=== PATIENT | female | born 1980 | race Caucasian/White ===

== ENCOUNTER 2017-12-20 22:21 | Emergency (ER) | payer OTHER ==
--- OUTSIDE RECORDS SUMMARY | 2017-12-20 22:23 | XMS REPORT | Summary of Care ---
:1980 Author Name Elsa Crockett R.N. Address [facility] Unavailable , Care Team Providers Name Role Phone LEXY NICHOLAS M.D. Unavailable Unavailable Functional Status Name Dates Details Functional status health issues are not documented Status: Name Dates Details Cognitive status health issues are not documented Status: Problems Name Dates Details S/P cholecystectomy (V45.79, Z90.49) Status: Active Medications Name Dates Details No Reported Medications Refills: 0 Active Allergies and Adverse Reactions Name Dates Details No Known Drug Allergies (Allergy) Status: Active Procedures Procedure Dates Details Procedures not documented Immunization Name Dates Details Immunizations not documented Family History Name Dates Details No pertinent family history Status: Active Social History Name Dates Details - Status: Name Dates Details Former smoker Vital Signs Date Test Result Details [id number] BP Systolic 119 mm[Hg] Status: BP Diastolic 76 mm[Hg] Status: Height 63 in Status: Weight 293 lb Status: Body Mass Index Calculated 51.9 kg/m2 Status: Body Surface Area Calculated 2.27 m2 Status: Temperature 98.2 f Status: Heart Rate 91 /min Status: [id number] BP Systolic 137 mm[Hg] Status: BP Diastolic 86 mm[Hg] Status: Height 63 in Status: Weight 283 lb Status: Body Mass Index Calculated 50.13 kg/m2 Status: Body Surface Area Calculated 2.24 m2 Status: Temperature 98.1 f Status: Heart Rate 94 /min Status: [id number] BP Systolic 117 mm[Hg] Status: BP Diastolic 76 mm[Hg] Status: Height 63 in Status: Weight 282 lb Status: Body Mass Index Calculated 49.95 kg/m2 Status: Body Surface Area Calculated 2.24 m2 Status: Temperature 98 f Status: Heart Rate 73 /min Status: Results Date Description Value Details [id number] Tobacco Use Screening Completed DONE Plan of Care Name Dates Details Planned Observations Planned Goals not documented Interventions Provided InstructionsPatient Specific Education Given; Done: 05 Sep 2017 Instructions Name Dates Details Instructions not documented Encounters Appointment; GENERAL, SERVICE On: 08-Aug-2017 13:00 Encounter Diagnosis: Problem not documented Appointment; GENERAL, SERVICE On: 15-Aug-2017 13:15 Encounter Diagnosis: Problem not documented Appointment; GENERAL, SERVICE On: 05-Sep-2017 13:15 Encounter Diagnosis: Problem not documented
--- NOTE | 2017-12-21 00:45 | ER ---
Nurse's Notes [facility] Name: Varsha Salvador Age: 37 yrs Sex: Female : 1980 Arrival Date: 12/20/2017 Time: 22:25 Bed 26 Private MD: Faisal Treviño Diagnosis: Pain in left shoulder Presentation: 12/20 22:50 Presenting complaint: Patient states: she is having left shoulder pain for a couple of bb years but over the last couple of months it has gotten worse and the last couple of nights the pain is worse with movement and the first three fingers of her left hand are numb. 23:28 Transition of care: patient was not received from another setting of care. Onset of lp1 symptoms was December 20, 2017. Risk Assessment: Do you want to hurt yourself or someone else? Patient reports no desire to harm self or others. Initial Sepsis Screen: Does the patient meet any 2 criteria? No. Patient's initial sepsis screen is negative. Does the patient have a suspected source of infection? No. Patient's initial sepsis screen is negative. Care prior to arrival: None. 23:28 Method Of Arrival: Ambulatory lp1 23:28 Acuity: KEDAR 4 lp1 Historical: - Allergies: 22:49 No Known Allergies; bb - Home Meds: 22:49 beysoprolol [Active]; Metformin Oral [Active]; bb - PMHx: 22:49 Diabetes - NIDDM; Hypertension; bb - PSHx: 22:49 Cholecystectomy; bb - Immunization history:: Adult Immunizations up to date. - Social history:: Smoking status: Patient uses tobacco products, smokes one-half pack cigarettes per day, Patient/guardian denies using alcohol, street drugs. - Ebola Screening: : No symptoms or risks identified at this time. Screenin:29 Abuse screen: Denies threats or abuse. Denies injuries from another. Nutritional lp1 screening: No deficits noted. Tuberculosis screening: No symptoms or risk factors identified. Fall Risk None identified. Assessment: 22:45 General: Appears uncomfortable, obese, Behavior is calm, cooperative, Reports she is bb having left shoulder pain for a couple of years but over the last couple of months the pain is getting worse and then last night she is having even more pain with movement and she is having numbness to the first three fingers of her left hand, pt states her PCP says it is probably "impingement" and wants her to see ortho but she cannot get an appt until the end of January. Pain: Complains of pain in left shoulder Pain currently is 1 out of 10 on a pain scale. at worst was 10 out of 10 on a pain scale. Neuro: Level of Consciousness is awake, alert, obeys commands, Oriented to person, place, time, situation. 23:38 Reassessment: Patient appears in no apparent distress at this time. No changes from lp1 previously documented assessment. Patient and/or family updated on plan of care and expected duration. Pain level reassessed. 12/21 01:00 Reassessment: Patient appears in no apparent distress at this time. Patient and/or lp1 family updated on plan of care and expected duration. Pain level reassessed. Patient is alert, oriented x 3, equal unlabored respirations, skin warm/dry/pink. Vital Signs: 12/20 22:49 BP 161 / 78; Pulse 70; Resp 18 S; Temp 98.4(O); Pulse Ox 98% on R/A; Weight 133.81 kg bb (R); Height 5 ft. 3 in. (160.02 cm) (R); Pain 07/31; 12/21 01:00 BP 149 / 75; Pulse 73; Resp 18; Pulse Ox 98% on R/A; lp1 12/20 22:49 Body Mass Index 52.26 (133.81 kg, 160.02 cm) ED Course: 12/20 22:25 Patient arrived in ED. es 22:25 Faisal Treviño MD is Private Physician. es 22:34 [facility] pm1 22:34 Mohan Encinas MD is Attending Physician. pm1 22:39 Arm band placed on. bb 23:02 X-ray completed. Portable x-ray completed in exam room. Patient tolerated procedure jw2 well. 23:04 XRAY Shoulder LEFT 2 view In Process Unspecified. EDMS 23:19 Swati Cook, JC is Primary Nurse. lp1 23:29 Triage completed. lp1 23:29 Patient has correct armband on for positive identification. lp1 23:38 Sling applied to left arm. lp1 12/21 00:44 Jose Diaz MD is Referral Physician. pm1 01:20 No provider procedures requiring assistance completed. Patient did not have IV access lp1 during this emergency room visit. Administered Medications: No medications were administered Outcome: 00:44 Discharge ordered by MD. pm1 01:20 Discharged to home ambulatory. lp1 01:20 Condition: good 01:20 Discharge instructions given to patient, Instructed on discharge instructions, follow up and referral plans. medication usage, Demonstrated understanding of instructions, follow-up care, medications, Prescriptions given X 1. 01:20 Patient left the ED. lp1 Signatures: Dispatcher [employer] EDClaudia Ortez Brenda, RN RN bb Swati Cook RN RN lp1 Alcides Esquivel NP [employer] pm1 Rima Croea jw2
--- NOTE | 2017-12-21 00:45 | EDPHYS ---
Physician Documentation [facility] Name: Varsha Salvador Age: 37 yrs Sex: Female : 1980 Arrival Date: 12/20/2017 Time: 22:25 Bed 26 Private MD: Faisal Treviño ED Physician Mohan Encinas HPI: 12/20 23:00 This 37 yrs old Female presents to ER via Ambulatory with complaints of pm1 Shoulder Pain. 23:00 The patient or guardian complains of pain. left shoulder. Context: The problem was pm1 sustained at an unknown site, resulted from an unknown reason, The patient reports no decreased range of motion. The patient reports no obvious deformity. Onset: The symptoms/episode began/occurred Patient with left shoulder pain for two years but it has gotten worse the past few weeks. has been evaluated by PCP and has been referred to orthopedics. PCP impression is shoulder impingement. Historical: - Allergies: 22:49 No Known Allergies; bb - Home Meds: 22:49 beysoprolol [Active]; Metformin Oral [Active]; bb - PMHx: 22:49 Diabetes - NIDDM; Hypertension; bb - PSHx: 22:49 Cholecystectomy; bb - Immunization history:: Adult Immunizations up to date. - Social history:: Smoking status: Patient uses tobacco products, smokes one-half pack cigarettes per day, Patient/guardian denies using alcohol, street drugs. - Ebola Screening: : No symptoms or risks identified at this time. ROS: 23:00 Constitutional: Negative for fever, chills, and weight loss, Eyes: Negative for injury, pm1 pain, redness, and discharge, ENT: Negative for injury, pain, and discharge, Neck: Negative for injury, pain, and swelling, Cardiovascular: Negative for chest pain, palpitations, and edema, Respiratory: Negative for shortness of breath, cough, wheezing, and pleuritic chest pain, Abdomen/GI: Negative for abdominal pain, nausea, vomiting, diarrhea, and constipation, Back: Negative for injury and pain. 23:00 Skin: Negative for injury, rash, and discoloration, Neuro: Negative for headache, weakness, numbness, tingling, and seizure. 23:00 MS/extremity: Positive for pain, of the left shoulder, Negative for paresthesias, tingling. Exam: 23:00 Constitutional: This is a well developed, well nourished patient who is awake, alert, pm1 and in no acute distress. Head/Face: Normocephalic, atraumatic. Neck: Trachea midline, no thyromegaly or masses palpated, and no cervical lymphadenopathy. Supple, full range of motion without nuchal rigidity, or vertebral point tenderness. No Meningismus. Chest/axilla: Normal chest wall appearance and motion. Nontender with no deformity. No lesions are appreciated. Cardiovascular: Regular rate and rhythm with a normal S1 and S2. No gallops, murmurs, or rubs. Normal PMI, no JVD. No pulse deficits. Respiratory: Lungs have equal breath sounds bilaterally, clear to auscultation and percussion. No rales, rhonchi or wheezes noted. No increased work of breathing, no retractions or nasal flaring. Abdomen/GI: Soft, non-tender, with normal bowel sounds. No distension or tympany. No guarding or rebound. No evidence of tenderness throughout. Back: No spinal tenderness. No costovertebral tenderness. Full range of motion. Skin: Warm, dry with normal turgor. Normal color with no rashes, no lesions, and no evidence of cellulitis. 23:00 Musculoskeletal/extremity: Extremities: grossly normal except: noted in the left shoulder: left shoulder: painful passive range of motion. passive range of motion intact. , Circulation is intact in all extremities. Pulses: noted to be 2+ in the left radial artery, Sensation intact. 23:00 Neuro: Orientation: is normal, Motor: moves all fours, Sensation: is normal, no obvious gross deficits, Gait: is steady, at a normal pace, without difficulty. Vital Signs: 22:49 BP 161 / 78; Pulse 70; Resp 18 S; Temp 98.4(O); Pulse Ox 98% on R/A; Weight 133.81 kg bb (R); Height 5 ft. 3 in. (160.02 cm) (R); Pain 07/31; 12/21 01:00 BP 149 / 75; Pulse 73; Resp 18; Pulse Ox 98% on R/A; lp1 12/20 22:49 Body Mass Index 52.26 (133.81 kg, 160.02 cm) bb MDM: 12/20 22:34 Patient medically screened. pm1 12/21 00:43 Data reviewed: vital signs. Data interpreted: Pulse oximetry: on room air is 98 %. pm1 Interpretation: normal. Counseling: I had a detailed discussion with the patient and/or guardian regarding: the historical points, exam findings, and any diagnostic results supporting the discharge/admit diagnosis, radiology results, the need for outpatient follow up, to return to the emergency department if symptoms worsen or persist or if there are any questions or concerns that arise at home. 12/20 22:45 Order name: XRAY Shoulder LEFT 2 view; Complete Time: 15:40 bb 12/20 23:06 Order name: Sling; Complete Time: 23:37 pm1 Administered Medications: No medications were administered Disposition: 12/21/17 00:44 Discharged to Home. Impression: Pain in left shoulder. - Condition is Stable. - Discharge Instructions: Shoulder Pain, Arm Sling Use, [id number]. - Prescriptions for Tramadol 50 mg Oral Tablet - take 1 tablet by ORAL route every 8 hours as needed; 12 tablet. - Medication Reconciliation Form, Thank You Letter, Antibiotic Education, Prescription Opioid Use form. - Follow up: Emergency Department; When: As needed; Reason: Worsening of condition. Follow up: Jose Diaz MD; When: 2 - 3 days; Reason: Recheck today's complaints, Continuance of care, Re-evaluation by your physician. - Problem is new. - Symptoms have improved. Addendum: 12/23/2017 07:13 Co-signature as Attending Physician, Mohan Encinas MD I agree with the assessment and c medley plan of care. Signatures: Dispatcher [employer] [facility] Mohan Encinas MD MD cha Ballard, Brenda, RN RN bb Swati Cook RN RN lp1 Alcides Esquivel NP [employer] pm1 Corrections: (The following items were deleted from the chart) 12/21 01:20 00:44 12/21/2017 00:44 Discharged to Home. Impression: Pain in left shoulder. Condition lp1 is Stable. Forms are Medication Reconciliation Form, Thank You Letter, Antibiotic Education, Prescription Opioid Use. Follow up: Emergency Department; When: As needed; Reason: Worsening of condition. Follow up: Jose Diaz; When: 2 - 3 days; Reason: Recheck today's complaints, Continuance of care, Re-evaluation by your physician. Problem is new. Symptoms have improved. pm1
--- NOTE | 2017-12-21 10:30 | RAD REPORT ---
EXAM DESCRIPTION: RAD - Shoulder Left 2 View - 12/20/2017 11:04 pm CLINICAL HISTORY: Persistent left shoulder pain with recent worsening of symptoms COMPARISON: None. TECHNIQUE: Internal and external rotation views of the left shoulder were obtained. FINDINGS: There is no fracture or dislocation. Minimal degenerative change along the articular surfa ce of the clavicle. No measurable spurring. Acromial humeral joint space normal with no abnormal soft tissue calcification. No acute or destructive finding. IMPRESSION: Negative two-view left shoulder examination for acute finding. Minimal AC joint degener ative change.
== END 2017-12-21 01:20 | disposition home or self-care (01) ==
LOC: ER 22:21
DX: M25.512 Pain in left shoulder (principal); I10 Essential (primary) hypertension; E11.9 Type 2 diabetes mellitus without complications; F17.210 Nicotine dependence, cigarettes, uncomplicated
CPT/HCPCS: 99283

== ENCOUNTER 2019-12-25 17:36 | Emergency (ER) | payer OTHER ==
--- OUTSIDE RECORDS SUMMARY | 2019-12-25 17:44 | XMS REPORT | Continuity of Care Document ---
:1980 Author Organization [facility] t Address [address] [place] [address] Care Team Providers Name Role Phone GENERAL Attending Clinician Unavailable Problems Condition Condition Condition Status Onset Resolution Last Treating Co mments Source Name Details Category Date Date Treatment Clinician Date S/P S/P Problem Active [facility] [place] [facility] Allergies, Adverse Reactions, Alerts This patient has no known allergies or adverse reactions. Social History Smoking Status Start Date Stop Date Source Former smoker [facility] Medications This patient has no known medications. Vital Signs Vital Name Observation Time Observation Value Comments Source BP Systolic 2017-09-05 13:19:00 119 mm[Hg] [facility] [place] [facility] BP Diastolic 2017-09-05 13:19:00 76 mm[Hg] [facility] [place] [facility] Height 2017-09-05 13:19:00 63 [in_us] [facility] [place] [facility] Weight 2017-09-05 13:19:00 293 [lb_av] [facility] [place] [facility] Body Mass Index 2017-09-05 13:19:00 51.9 kg/m2 [facility] Cal[facility] [place] [facility] Temperature 2017-09-05 13:19:00 98.2 [degF] [facility] [place] [facility] Heart Rate 2017-09-05 13:19:00 91 /min [facility] [place] [facility] BP Systolic 2017-08-15 13:52:00 137 mm[Hg] [facility] [place] [facility] BP Diastolic 2017-08-15 13:52:00 86 mm[Hg] [facility] [place] [facility] Height 2017-08-15 13:52:00 63 [in_us] [facility] [place] [facility] Weight 2017-08-15 13:52:00 283 [lb_av] [facility] [place] [facility] Body Mass Index 2017-08-15 13:52:00 50.13 kg/m2 [facility] [place] [facility] Temperature 2017-08-15 13:52:00 98.1 [degF] [facility] [place] [facility] Heart Rate 2017-08-15 13:52:00 94 /min [facility] [place] [facility] BP Systolic 2017-08-08 12:58:00 117 mm[Hg] [facility] [place] [facility] BP Diastolic 2017-08-08 12:58:00 76 mm[Hg] [facility] [place] [facility] Height 2017-08-08 12:58:00 63 [in_us] [facility] [place] [facility] Weight 2017-08-08 12:58:00 282 [lb_av] [facility] [place] [facility] Body Mass Index 2017-08-08 12:58:00 49.95 kg/m2 [facility] [place] [facility] Temperature 2017-08-08 12:58:00 98 [degF] [facility] [place] [facility] Heart Rate 2017-08-08 12:58:00 73 /min [facility] [place] [facility] Procedures This patient has no known procedures. Encounters Start End Encounter Admission Attending Care Care Encounter Source Date/Time Date/Time Type Type Clinicians Facility Department ID 2017-09-05 [facility] General [id number] [facility] 13:15:00 13:15:00 t; SERVICE [facility] [place] [place] [facility] ans 2017-08-15 2017-08-[facility] General [id number] [facility] 13:15:00 13:15:00 t; SERVICE Surgery [facility], [place] [facility] 2017-08-08 2017-08-08 Appointmen GENERAL, [facility] UTP [id number] [facility] 13:00:00 13:00:00 t; SERVICE [facility] [place] [place] [facility] ans Results Test Description Test Time Test Comments Results Result Comments Source Tobacco Use Screening 2017-08-08 19:00:00 Test Item Value Reference Range Interpretation Comme nts Completed (test code = Completed) DONE [facility]
[2019-12-25 21:01] LABS: Absolute Lymphocytes (CBC) 2.6 K/uL (0.7-4.9); Basophils % 0.8 % (0-1.3); Hematocrit 44.9 % (36.0-45.0); Lymphocytes % 19.3 % (15.3-44.8); MPV 8.3 fL (7.6-11.3); RBC Red Blood Cell Count 4.84 M/uL (3.86-4.86)
[2019-12-25 21:23] LABS: ALT/SGPT 39 U/L (12-78); AST/SGOT 15 U/L (15-37); Albumin 3.6 g/dL (3.4-5.0); Alkaline Phosphatase 64 U/L (45-117); BUN Blood Urea Nitrogen 18 mg/dL (7-18); Bicarbonate 25 mmol/L (21-32); Bilirubin Direct < 0.1 mg/dL (0-0.2); Bilirubin Total 0.3 mg/dL (0.2-1.0); Glucose Level 125 mg/dL (74-106); Lipase 76 U/L (73-393); Protein, Total 7.7 g/dL (6.4-8.2); Sodium Level 140 mmol/L (136-145)
[2019-12-25] MEDS ORDERED: NA CHLORIDE 0.9% 1,000 ML ONE (21:27)
[2019-12-25 21:30] LABS: Urine Blood 3+ (NEG); Urine Glucose NEGATIVE (NEG); Urine Protein NEGATIVE (NEG); Urine Specific Gravity 1.025 (1.005-1.030)
[2019-12-25 21:30] LABS: Urine Specific Gravity 1.025 (1.005-1.030)
--- NOTE | 2019-12-25 22:39 | ER ---
Nurse's Notes [facility] Name: Varsha Salvador Age: 39 yrs Sex: Female : 1980 Arrival Date: 12/25/2019 Time: 17:39 Bed 14 Private MD: Faisal Treviño Diagnosis: Right 6 mm proximal ureteral calculus with mild right hydronephrosis and proximal hydroureter Presentation: 12/24 17:44 Chief complaint: Patient states: Right lower back pain that wraps around to right ll1 abdomen since last night at work. Slight nausea. No fever. Coronavirus screen: Proceed with normal triage. Patient denies a cough. Patient denies shortness of breath or difficulty breathing. Patient denies measured and/or subjective temperature greater than 100.4F prior to today's visit. Patient denies travel on a cruise ship or to a country the [facility] currently lists as an affected area. Patient denies contact with known and/or suspected case of COVID-19. Ebola Screen: Patient denies travel to an Ebola-affected area in the 21 days before illness onset. Initial Sepsis Screen: Does the patient meet any 2 criteria? No. Patient's initial sepsis screen is negative. Risk Assessment: Do you want to hurt yourself or someone else? Patient reports no desire to harm self or others. Onset of symptoms was December 24, 2019. 17:44 Method Of Arrival: Ambulatory ll1 17:44 Acuity: KEDAR 3 ll1 Historical: - Allergies: 17:46 Latex, Natural Rubber; ll1 17:46 adhesive tape-silicones; ll1 - PMHx: 17:46 Diabetes - NIDDM; Hypertension; ll1 - PSHx: 17:46 Cholecystectomy; ll1 - Immunization history:: Adult Immunizations up to date, Flu vaccine is not up to date. - Social history:: Smoking status: Patient reports the use of cigarette tobacco products, smokes one-half pack cigarettes per day, Patient/guardian denies using alcohol, street drugs, tobacco products. Screenin:15 Abuse screen: Denies threats or abuse. Nutritional screening: No deficits noted. jb4 Tuberculosis screening: No symptoms or risk factors identified. Fall Risk None identified. Assessment: 19:15 General: Appears in no apparent distress. uncomfortable, Behavior is calm, cooperative, jb4 appropriate for age. Pain: Complains of pain in right low back Pain radiates to right lower quadrant Pain currently is 6 out of 10 on a pain scale. Quality of pain is described as throbbing, Pain began 1 day ago. Is intermittent. Neuro: Level of Consciousness is awake, alert, obeys commands, Oriented to person, place, time, situation. Cardiovascular: Patient's skin is warm and dry. Respiratory: Airway is patent Respiratory effort is even, unlabored, Respiratory pattern is regular, symmetrical. GI: Abdomen is non-distended, obese, Bowel sounds present X 4 quads. Abd is soft and non tender X 4 quads. : No signs and/or symptoms were reported regarding the genitourinary system. EENT: No signs and/or symptoms were reported regarding the EENT system. Derm: Skin is intact, Skin is pink, warm \T\ dry. Musculoskeletal: Circulation, motion, and sensation intact. Range of motion: intact in all extremities. 20:30 Reassessment: Patient appears in no apparent distress at this time. Patient and/or jb4 family updated on plan of care and expected duration. Pain level reassessed. Patient is alert, oriented x 3, equal unlabored respirations, skin warm/dry/pink. 21:30 Reassessment: Patient appears in no apparent distress at this time. Patient and/or jb4 family updated on plan of care and expected duration. Pain level reassessed. Patient is alert, oriented x 3, equal unlabored respirations, skin warm/dry/pink. 22:30 Reassessment: Patient appears in no apparent distress at this time. Patient and/or jb4 family updated on plan of care and expected duration. Pain level reassessed. Patient is alert, oriented x 3, equal unlabored respirations, skin warm/dry/pink. 22:50 Reassessment: Patient appears in no apparent distress at this time. Patient and/or jb4 family updated on plan of care and expected duration. Pain level reassessed. Patient is alert, oriented x 3, equal unlabored respirations, skin warm/dry/pink. Pt verbalized understanding of d/c and follow up instructions. Denies questions or concerns. Vital Signs: 17:44 BP 183 / 85; Pulse 76; Resp 18; Temp 98.5; Pulse Ox 97% ; Weight 139.25 kg; Height 5 ll1 ft. 3 in. (160.02 cm); Pain 8/10; 19:15 BP 142 / 80; Pulse 69; Resp 16; Pulse Ox 98% on R/A; jb4 21:15 BP 159 / 75; Pulse 83; Resp 16; Pulse Ox 99% on R/A; jb4 22:35 BP 146 / 74; Pulse 69; Resp 16; Pulse Ox 98% on R/A; jb4 17:44 Body Mass Index 54.38 (139.25 kg, 160.02 cm) ll1 ED Course: 17:39 Patient arrived in ED. mr 17:39 Faisal Treviño MD is Private Physician. mr 17:46 Triage completed. ll1 17:47 Arm band placed on Patient notified of wait time. ll1 19:05 Ermias Dowling, JC is Primary Nurse. jb4 19:15 Patient has correct armband on for positive identification. Bed in low position. Call jb4 light in reach. Side rails up X 1. Pulse ox on. NIBP on. 20:27 Fan Garber MD is Attending Physician. pkl 20:45 Initial lab(s) drawn, by ar, sent to lab. Inserted saline lock: 20 gauge in left jb4 antecubital area, using aseptic technique. Blood collected. 21:57 CT Stone Protocol In Process Unspecified. EDMS 22:36 Julio Almonte MD is Referral Physician. pkl 22:50 No provider procedures requiring assistance completed. IV discontinued, intact, jb4 bleeding controlled, No redness/swelling at site. Pressure dressing applied. Administered Medications: 21:20 Drug: NS 0.9% 1000 ml Route: IV; Rate: 1000 ml; Site: left antecubital; jb4 22:20 Follow up: Response: No adverse reaction; IV Status: Completed infusion; IV Intake: jb4 1000ml Intake: 22:20 IV: 1000ml; Total: 1000ml. jb4 Outcome: 22:38 Discharge ordered by . pkl 22:50 Discharged to home ambulatory. jb4 22:50 Condition: stable 22:50 Discharge instructions given to patient, Instructed on discharge instructions, follow up and referral plans. medication usage, Demonstrated understanding of instructions, follow-up care, medications, Prescriptions given X 2. 23:08 Patient left the ED. vc Signatures: Dispatcher [employer] EDMS Fan Garber MD MD pkl Rivera [facility] mr Nitesh, Ermias, RN RN jb4 Socorro Ruiz, RN RN Dean Dorman RN RN ll1
--- NOTE | 2019-12-25 22:39 | EDPHYS ---
Physician Documentation [facility] Name: Varsha Salvador Age: 39 yrs Sex: Female : 1980 Arrival Date: 12/25/2019 Time: 17:39 Bed 14 Private MD: Faisal Treviño ED Physician Fan Garber HPI: 12/24 20:57 This 39 yrs old Female presents to ER via Ambulatory with complaints of pkl Abdominal Pain, Back Pain. 20:57 The patient complains of pain in the right flank. The pain radiates to the right lower pkl quadrant. Onset: The symptoms/episode began/occurred last night. Associated signs and symptoms: Pertinent positives: nausea. The patient has not experienced similar symptoms in the past. Historical: - Allergies: 17:46 Latex, Natural Rubber; ll1 17:46 adhesive tape-silicones; ll1 - PMHx: 17:46 Diabetes - NIDDM; Hypertension; ll1 - PSHx: 17:46 Cholecystectomy; ll1 - Immunization history:: Adult Immunizations up to date, Flu vaccine is not up to date. - Social history:: Smoking status: Patient reports the use of cigarette tobacco products, smokes one-half pack cigarettes per day, Patient/guardian denies using alcohol, street drugs, tobacco products. ROS: 20:57 Eyes: Negative for injury, pain, redness, and discharge, ENT: Negative for injury, pkl pain, and discharge, Neck: Negative for injury, pain, and swelling, Cardiovascular: Negative for chest pain, palpitations, and edema, Respiratory: Negative for shortness of breath, cough, wheezing, and pleuritic chest pain, Abdomen/GI: Negative for abdominal pain, nausea, vomiting, diarrhea, and constipation. 20:57 Back: Positive for flank pain, on the right. 20:57 : Negative for urinary symptoms. 20:57 MS/extremity: Negative for acute changes. 20:57 Skin: Negative for rash. 20:57 Neuro: Negative for altered mental status, loss of consciousness. Exam: 20:57 Head/Face: Normocephalic, atraumatic. Eyes: Pupils equal round and reactive to light, pkl extra-ocular motions intact. Lids and lashes normal. Conjunctiva and sclera are non-icteric and not injected. Cornea within normal limits. Periorbital areas with no swelling, redness, or edema. ENT: Nares patent. No nasal discharge, no septal abnormalities noted. Tympanic membranes are normal and external auditory canals are clear. Oropharynx with no redness, swelling, or masses, exudates, or evidence of obstruction, uvula midline. Mucous membranes moist. Neck: Trachea midline, no thyromegaly or masses palpated, and no cervical lymphadenopathy. Supple, full range of motion without nuchal rigidity, or vertebral point tenderness. No Meningismus. Chest/axilla: Normal chest wall appearance and motion. Nontender with no deformity. No lesions are appreciated. Cardiovascular: Regular rate and rhythm with a normal S1 and S2. No gallops, murmurs, or rubs. Normal PMI, no JVD. No pulse deficits. Respiratory: Lungs have equal breath sounds bilaterally, clear to auscultation and percussion. No rales, rhonchi or wheezes noted. No increased work of breathing, no retractions or nasal flaring. Abdomen/GI: Soft, non-tender, with normal bowel sounds. No distension or tympany. No guarding or rebound. No evidence of tenderness throughout. Back: No spinal tenderness. No costovertebral tenderness. Full range of motion. Skin: Warm, dry with normal turgor. Normal color with no rashes, no lesions, and no evidence of cellulitis. MS/ Extremity: Pulses equal, no cyanosis. Neurovascular intact. Full, normal range of motion. Neuro: Awake and alert, GCS 15, oriented to person, place, time, and situation. Cranial nerves II-XII grossly intact. Motor strength 5/5 in all extremities. Sensory grossly intact. Cerebellar exam normal. Normal gait. Vital Signs: 17:44 BP 183 / 85; Pulse 76; Resp 18; Temp 98.5; Pulse Ox 97% ; Weight 139.25 kg; Height 5 ll1 ft. 3 in. (160.02 cm); Pain 8/10; 19:15 BP 142 / 80; Pulse 69; Resp 16; Pulse Ox 98% on R/A; jb4 21:15 BP 159 / 75; Pulse 83; Resp 16; Pulse Ox 99% on R/A; jb4 22:35 BP 146 / 74; Pulse 69; Resp 16; Pulse Ox 98% on R/A; jb4 17:44 Body Mass Index 54.38 (139.25 kg, 160.02 cm) ll1 MDM: 20:27 Patient medically screened. pkl 22:33 Data reviewed: vital signs, nurses notes, lab test result(s), radiologic studies, CT pkl scan. ED course: Discussed lab. and CT Scan results with patient. Advised to follow up with Dr. Almonte ( Urology ) in 2 to 3 days. Return if necessary. Patient understood instruction. 12/24 19:50 Order name: Basic Metabolic Panel; Complete Time: 22:27 [facility] 12/24 19:50 Order name: CBC with Diff; Complete Time: 22:27 [facility] 12/24 19:50 Order name: Hepatic Function; Complete Time: 22:27 [facility] 12/24 19:50 Order name: Lipase; Complete Time: 22:27 [facility] 12/24 21:23 Order name: Urine --Ancillary (enter results); Complete Time: 22:27 [facility] 12/24 21:24 Order name: Urine Dipstick--Ancillary (enter results); Complete Time: 22:27 [facility] 12/24 19:50 Order name: IV Saline Lock; Complete Time: 21:08 [facility] 12/24 19:50 Order name: Labs collected and sent; Complete Time: 21:08 [facility] 12/24 19:52 Order name: Urine Dipstick-Ancillary (obtain specimen); Complete Time: 21:08 [facility] 12/24 19:52 Order name: Urine Test (obtain specimen); Complete Time: 21:08 [facility] 12/24 20:55 Order name: CT Stone Protocol pkl Administered Medications: 21:20 Drug: NS 0.9% 1000 ml Route: IV; Rate: 1000 ml; Site: left antecubital; [facility] 22:20 Follow up: Response: No adverse reaction; IV Status: Completed infusion; IV Intake: jb4 1000ml Disposition: 12/25/19 22:38 Discharged to Home. Impression: Right 6 mm proximal ureteral calculus with mild right hydronephrosis and proximal hydroureter. - Condition is Stable. - Prescriptions for Tylenol- Codeine #3 300-30 mg Oral Tablet - take 1 tablet by ORAL route every 6 hours As needed; 30 tablet. Flomax 0.4 mg Oral Capsule, Sust. Release 24 hr - take 1 capsule by ORAL route once daily 1/2 hour following the same meal each day; 15 capsule. - Medication Reconciliation Form, Thank You Letter, Antibiotic Education, Prescription Opioid Use form. - Follow up: Julio Almonte MD; When: 2 - 3 days; Reason: Re-evaluation by your physician. - Problem is new. - Symptoms are unchanged. Signatures: Dispatcher [employer] EDMS Fan Garber MD MD pkl Ermias Dowling RN RN jb4 Socorro Ruiz RN RN Dean Dorman RN RN ll1 Corrections: (The following items were deleted from the chart) 23:08 22:38 12/25/2019 22:38 Discharged to Home. Impression: Right 6 mm proximal ureteral vc calculus with mild right hydronephrosis and proximal hydroureter. Condition is Stable. Forms are Medication Reconciliation Form, Thank You Letter, Antibiotic Education, Prescription Opioid Use. Follow up: Julio Almonte; When: 2 - 3 days; Reason: Re-evaluation by your physician. Problem is new. Symptoms are unchanged. pkl
[2019-12-25 23:22] VITALS: TEMP 98.5
[2019-12-25 23:25] VITALS: BP 159/75; O2SAT 99
--- NOTE | 2019-12-26 19:55 | RAD REPORT ---
EXAM DESCRIPTION: CT - Stone Protocol - 12/26/2019 5:08 am CLINICAL HISTORY: The patient is 39 years old and is Female; right flank pain TECHNIQUE: Axial computed tomography images of the abdomen and pelvis without intravenous contrast. Sagittal and coronal reformatted images were created and reviewed. This CT exam was performed usi ng one or more of the following dose reduction techniques: automated exposure control, adjustment o f the mA and/or kV according to patient size, and/or use of iterative reconstruction technique. COMPARISON: No relevant prior studies available. FINDINGS: LIMITATIONS: Suboptimal study secondary to artifact related to patient body habitus. LUNG BASES: Unremarkable. No mass. No consolidation. ABDOMEN: LIVER: The liver is enlarged and diffusely fatty. GALLBLADDER AND BILE DUCTS: Surgical clips are present in the right upper quadrant, consistent wi th previous cholecystectomy. A biliary stent is present. PANCREAS: The pancreas is atrophic. No ductal dilation. SPLEEN: Unremarkable. ADRENALS: A fat-containing 1.7 cm left adrenal gland nodule consistent with a benign adenoma is p resent. No follow-up imaging is recommended. KIDNEYS AND URETERS: Mild right hydronephrosis and proximal hydroureter is present secondary to a 6 mm proximal right ureteral calculus. Edema of the right kidney with perinephric stranding is pr esent. The left kidney is normal. STOMACH AND BOWEL: The stomach is decompressed. The small bowel is normal in caliber. Stool is n oted throughout the colon. There is no mucosal thickening or evidence of bowel obstruction. PELVIS: APPENDIX: The appendix is normal in caliber without surrounding inflammation. BLADDER: The bladder is not well distended. REPRODUCTIVE: Unremarkable as visualized. ABDOMEN and PELVIS: INTRAPERITONEAL SPACE: Unremarkable. No free air. No significant fluid collection. BONES/JOINTS: No acute fracture. SOFT TISSUES: The soft tissues are normal. VASCULATURE: Unremarkable. No abdominal aortic aneurysm. LYMPH NODES: Unremarkable. No enlarged lymph nodes. IMPRESSION: Mild right hydronephrosis and proximal hydroureter is present secondary to a 6 mm proximal right u reteral calculus. Electronically signed by: Abimbola Finch MD 12/25/2019 10:19 PM CDT Due to temporary technical issues with the PACS/Fluency reporting system, reports are being signed by the in house radiologist without review as a courtesy to ensure prompt reporting. The interpreting r adiologist is fully responsible for the content of the report.
== END 2019-12-25 23:08 | disposition home or self-care (01) ==
LOC: ER 17:36
DX: N13.2 Hydronephrosis with renal and ureteral calculous obstruction (principal); N13.4 Hydroureter; Z91.040 Latex allergy status; F17.210 Nicotine dependence, cigarettes, uncomplicated
CPT/HCPCS: 85025; 80048; 36415; 81025; 80076; 81003; 83690; 76377; 74176; 96360; 99284; J7030

== ENCOUNTER 2020-01-08 02:34 | Emergency (ER) | payer OTHER ==
--- OUTSIDE RECORDS SUMMARY | 2020-01-08 02:37 | XMS REPORT | Continuity of Care Document ---
:1980 Author Organization [facility] t Address [address] [place] [address] Care Team Providers Name Role Phone GENERAL [...] Start Date Stop Date Source Former smoker [facility] Medications This patient has no known medications. Vital Signs Vital Name Observation Time Observation Value Comments Source BP Systolic 2017-09-05 13:19:00 119 mm[Hg] [facility] BP Diastolic 2017-09-05 13:19:00 76 mm[Hg] [facility] Height 2017-09-05 13:19:00 63 [in_us] [facility] [place] [facility] Weight 2017-09-05 13:19:00 293 [lb_av] [facility] [place] [facility] Body Mass Index 2017-09-05 13:19:00 51.9 kg/m2 [facility] [place] [facility] Temperature 2017-09-05 13:19:00 98.2 [degF] [facility] [place] [facility] Heart Rate 2017-09-05 13:19:00 91 /min [facility] [place] [facility] BP Systolic 2017-08-15 13:52:00 137 mm[Hg] [facility] [place] [facility] BP Diastolic 2017-08-15 13:52:00 86 mm[Hg] [facility] [place] [facility] Height 2017-08-15 13:52:00 63 [in_us] [facility] [place] [facility] Weight 2017-08-15 13:52:00 283 [lb_av] [...] Clinicians Facility Department ID 2017-09-05 2017-09-[facility] General [id number] Univers 13:15:00 13:15:00 t; SERVICE [facility] [place] [place] SERVICE Physici ans 2017-08-15 2017-08-15 [facility], [facility] General [id number] Univers 13:15:00 13:15:00 t; SERVICE [facility] [place], [place] SERVICE Physici ans 2017-08-08 2017-08-08 [facility], [facility] UTP [id number] Univers 13:00:00 13:00:00 t; [facility]ICE [facility] [place] [place] SERVICE Physici ans Results Test Description Test Time Test Comments Results Result Comments Source Tobacco Use Screening 2017-08-08 19:00:00 Test Item Value Reference Range Interpretation Comme nts Completed (test code = Completed) DONE [facility]
[2020-01-08] MEDS ORDERED: ONDANSETRON 4 MG (ODT) TAB ONE (03:21)
[2020-01-08] MEDS ORDERED: MECLIZINE HCL 12.5 MG TAB ONE (03:21)
--- NOTE | 2020-01-08 04:24 | EDPHYS ---
Physician Documentation [facility] Name: Varsha Salvador Age: 39 yrs Sex: Female : 1980 Arrival Date: 01/08/2020 Time: 02:37 Bed 5 Private MD: ED Physician Thee Denton HPI: 01/07 04:05 This 39 yrs old Female presents to ER via Wheelchair with complaints of tw4 Nausea, Dizziness. 04:05 The patient presents with sense of spinning. Onset: The symptoms/episode began/occurred tw4 today. Context: occurred at daycare, occurred while the patient was getting up from bed. Modifying factors: The symptoms are alleviated by closing eyes, lying down. Associated signs and symptoms: The patient has no apparent associated signs or symptoms. The patient has not experienced similar symptoms in the past. 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 - Social history:: Smoking status: Patient reports the use of cigarette tobacco products, smokes one-half pack cigarettes per day. ROS: 04:05 Constitutional: Negative for fever, chills, and weight loss, Eyes: Negative for injury, tw4 pain, redness, and discharge, Cardiovascular: Negative for chest pain, palpitations, and edema, Respiratory: Negative for shortness of breath, cough, wheezing, and pleuritic chest pain. 04:05 Abdomen/GI: Positive for abdominal pain, nausea and vomiting, nausea, vomiting, and diarrhea, nausea, vomiting, Negative for abdominal cramps, abdominal distension, anorexia, dysphagia, hematemesis, black/tarry stool, rectal pain, rectal bleeding, bowel incontinence. 04:22 Neuro: Positive for dizziness, Negative for altered mental status, headache, hearing tw4 loss, numbness, seizure activity, speech changes, syncope, near syncope, tinnitus. Exam: 04:05 Constitutional: This is a well developed, well nourished patient who is awake, alert, tw4 and in no acute distress. Head/Face: Normocephalic, atraumatic. Chest/axilla: Normal chest wall appearance and motion. Nontender with no deformity. No lesions are appreciated. Cardiovascular: Regular rate and rhythm with a normal S1 and S2. No gallops, murmurs, or rubs. Normal PMI, no JVD. No pulse deficits. Respiratory: Lungs have equal breath sounds bilaterally, clear to auscultation and percussion. No rales, rhonchi or wheezes noted. No increased work of breathing, no retractions or nasal flaring. Abdomen/GI: Soft, non-tender, with normal bowel sounds. No distension or tympany. No guarding or rebound. No evidence of tenderness throughout. Skin: Warm, dry with normal turgor. Normal color with no rashes, no lesions, and no evidence of cellulitis. MS/ Extremity: Pulses equal, no cyanosis. Neurovascular intact. Full, normal range of motion. 04:05 Neuro: Awake and alert, GCS 15, oriented to person, place, time, and situation. Cranial nerves II-XII grossly intact. Motor strength 5/5 in all extremities. Sensory grossly intact. Cerebellar exam normal. Normal gait. Vital Signs: 02:56 BP 121 / 66; Pulse 70; Resp 19; Pulse Ox 98% ; ea 02:59 BP 121 / 66; Pulse 65; Resp 19 S; Temp 97.6(O); Pulse Ox 99% on R/A; Weight 137.44 kg jd3 (R); Height 5 ft. 3 in. (160.02 cm) (R); Pain 2/10; 03:28 BP 140 / 66; Pulse 63; Resp 18; Pulse Ox 99% ; ea 03:55 BP 136 / 54; Pulse 65; Resp 18; Pulse Ox 98% on R/A; ea 04:30 BP 131 / 62; Pulse 69; Resp 16; Pulse Ox 98% ; rr5 02:59 Body Mass Index 53.67 (137.44 kg, 160.02 cm) jd3 MDM: 02:53 Patient medically screened. tw4 05:50 Differential diagnosis: cardiac arrhythmia, CVA. Data reviewed: vital signs, nurses tw4 notes. Counseling: I had a detailed discussion with the patient and/or guardian regarding: the historical points, exam findings, and any diagnostic results supporting the discharge/admit diagnosis. Medication response: Zofran markedly relieved the patient's nausea. Meclizine. Response to treatment: the patient's symptoms have markedly improved after treatment, and as a result, I will discharge patient. Special discussion: I discussed with the patient/guardian in detail that at this point there is no indication for admission to the hospital. It is understood, however, that if the symptoms persist or worsen the patient needs to return immediately for re-evaluation. Administered Medications: 03:13 CANCELLED (Other Intervention Used): Meclizine 50 mg PO once ea 03:19 Drug: Zofran (Ondansetron) 4 mg Route: PO; ea 04:20 Follow up: Response: No adverse reaction rr5 03:19 Drug: Meclizine 25 mg Route: PO; ea 04:20 Follow up: Response: No adverse reaction rr5 Disposition: 01/08/20 04:23 Discharged to Home. Impression: Vertigo of central origin, unspecified ear. - Condition is Stable. - Discharge Instructions: Vertigo, [id number]. - Prescriptions for Meclizine 25 mg Oral Tablet - take 1 tablet by ORAL route every 8 hours As needed; 30 tablet. Zofran 4 mg Oral Tablet - take 1 tablet by ORAL route every 12 hours As needed; 6 tablet. - Medication Reconciliation Form, Thank You Letter, Antibiotic Education, Prescription Opioid Use form. - Follow up: Private Physician; When: Upon discharge from the Emergency Department; Reason: Recheck today's complaints, Continuance of care, Re-evaluation by your physician. - Problem is new. - Symptoms have improved. Signatures: Morena Figueroa RN Terrence Conley ea, RN RN jd3 Thee Denton MD MD tw4 Edwin Carmichael RN rr5 Corrections: (The following items were deleted from the chart) 03:13 03:11 Meclizine 50 mg PO once ordered. ea ea 03:13 03:13 Meclizine 50 mg PO once ordered. ea ea 04:47 04:23 01/08/2020 04:23 Discharged to Home. Impression: Vertigo of central origin, ea unspecified ear. Condition is Stable. Forms are Medication Reconciliation Form, Thank You Letter, Antibiotic Education, Prescription Opioid Use. Follow up: Private Physician; When: Upon discharge from the Emergency Department; Reason: Recheck today's complaints, Continuance of care, Re-evaluation by your physician. Problem is new. Symptoms have improved. tw4
--- NOTE | 2020-01-08 04:24 | ER ---
Nurse's Notes [facility] Name: Varsha Salvador Age: 39 yrs Sex: Female : 1980 Arrival Date: 01/08/2020 Time: 02:37 Bed 5 Private MD: Diagnosis: Vertigo of central origin, unspecified ear Presentation: 01/07 02:57 Chief complaint: Patient states: "I am having really bad dizziness which is causing me jd3 to be nauseous. even if i turn my head i get dizzy. I also have a kidney stone currently, but that is nothing compared to my current dizziness.". Coronavirus screen: Proceed with normal triage. Ebola Screen: Patient negative for fever greater than or equal to 101.5 degrees Fahrenheit, and additional compatible Ebola Virus Disease symptoms. Initial Sepsis Screen: Does the patient meet any 2 criteria? No. Patient's initial sepsis screen is negative. Does the patient have a suspected source of infection? No. Patient's initial sepsis screen is negative. Risk Assessment: Do you want to hurt yourself or someone else? Patient reports no desire to harm self or others. Onset of symptoms was January 08, 2020. 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 - Social history:: Smoking status: Patient reports the use of cigarette tobacco products, smokes one-half pack cigarettes per day. Screenin:26 Abuse screen: Denies threats or abuse. Nutritional screening: No deficits noted. ea Tuberculosis screening: No symptoms or risk factors identified. Fall Risk None identified. Assessment: 03:25 General: Appears in no apparent distress. Behavior is calm, cooperative, appropriate ea for age. Pain: Denies pain. Neuro: Level of Consciousness is awake, alert, obeys commands, Oriented to person, place, time, situation. Neuro: Reports dizziness. Respiratory: Airway is patent Respiratory effort is even, unlabored, Respiratory pattern is regular, symmetrical. GI: Parent/caregiver reports the patient having nausea. Derm: Skin is pink, warm \\T\\ dry. 04:30 Reassessment: Patient appears in no apparent distress at this time. Patient is alert, rr5 oriented x 3, equal unlabored respirations, skin warm/dry/pink. discharge instruction given and explained without complaints made, reassess by ED provider. 04:40 Reassessment: Patient and/or family updated on plan of care and expected duration. Pain ea level reassessed. Patient is alert, oriented x 3, equal unlabored respirations, skin warm/dry/pink. Discharge instruction given to patient, verbalized the understanding of instruction. Pt left ED via wheelchair, accompanied by family. Pt assisted to vehicle, tolerated well. Vital Signs: 02:56 BP 121 / 66; Pulse 70; Resp 19; Pulse Ox 98% ; ea 02:59 BP 121 / 66; Pulse 65; Resp 19 S; Temp 97.6(O); Pulse Ox 99% on R/A; Weight 137.44 kg jd3 (R); Height 5 ft. 3 in. (160.02 cm) (R); Pain 2/10; 03:28 BP 140 / 66; Pulse 63; Resp 18; Pulse Ox 99% ; ea 03:55 BP 136 / 54; Pulse 65; Resp 18; Pulse Ox 98% on R/A; ea 04:30 BP 131 / 62; Pulse 69; Resp 16; Pulse Ox 98% ; rr5 02:59 Body Mass Index 53.67 (137.44 kg, 160.02 cm) jd3 ED Course: 02:37 Patient arrived in ED. ag3 02:53 Thee Denton MD is Attending Physician. tw4 02:55 Morena Figueroa, JC is Primary Nurse. ea 02:59 Triage completed. jd3 03:02 Arm band placed on. jd3 03:26 Patient has correct armband on for positive identification. Bed in low position. Call ea light in reach. Side rails up X2. 04:33 No provider procedures requiring assistance completed. Patient did not have IV access rr5 during this emergency room visit. Administered Medications: 03:13 CANCELLED (Other Intervention Used): Meclizine 50 mg PO once ea 03:19 Drug: Zofran (Ondansetron) 4 mg Route: PO; ea 04:20 Follow up: Response: No adverse reaction rr5 03:19 Drug: Meclizine 25 mg Route: PO; ea 04:20 Follow up: Response: No adverse reaction rr5 Outcome: 04:23 Discharge ordered by . tw4 04:33 Discharged to home ambulatory, with family. rr5 04:33 Condition: stable 04:33 Discharge instructions given to patient, Instructed on discharge instructions, follow up and referral plans. medication usage, Demonstrated understanding of instructions, follow-up care, medications, Prescriptions given X 2. 04:47 Patient left the ED. ea Signatures: Morena Figueroa RN RN Terrence Pang RN RN jd3 Thee Denton MD MD tw4 Yue Marino Raymond RN RN rr5
[2020-01-08 05:02] VITALS: TEMP 97.6
[2020-01-08 05:05] VITALS: BP 136/54; O2SAT 98
== END 2020-01-08 04:47 | disposition home or self-care (01) ==
LOC: ER 02:34
DX: H81.4 Vertigo of central origin (principal); Z91.040 Latex allergy status; F17.210 Nicotine dependence, cigarettes, uncomplicated
CPT/HCPCS: 99283; J8597

== ENCOUNTER 2020-06-18 22:01 | Inpatient (IN) | payer OTHER ==
--- OUTSIDE RECORDS SUMMARY | 2020-06-18 22:03 | XMS REPORT | Continuity of Care Document ---
:1980 Author Organization [facility] t Address [address] [place] [address] Care Team Providers Name Role Phone GENERAL [...] Start Date Stop Date Source Former smoker [facility] Medications This patient has no known medications. Vital Signs Vital Name Observation Time Observation Value Comments Source BP Systolic 2017-09-05 13:19:00 119 mm[Hg] [facility] BP Diastolic 2017-09-05 13:19:00 76 mm[Hg] [facility] Height 2017-09-05 13:19:00 63 [in_us] [facility] Weight 2017-09-05 13:19:00 293 [lb_av] [facility] [place] [facility] Body Mass Index 2017-09-05 13:19:00 51.9 kg/m2 [facility] [place] [facility] Temperature 2017-09-05 13:19:00 98.2 [degF] [facility] [place] [facility] Heart Rate 2017-09-05 13:19:00 91 /min [facility] [place] [facility] BP Systolic 2017-08-15 13:52:00 137 mm[Hg] [facility] [place] [facility] BP Diastolic 2017-08-15 13:52:00 86 mm[Hg] [facility] [place] [facility] Height 2017-08-15 13:52:00 63 [in_us] [facility] [place] [facility] Weight 2017-08-15 13:52:00 283 [lb_av] [...] Type Clinicians Facility Department ID 2017-09-05 2017-09-05 [facility], [facility] General [id number] [facility] 13:15:00 13:15:00 t; SERVICE [facility] [place] [place] [facility] ans 2017-08-15 2017-08-15 [facility] GENERAL, [facility] General [id number] [facility] 13:15:00 13:15:00 t; SERVICE [facility] [place] [place] [facility] Phys[facility] ans 2017-08-08 2017-08-08 [facility] GENER[facility], [facility] UTP [id number] [facility] 13:00:00 13:00:00 t; [facility] [place] [place] [facility] ans Results Test Description Test Time Test Comments Results Result Comments Source Tobacco Use Screening 2017-08-08 19:00:00 Test Item Value Reference Range Interpretation Comme nts Completed (test code = Completed) DONE [facility]
[2020-06-18 23:17] LABS: Absolute Lymphocytes (CBC) 1.9 K/uL (0.7-4.9); Basophils % 0.5 % (0-1.3); Hematocrit 41.8 % (36.0-45.0); Lymphocytes % 9.9 % (15.3-44.8); MPV 7.9 fL (7.6-11.3); RBC Red Blood Cell Count 4.69 M/uL (3.86-4.86)
[2020-06-18 23:36] LABS: ALT/SGPT 36 U/L (12-78); AST/SGOT 15 U/L (15-37); Albumin 3.2 g/dL (3.4-5.0); Alkaline Phosphatase 75 U/L (45-117); BUN Blood Urea Nitrogen 7 mg/dL (7-18); Bicarbonate 26 mmol/L (21-32); Bilirubin Direct 0.4 mg/dL (0-0.2); Bilirubin Total 1.2 mg/dL (0.2-1.0); Glucose Level 143 mg/dL (74-106); Lipase 52 U/L (73-393); Potassium 3.2 mmol/L (3.5-5.1); Protein, Total 7.7 g/dL (6.4-8.2); Sodium Level 137 mmol/L (136-145)
[2020-06-18] MEDS ORDERED: ONDANSETRON 4 MG/2 ML VIAL ONE (23:40)
[2020-06-18] MEDS ORDERED: MORPHINE 4 MG/ML SYR ONE (23:40)
[2020-06-18] MEDS ORDERED: NA CHLORIDE 0.9% 1,000 ML ONE (23:41)
[2020-06-19] MEDS ORDERED: MORPHINE 4 MG/ML SYR ONE (01:30)
--- NOTE | 2020-06-19 01:42 | ER ---
Nurse's Notes [facility] Name: Varsha Salvador Age: 40 yrs Sex: Female : 1980 Arrival Date: 06/18/2020 Time: 22:03 Bed 8 Private MD: Diagnosis: Acute Appendicitis Presentation: 06/18 22:12 Acuity: KEDAR 3 sg 22:12 Chief complaint: Patient states: Right side abdominal pain and right sided pelvic pain, sg pt reports having vaginal bleeding as well, bleeding that is spotty at this time. Coronavirus screen: Client denies travel out of the [place] in the last 14 days. At this time, the client does not indicate any symptoms associated with coronavirus-19. Ebola Screen: Patient negative for fever greater than or equal to 101.5 degrees Fahrenheit, and additional compatible Ebola Virus Disease symptoms Patient denies exposure to infectious person. Patient denies travel to an Ebola-affected area in the 21 days before illness onset. No symptoms or risks identified at this time. Initial Sepsis Screen: Does the patient meet any 2 criteria? No. Patient's initial sepsis screen is negative. Does the patient have a suspected source of infection? No. Patient's initial sepsis screen is negative. Risk Assessment: Do you want to hurt yourself or someone else? Patient reports no desire to harm self or others. Onset of symptoms was June 18, 2020. Care prior to arrival: None. Transition of care: patient was not received from another setting of care. 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 - Social history:: Smoking status: Patient denies any tobacco usage or history of. Screenin/28 22:45 Abuse screen: Denies threats or abuse. Nutritional screening: No deficits noted. ll2 Tuberculosis screening: No symptoms or risk factors identified. Fall Risk None identified. Assessment: 22:45 General: Appears in no apparent distress. Behavior is calm, cooperative, appropriate ll2 for age. Pain: Complains of pain in right lower quadrant. Neuro: Level of Consciousness is awake, alert, obeys commands, Oriented to person, place, time, situation. Cardiovascular: Patient's skin is warm and dry. Respiratory: Airway is patent Respiratory effort is even, unlabored, Respiratory pattern is regular, symmetrical. GI: Bowel sounds present X 4 quads. Abd is soft Abdomen is tender to palpation in right lower quadrant. : No signs and/or symptoms were reported regarding the genitourinary system. EENT: No signs and/or symptoms were reported regarding the EENT system. Derm: Skin is intact, is healthy with good turgor, Skin is dry, Skin is pink, warm \T\ dry. Musculoskeletal: Circulation, motion, and sensation intact. Range of motion: intact in all extremities. 23:50 Reassessment: Patient and/or family updated on plan of care and expected duration. Pain ll2 level reassessed. Patient is alert, oriented x 3, equal unlabored respirations, skin warm/dry/pink. 06/19 00:50 Reassessment: Patient and/or family updated on plan of care and expected duration. Pain ll2 level reassessed. Patient is alert, oriented x 3, equal unlabored respirations, skin warm/dry/pink. 01:55 Reassessment: Patient and/or family updated on plan of care and expected duration. Pain ll2 level reassessed. Patient is alert, oriented x 3, equal unlabored respirations, skin warm/dry/pink. 02:19 Reassessment: tried to give report to receiving note, told i would be called back ll2 shortly. 02:44 Reassessment: REPORT GIVEN TO GISELLE TARANGO. ll2 Vital Signs: 06/18 22:12 BP 126 / 72; Pulse 80; Resp 18; Temp 97.2; Pulse Ox 98% on R/A; Pain 8/10; sg 23:05 BP 125 / 72; Pulse 77; Resp 16; Pulse Ox 96% on R/A; ll2 23:09 BP 125 / 72; Pulse 81; Resp 18; Pulse Ox 97% on R/A; ea 06/19 00:00 BP 124 / 63; Pulse 77; Resp 18; Pulse Ox 97% on R/A; ll2 00:57 BP 125 / 56; Pulse 82; Resp 17; Pulse Ox 95% on R/A; ll2 02:00 BP 122 / 62; Pulse 80; Resp 18; Pulse Ox 95% on R/A; ll2 ED Course: 06/18 22:03 Patient arrived in ED. bp1 22:12 Triage completed. sg 22:12 Arm band placed on. sg 22:25 Patient has correct armband on for positive identification. Call light in reach. Side ll2 rails up X 1. Pulse ox on. NIBP on. Warm blanket given. 22:39 Gerhard Dotson MD is Attending Physician. 7 23:09 Inserted saline lock: 20 gauge in right antecubital area, using aseptic technique. ea Blood collected. 23:17 Morena Figueroa, GISELLE is Primary Nurse. ea 06/19 01:10 CT Abd/Pelvis - IV Contrast Only In Process Unspecified. EDMS 01:41 Adryan Shepherd MD is Hospitalizing Provider. [facility] 02:57 No provider procedures requiring assistance completed. Patient admitted, IV remains in ll2 place. Administered Medications: 06/18 23:30 Drug: NS 0.9% 1000 ml Route: IV; Rate: 1000 ml; Site: right antecubital; ll2 06/19 00:35 Follow up: Response: No adverse reaction; IV Status: Completed infusion; IV Intake: ll2 1000ml 06/18 23:30 Drug: morphine 4 mg Route: IVP; Site: right antecubital; ll2 06/19 00:30 Follow up: Response: No adverse reaction; RASS: Alert and Calm (0) ll2 06/18 23:30 Drug: Zofran (Ondansetron) 4 mg Route: IVP; Site: right antecubital; ll2 06/19 00:30 Follow up: Response: No adverse reaction ll2 01:26 Drug: morphine 4 mg Route: IVP; Site: right antecubital; ll2 02:43 Follow up: Response: No adverse reaction; RASS: Alert and Calm (0) ll2 01:50 Drug: Zosyn 3.375 grams Route: IVPB; Infused Over: 60 mins; Site: right antecubital; ll2 02:55 Follow up: Response: No adverse reaction; IV Status: Completed infusion ll2 Intake: 00:35 IV: 1000ml; Total: 1000ml. 2 Outcome: 01:42 Decision to Hospitalize by Provider. 7 03:14 Patient left the ED. ea 03:15 Admitted to Med/surg accompanied by tech, via stretcher, Report called to giselle [email or web address] 03:15 Condition: stable 03:15 Instructed on the need for admit. Signatures: Dispatcher [employer] EDJi Veliz RN RN sg Antunez, Elena, RN RN ea Linscombe, Lacie, RN RN ll2 Ilda Pryor Maurice, MD MD 7 Corrections: (The following items were deleted from the chart) 02:06/18 22:47 Allergies: adhesive tape-silicones; [email or web address] 06/19 02:58 06/18 22:47 Allergies: Latex, Natural Rubber; [email or web address] 06/19 02:58 06/18 22:47 PMHx: Diabetes - NIDDM; [email or web address] 06/19 02:58 06/18 22:47 PMHx: Hypertension; [email or web address] 06/19 02:58 06/18 22:47 PSHx: Cholecystectomy; [facility]
--- NOTE | 2020-06-19 01:42 | EDPHYS ---
Physician Documentation [facility] Name: Varsha Salvador Age: 40 yrs Sex: Female : 1980 Arrival Date: 06/18/2020 Time: 22:03 Bed 8 Private MD: REBEKA Physician Gerhard Dotson HPI: 06/18 23:01 This 40 yrs old Female presents to ER via Wheelchair with complaints of mh7 Abdominal Pain, Vaginal Bleeding. 23:02 The patient presents with abdominal pain right lower quadrant. Onset: The mh7 symptoms/episode began/occurred 3 day(s) ago. The symptoms do not radiate. Associated signs and symptoms: Pertinent positives: nausea, vaginal bleeding, Pertinent negatives: anorexia, blood in stools, chest pain, constipation, diarrhea, dysuria, fever, headache, hematuria, palpitations, shortness of breath, vaginal discharge, vomiting, vomiting blood. The symptoms are described as intermittent, vague, waxing/waning. Modifying factors: The symptoms are alleviated by nothing, the symptoms are aggravated by movement. Severity of pain: At its worst the pain was moderate yesterday, in the emergency department the pain is unchanged. INSOLE DOUBLER: 06/19 00:25 LMP N/A - Irregular menses ll2 Historical: - Allergies: 02:58 adhesive tape-silicones; ll2 02:58 Latex, Natural Rubber; ll2 - PMHx: 02:58 Diabetes - NIDDM; Hypertension; ll2 - PSHx: 02:58 Cholecystectomy; ll2 - Immunization history:: Adult Immunizations up to date. - Social history:: Smoking status: Patient denies any tobacco usage or history of. ROS: 06/18 23:02 Constitutional: Negative for fever, chills, and weight loss, Eyes: Negative for injury, mh7 pain, redness, and discharge, ENT: Negative for injury, pain, and discharge, Neck: Negative for injury, pain, and swelling, Cardiovascular: Negative for chest pain, palpitations, and edema, Respiratory: Negative for shortness of breath, cough, wheezing, and pleuritic chest pain, Back: Negative for injury and pain, MS/Extremity: Negative for injury and deformity, Skin: Negative for injury, rash, and discoloration, Neuro: Negative for headache, weakness, numbness, tingling, and seizure, Psych: Negative for depression, anxiety, suicide ideation, homicidal ideation, and hallucinations, Allergy/Immunology: Negative for hives, rash, and allergies, Endocrine: Negative for neck swelling, polydipsia, polyuria, polyphagia, and marked weight changes, Hematologic/Lymphatic: Negative for swollen nodes, abnormal bleeding, and unusual bruising. Exam: 23:02 Constitutional: This is a well developed, well nourished patient who is awake, alert, mh7 and in no acute distress. Head/Face: Normocephalic, atraumatic. Eyes: Pupils equal round and reactive to light, extra-ocular motions intact. Lids and lashes normal. Conjunctiva and sclera are non-icteric and not injected. Cornea within normal limits. Periorbital areas with no swelling, redness, or edema. Neck: Trachea midline, no thyromegaly or masses palpated, and no cervical lymphadenopathy. Supple, full range of motion without nuchal rigidity, or vertebral point tenderness. No Meningismus. Chest/axilla: Normal chest wall appearance and motion. Nontender with no deformity. No lesions are appreciated. Cardiovascular: Regular rate and rhythm with a normal S1 and S2. No gallops, murmurs, or rubs. Normal PMI, no JVD. No pulse deficits. Respiratory: Lungs have equal breath sounds bilaterally, clear to auscultation and percussion. No rales, rhonchi or wheezes noted. No increased work of breathing, no retractions or nasal flaring. 23:02 Back: No spinal tenderness. No costovertebral tenderness. Full range of motion. Skin: Warm, dry with normal turgor. Normal color with no rashes, no lesions, and no evidence of cellulitis. MS/ Extremity: Pulses equal, no cyanosis. Neurovascular intact. Full, normal range of motion. Neuro: Awake and alert, GCS 15, oriented to person, place, time, and situation. Cranial nerves II-XII grossly intact. Motor strength 5/5 in all extremities. Sensory grossly intact. Cerebellar exam normal. Normal gait. Psych: Awake, alert, with orientation to person, place and time. Behavior, mood, and affect are within normal limits. 23:02 Abdomen/GI: Inspection: obese Bowel sounds: normal, in all quadrants, Palpation: moderate abdominal tenderness, in the right lower quadrant, Rectal exam: the exam is deferred, because of patient request, Indicators: McBurney's point is not tender, Hightower's sign is negative, Rovsing's sign is negative, Obturator sign is negative, Psoas sign is negative, Liver: no appreciated palpable abnormalities, Hernia: not appreciated. Vital Signs: 22:12 BP 126 / 72; Pulse 80; Resp 18; Temp 97.2; Pulse Ox 98% on R/A; Pain 8/10; sg 23:05 BP 125 / 72; Pulse 77; Resp 16; Pulse Ox 96% on R/A; ll2 23:09 BP 125 / 72; Pulse 81; Resp 18; Pulse Ox 97% on R/A; ea 06/19 00:00 BP 124 / 63; Pulse 77; Resp 18; Pulse Ox 97% on R/A; ll2 00:57 BP 125 / 56; Pulse 82; Resp 17; Pulse Ox 95% on R/A; ll2 02:00 BP 122 / 62; Pulse 80; Resp 18; Pulse Ox 95% on R/A; ll2 MDM: 01:38 Differential diagnosis: appendicitis, bowel obstruction, diverticulitis, non-specific mh7 abd pain, urinary tract infection. Data reviewed: vital signs, nurses notes, lab test result(s), CBC, electrolytes, urinalysis, radiologic studies, CT scan. Data interpreted: Pulse oximetry: on room air is 97 %. Interpretation: normal. Counseling: I had a detailed discussion with the patient and/or guardian regarding: the historical points, exam findings, and any diagnostic results supporting the discharge/admit diagnosis, lab results, radiology results, the need for further work-up and treatment in the hospital. Response to treatment: the patient's symptoms have markedly improved after treatment. Physician consultation: Adryan Shepherd MD regarding patient's condition, and will see patient in inpatient room. 01:42 Patient medically screened. [facility] 06/18 22:55 Order name: Basic Metabolic Panel; Complete Time: 00:35 [facility] 06/18 22:55 Order name: CBC with Diff; Complete Time: 00:35 [facility] 06/18 22:55 Order name: Hepatic Function; Complete Time: 00:35 [facility] 06/18 22:55 Order name: Lipase; Complete Time: 00:35 [facility] 06/19 01:19 Order name: Urine Dipstick--Ancillary (enter results) 06/19 01:19 Order name: Urine --Ancillary (enter results) 06/18 22:55 Order name: CT Abd/Pelvis - IV Contrast Only [facility] 06/19 01:54 Order name: CONS Pharmacy Consult [facility] 06/19 01:54 Order name: NPO [facility] 06/18 22:55 Order name: IV Saline Lock; Complete Time: 23:05 [facility] 06/18 22:55 Order name: Labs collected and sent; Complete Time: 23:05 [facility] 06/18 22:55 Order name: Urine Dipstick-Ancillary (obtain specimen); Complete Time: 01:18 [facility] 06/18 22:55 Order name: Urine Test (obtain specimen); Complete Time: :18 [facility] Administered Medications: 06/18 23:30 Drug: NS 0.9% 1000 ml Route: IV; Rate: 1000 ml; Site: right antecubital; 2 06/19 00:35 Follow up: Response: No adverse reaction; IV Status: Completed infusion; IV Intake: ll2 1000ml 06/18 23:30 Drug: morphine 4 mg Route: IVP; Site: right antecubital; 2 06/19 00:30 Follow up: Response: No adverse reaction; RASS: Alert and Calm (0) [facility] 06/18 23:30 Drug: Zofran (Ondansetron) 4 mg Route: IVP; Site: right antecubital; 2 06/19 00:30 Follow up: Response: No adverse reaction 2 01:26 Drug: morphine 4 mg Route: IVP; Site: right antecubital; 2 02:43 Follow up: Response: No adverse reaction; RASS: Alert and Calm (0) 2 01:50 Drug: Zosyn 3.375 grams Route: IVPB; Infused Over: 60 mins; Site: right antecubital; 2 02:55 Follow up: Response: No adverse reaction; IV Status: Completed infusion 2 Disposition: 06/19/20 01:42 Hospitalization ordered by Adryan Shepherd for Inpatient Admission. Preliminary diagnosis is Acute Appendicitis. - Bed requested for Telemetry/MedSurg (Inpatient). - Status is Inpatient Admission. ea - Condition is Stable. - Problem is new. - Symptoms have improved. Signatures: Dispatcher [employer] EDAL Ji Edge, RN RN sg Mary Yap, RN RN Morena Figueroa RN RN Abiola Goetz RN RN [facility] eGrhard Dotson MD MD 7 Corrections: (The following items were deleted from the chart) 02:00 01:42 Hospitalization Ordered by Adryan Shepherd MD for Inpatient Admission. Preliminary cg diagnosis is Acute Appendicitis. Bed requested for Telemetry/MedSurg (Inpatient). Status is Inpatient Admission. Condition is Stable. Problem is new. Symptoms have improved. [facility] 02:58 06/18 22:47 Allergies: adhesive tape-silicones; [facility] 06/19 02:58 06/18 22:47 Allergies: Latex, Natural Rubber; [facility] 06/19 02:58 06/18 22:47 PMHx: Diabetes - NIDDM; [facility] 06/19 02:58 06/18 22:47 PMHx: Hypertension; [facility] 06/19 02:58 06/18 22:47 PSHx: Cholecystectomy; [facility] 06/19 03:14 02:00 06/19/2020 01:42 Hospitalization Ordered by Adryan Shepherd MD for Inpatient ea Admission. Preliminary diagnosis is Acute Appendicitis. Bed requested for Telemetry/MedSurg (Inpatient). Status is Inpatient Admission. Condition is Stable. Problem is new. Symptoms have improved. cg
[2020-06-19] MEDS ORDERED: ONDANSETRON 4 MG/2 ML VIAL IV PRN (01:51)
[2020-06-19] MEDS ORDERED: PIPER/TAZO/NS 3.375gm 3.375 GM/100 ML BAG ONE (01:56)
[2020-06-19 01:57] LABS: Urine Blood 3+ (NEG); Urine Glucose NEGATIVE (NEG); Urine Protein 2+ (NEG); Urine Specific Gravity 1.015 (1.005-1.030); Urine pH 6.5 (5.0-7.0)
[2020-06-19] MEDS: D5 0.45 NS 1,000 ML IV SCH ×2 (04:18→12:00)
[2020-06-19 04:24] VITALS: BMI 53.4
[2020-06-19] MEDS ORDERED: PIPER/TAZO/NS 3.375gm 3.375 GM/100 ML BAG IVPB SCH ×2 (06:00→09:00)
[2020-06-19] MEDS: HYDROMORPHONE HCL 1 MG/ML INJ IV PRN ×2 (06:25→10:09)
[2020-06-19] MEDS: INSULIN -REGULAR HUMAN 50 UNIT/0.5 ML ML SQ SCH ×3 (07:30→18:00)
--- NOTE | 2020-06-19 11:15 | HP ---
Date of Admission: 06/19/2020 Diagnosis: Acute appendicitis. History Of Present Illness: This is a case of a 40-year-old patient, who comes with abdominal pain, right lower quadrant pain for about 4 days in duration. She was trying to hold that at home down to she could not take it anymore this morning and she decided to come to the ER. She has experienced in the past like this. She had to have an emergent open cholecystectomy in the past due to gangrenous changes because she did not come on time and she stated that she was thinking there was nothing that is why she waited for 4 days. She has history of diabetes. She denies any dysuria, hematuria, hemat ochezia, or melena. Denies any recent traveling out of the country. Denies any family members sick at home. Last menstrual period, she says she has regular menses. Allergies: INCLUDE LATEX. Past Medical History: Diabetes, hypertension, morbid obesity. Past Surgical History: Emergent open cholecystectomy. Review of Systems: See H and P. 10 points otherwise unremarkable. Physical Examination: General: Patient is awake, alert. HEENT: Pupils anicteric. Neck: Supple. Chest: Clear. Abdomen: Soft and depressible. Right lower quadrant tenderness with guarding. The patient has a ri ght upper quadrant large incision from previous cholecystectomy. Breasts: Deferred. Pelvic: Deferred. Rectal: Deferred. Extremities: Good capillary refill. Neurologic: Cranial nerves 2 through 12 are grossly within normal limits. Laboratory Data: Blood work shows WBC count of 19 with hemoglobin of 14.3 and platelets of 274. Pot assium is 3.2, total bilirubin of 1.2, and lipase 52. UA is nitrite positive. Imaging Procedure: CT scan of the abdomen and pelvis, preliminary result since official result are n ot in the computer, shows a large appendix consistent with acute appendicitis. There is inflammation around the area including terminal ileum. Assessment: This is a female with multiple medical problems including diabetes, morbid obesity, hype rtension; now came with acute appendicitis. There is also inflammation around not only the appendix, but also the area of the terminal ileum. This is a new event. The patient had it 4 days ago, but s he has not been able to make it to the ER yet. The benefits, alternatives, and risks of laparoscopic possible open appendectomy fully explained which include, but not limited to infection, bleeding, da mage to adjacent structures, anesthesia complication, abscess, MO, and even . She also understa nds that this may not relieve the symptoms. She might need more than one surgical intervention. She understood. The OR was emergently notified. JOHNATHAN/TEO Voice ID: [id number]
[2020-06-19] MEDS ORDERED: NA CHLORIDE 0.9% 1,000 ML ONE (12:42)
[2020-06-19] MEDS ORDERED: SUCCINYLCHOLINE 20 MG/ML (10 ML) IV ONE (13:05)
[2020-06-19] MEDS ORDERED: GLYCOPYRROLATE 0.2 MG/ML SYR ONE (13:12)
[2020-06-19] MEDS ORDERED: MIDAZOLAM HCL 2 MG/2 ML INJ ONE (13:12)
[2020-06-19] MEDS ORDERED: ROCURONIUM 50 MG/5 ML VIAL IV ONE ×2 (13:12→13:55)
[2020-06-19] MEDS ORDERED: FENTANYL CITR 250 MCG/5 ML ONE (13:12)
[2020-06-19] MEDS ORDERED: NEOSTIGMINE 1 MG/ML -5 ML ONE (13:12)
[2020-06-19] MEDS ORDERED: propofoL 200 MG/20 ML VIAL IV ONE (13:12)
--- NOTE | 2020-06-19 13:14 | P.BOP ---
Preoperative diagnosis: acute appendicitis, UTI, diabetes, morbid obesity, htn Postoperative diagnosis: Perforated appendicitis with intrabdominnal abscess, colitis, enteritis, ad Primary procedure: Laparoscopic perforated appendectomy Secondary procedure: Drainage of intrabdominal abscess Estimated blood loss: <30cc Specimen: appendix, culture Anesthesia: General Complications: None Drain(s): DEZ drain (x 2) Transferred to: Recovery Room Condition: Fair
[2020-06-19] MEDS ORDERED: Ringers Lactate 1,000 ML IV ONE (14:52)
--- NOTE | 2020-06-19 15:00 | OP ---
Date of Procedure: 06/19/2020 Surgeon: Adryan Shepherd MD Preoperative Diagnoses: Acute appendicitis, urinary tract infection, diabetes, morbid obesity, hyper tension, peritonitis. Postoperative Diagnoses: Perforated appendicitis with intraabdominal abscess, colitis, enteritis, in traabdominal adhesions. Procedure: Laparoscopic perforated appendectomy with drainage of intraabdominal abscess. Specimens: Appendix and intraabdominal abscess culture. Anesthesia: General plus local. Drains: DEZ is #10 x2. Indications: This is the case of a female, who comes to us with acute abdominal pain. She has been having this for 4 days already. Fully explained the benefits, alternatives, and risks of laparoscopi c possible open appendectomy, which include, but not limited to infection, bleeding, damage to adjace nt structures, anesthesia complication, intraabdominal abscess, [place], and even . She also underst ands this may not relieve any symptoms. She might need more than one surgical intervention. She und erstood, signed a consent. The OR was emergently called. She was also fully explained the importanc e of diabetes control, the importance of also losing some weight. Procedure In Detail: The patient was brought to the operating room and placed in supine position. A nesthesia was done without complication. Abdominal area was prepped and draped in the usual sterile fashion. Marcaine 0.5% injected for local anesthetic followed by sharp incision of the skin in the i nfraumbilical region. Incision was carried down to fascia, which was opened under direct vision. Pe ritoneum was encountered, opened under direct vision. Vicryl #1 was placed inside the fascia. Hasso n trocar was carefully introduced. Pneumoperitoneum was obtained. I placed 2 more trocars, 5 mm eac h one of them in the suprapubic and left lower quadrant. This helped me to evaluate the area of the appendix. It shows a ruptured appendix with an intraabdominal abscess. The terminal ileum somehow _ area of the abscess trying to delineate the area. There was inflammation of the periappend iceal fat, inflammation of the terminal ileum. There was a fecalith that goes into the perforation. This was just midway in the appendix. Carefully, we were able to remove some adhesions of the area. The patient has history of open cholecystectomy with many adhesions in that region. After we finis hed lysis of adhesions, we were able to delineate the area nice and slow. The area was profusely irr igated. There was perforation with an intraabdominal abscess that was suctioned and cultured. We cr eated a window in the base of the appendix, transected that with Endo VANESA 45 mm 3.5 and the mesoappen serafin with Endo-VANESA 45 mm 2.5. Appendix was removed from abdominal cavity and fecalith using an EndoCa tch through the umbilical incision. The area was profusely irrigated with at least 9 L of saline unt il clear. Once we have the area irrigated, I believe due to the large amount of her abdomen, I put 2 DEZ drains to cover the pelvic area and the right lower quadrant exiting through the trocar sites and secured in place with 3-0 nylon. The area was inspected once again. No bile leak. No bleeding. A t that moment, I proceeded to remove the trocars under direct vision. Deflated pneumoperitoneum. Cl osed the fascia with #1 Vicryl. Irrigated subcutaneous tissue and closed that with 3-0 chromic and s taples. The DEZ drains were exiting through the trocar sites and secured in place with 3-0 nylon. Th e patient will remain on IV antibiotics. This patient is a diabetic, morbid obesity and with a high risk of recurrent abscess, so we are going to keep her on antibiotics for at least a week and follow clinically. We are going to ask the system of the hospitalist to help us control diabetes and hypert ension since the patient will be n.p.o. for several days. JOHNATHAN/TEO Voice ID: [id number] Report ID: [id number]
[2020-06-19] MEDS ORDERED: KETOROLAC 30 MG/ML INJ ONE (15:15)
--- NOTE | 2020-06-19 15:53 | RAD REPORT ---
EXAM DESCRIPTION: RAD - Chest Single View - 06/19/2020 3:43 pm CLINICAL HISTORY: R/O ATELECTISIS/ S/P LAP APPENDECTOMY COMPARISON: August 12 TECHNIQUE: AP portable chest image was obtained 06/19/2020 3:43 pm . FINDINGS: Lung volumes are low limiting assessment. Large body habitus further limits the examinatio n. Patient has hazy left base opacification is probably atelectasis rather than infiltrate or aspirat ion. No failure or volume overload. Trachea is midline. Heart and vasculature are normal. No measurab le pleural effusion and no pneumothorax. No acute bony abnormality seen. No acute aortic findings gregorio pected. IMPRESSION: Hazy opacification left base is probably atelectasis rather than aspiration or infiltrat e. Follow-up imaging with maximum inspiratory effort could be obtained if patient remains symptomatic.
[2020-06-19] MEDS: Levofloxacin 750mg IV 750 MG/150 ML BAG IV SCH (17:24)
[2020-06-19] MEDS: PIPER/TAZO/NS 3.375gm 3.375 GM/100 ML BAG IVPB SCH (17:25)
--- NOTE | 2020-06-19 17:34 | P.CNS ---
Date of Consult: 06/19/20 Reason for Consult: Medical management, hypertension, DM 2 Requesting Physician: Adryan Shepherd Primary Care Provider: Dr. Iglesias Chief Complaint: Abdominal pain History of Present Illness: 40-year-old female, PMH: Non insulin-dependent diabetes mellitus type 2, HTN, morbid obesity who presented to the ED with right lower quadrant abdominal pain for 4 days. She was found to have an appendicitis and underwent laparoscopic appendectomy with drain placement today. She was found to have a perforated appendicitis with intra-abdominal abscess, colitis, enteritis, abdominal adhesions. She reports no significant pain, but overall feels uncomfortable. She denies nausea/vomiting, shortness of breath, chest pain, dysuria. She has a dry mouth. She last took her medications the day prior to admission. Allergies adhesive tape Allergy (Verified 06/19/20 04:19) Hives/Rash Latex, Natural Rubber Allergy (Verified 06/19/20 04:19) Hives/Rash Home medications list reviewed: Yes Home Medications: Bisoprolol/Hydrochlorothiazide [Bisoprolol-Hctz 10-6.25 mg Tab] 1 tab PO BEDTIME 06/19/20 Loratadine [Claritin*] 10 mg PO BEDTIME 06/19/20 Metformin HCl [Glucophage] 1,000 mg PO BIDWM 06/19/20 - Past Medical/Surgical History Diabetic: Yes -: HTN -: Diabetes type 2 - non insulin dependent -: Chronic knee pain -: Cervical Biopsy -: open earl (emergent) - Family History Father Medical History: Hypertension, Lung disease, Diabetes, Cancer Notes: rectal cancer Mother Medical History: Heart disease, Hypertension, Lung disease, Diabetes, Blood disorders Brother History Unknown: Yes - Social History Smoking Status: Current every day smoker (1/2 ppd) Alcohol use: No CD- Drugs: No Caffeine use: Yes Place of Residence: Home Review of Systems 10-point ROS is otherwise unremarkable Physical Examination Temp Pulse Resp BP Pulse Ox 97.7 F 94 H 18 117/56 L 93 06/19/20 16:00 06/19/20 16:00 06/19/20 16:00 06/19/20 16:00 06/19/20 16:00 General: Alert, In no apparent distress (But appears uncomfortable), Oriented x3, Obese HEENT: EOMI, Sclerae nonicteric Neck: Supple Respiratory: Clear to auscultation bilaterally (With some slight shallow breathing) Cardiovascular: No edema, Regular rate/rhythm, Normal S1 S2, No murmurs Gastrointestinal: Soft and benign, Tenderness (Very mild diffuse tenderness, more around incision sites. DEZ drain in place, serosanguineous output) Musculoskeletal: No tenderness, Other (SCDs in place) Integumentary: No rashes Neurological: Normal speech, Normal affect Laboratory Data (last 24 hrs) 06/18/20 23:04: WBC 19.1 H, Hgb 14.3, Hct 41.8, Plt Count 274 06/18/20 23:04: Sodium 137, Potassium 3.2 L, BUN 7, Creatinine 0.67, Glucose 143 H, Total Bilirubin 1.2 H, AST 15, ALT 36, Alkaline Phosphatase 75, Lipase 52 L Physician Review Additional Text: Acute perforated appendicitis s/p laparoscopic appendectomy, DEZ drain placement DM 2, non insulin dependent HTN -the patient is currently NPO on IV Zosyn and Levaquin, will add NS 100ml/hr for now -encourage incentive spirometer -at bedside -pain appears to be controlled, continue current regimen per general surgery -hold home metformin while hospitalized, monitor glucose q.6 hr while NPO, low- dose sliding scale -hold home bisoprolol, patient with low normal blood pressure at this time, will continue to monitor and treat her blood pressure as needed. -will continue to follow VTE: SCDs Dispo: anticipate hospitalization for several more days Time Spent Managing Pts care (In Minutes): 55
[2020-06-19] MEDS: NA CHLORIDE 0.9% 1,000 ML IV SCH (18:00)
[2020-06-19] MEDS ORDERED: INSULIN -REGULAR HUMAN 50 UNIT/0.5 ML ML SQ SCH (21:00)
[2020-06-20] MEDS: PIPER/TAZO/NS 3.375gm 3.375 GM/100 ML BAG IVPB SCH ×5 (00:20→23:12)
[2020-06-20] MEDS: NA CHLORIDE 0.9% 1,000 ML IV SCH ×2 (05:03→14:00)
[2020-06-20] MEDS: INSULIN -REGULAR HUMAN 50 UNIT/0.5 ML ML SQ SCH ×5 (06:00→23:19)
[2020-06-20 06:03] LABS: Absolute Lymphocytes (CBC) 1.6 K/uL (0.7-4.9); Basophils % 0.2 % (0-1.3); Hematocrit 38.4 % (36.0-45.0); Lymphocytes % 10.7 % (15.3-44.8); MPV 7.9 fL (7.6-11.3); RBC Red Blood Cell Count 4.23 M/uL (3.86-4.86)
[2020-06-20 06:15] LABS: Albumin 2.2 g/dL (3.4-5.0); Bilirubin Total 2.3 mg/dL (0.2-1.0); Potassium 3.3 mmol/L (3.5-5.1); Protein, Total 6.3 g/dL (6.4-8.2)
[2020-06-20] MEDS: HYDROCODONE/APAP 5/325 MG TAB PO PRN ×2 (06:20→11:15)
--- NOTE | 2020-06-20 08:31 | P.PN ---
Subjective Date of Service: 06/20/20 Primary Care Provider: Dr. Iglesias Chief Complaint: Abdominal pain Subjective: Improving (pain improving, denies nausea/vomiting, voided without issue overnight. reports getting hungry. mouth is dry denies SOB/chest pain no acute events overnight) Review of Systems 10-point ROS is otherwise unremarkable Physical Examination - Vital Signs Temperature: 97.8 F Blood Pressure: 125/60 Pulse: 98 Respirations: 17 Pulse Ox (%): 94 - Physical Exam General: Alert, In no apparent distress, Oriented x3, Obese HEENT: Sclerae nonicteric Respiratory: Clear to auscultation bilaterally, Diminished (at bases bilaterally; on 2L NC) Cardiovascular: No edema, Regular rate/rhythm (HR: 80-90s) Gastrointestinal: Soft and benign, Other (DEZ drains in place, serosanguineous output), Tenderness (mild at incision sites) Neurological: Normal speech, Normal affect Assessment & Plan Physician Review Additional Text: Acute perforated appendicitis s/p laparoscopic appendectomy, DEZ drain placement DM 2, non insulin dependent HTN -seems to be doing well -the patient is currently NPO on IV Zosyn and Levaquin, and IVF; diet per general surgery -on 2L NC, likely due shallow inspiration due to abd pain and body habitus, encouraged incentive spirometer -at bedside -CXR on 06/19 post-op with mild haziness suggestive of atelectasis -pain is controlled at this time, continue current regimen per general surgery -hold home metformin while hospitalized, monitor glucose q.6 hr while NPO, low- dose sliding scale -hold home bisoprolol, patient with low normal blood pressure at this time, will continue to monitor and treat her blood pressure as needed. -will continue to follow Time Spent Managing Pts Care (In Minutes): 30
[2020-06-20] MEDS: KCL 20 MEQ/100 mL IVPB 20 MEQ/100 ML BAG IV SCH ×2 (09:31→13:21)
--- NOTE | 2020-06-20 10:36 | RAD REPORT ---
EXAM DESCRIPTION: CT - Abdomen Pelvis W Contrast - 06/19/2020 4:01 am ADDENDUM #1 Urgent finding reported to Dr. Dotson at 06/19/2020 1:30 AM MORTGAGE UNDERWRITER Electronically signed by: Luca Sxeton 06/19/2020 4:05 AM MORTGAGE UNDERWRITER End of Addendum EXAM DESCRIPTION: CT ABDOMEN AND PELVIS WITH CONTRAST CLINICAL HISTORY: Right-sided abdominal pain with vaginal bleeding. COMPARISON: 12/25/2019 TECHNIQUE: CT of the abdomen and pelvis performed following IV administration of iodinated contras t. FINDINGS: Lung Bases: The visualized lung bases are clear. Bones: Mild endplate spondylosis. Abdomen: Liver: Hepatomegaly diffusely decreased density. Common bile duct stent. Gallbladder: Prior cholecystectomy. Spleen, Pancreas, and Adrenal Glands: Unable lipid rich left adrenal adenoma measuring 1.7 cm. No f ollow-up recommended. The spleen, pancreas, and right adrenal gland are unremarkable.. Kidneys: No hydronephrosis or obstructing calculus. Vasculature: The aorta and IVC have normal caliber and position. The portal vein is patent. The pro ximal visceral and renal arteries are patent. Stomach: The stomach and duodenum have normal course. Other: No free intraperitoneal air. No free fluid or lymphadenopathy. Pelvis: Bladder: Urinary bladder is unremarkable. Bowel: No dilated loops of large or small bowel. Mild wall thickening of the terminal ileum is like ly reactive. Appendix: The appendix is dilated measuring 2.1 cm without significant periappendiceal inflammatory change. Appendicolith. No well circumscribed periappendiceal fluid collection. Pelvis: Uterus is not enlarged. IMPRESSION: 1. Findings compatible with acute appendicitis. 2. Hepatomegaly with hepatic steatosis. This exam was performed according to our departmental dose-optimization program, which includes autom ated exposure control, adjustment of the mA and/or kV according to patient size and/or use of iterati ve reconstruction technique. Electronically signed by: Luca Sexton 06/19/2020 1:21 AM MORTGAGE UNDERWRITER Due to temporary technical issues with the PACS/Fluency reporting system, reports are being signed by the in house radiologist without review as a courtesy to ensure prompt reporting. The interpreting r adiologist is fully responsible for the content of the report.
--- NOTE | 2020-06-20 12:37 | PN ---
Date of Progress Note: 06/20/2020 Reason For Service: Perforated appendicitis with intraabdominal abscess, diabetes, morbid obesity, a nd UTI. Subjective: This the case of a 40-year-old patient, who received an emergent surgery, found to have intraabdominal abscess, perforated appendix, surgically addressed. The patient now is doing better. No shortness of breath. No chest pain. Physical Examination: Chest: Clear. Abdomen: Soft and depressible. DEZ drains clear. Extremities: No calf tenderness. Laboratory Data: Blood work shows sodium is 141 and glucose of 149. WBC count of 15.3. Plan: We are going to give the antibiotics for at least 7 days intravenously. No diet today. We ma y start clear tomorrow. We encouraged incentive spirometry, ambulation. We are going to consult [facility] for ambulation help. Also, we are going to consult Infectious Disease for guidance on the antibiotics. HM/MODL Voice ID: [id number] Report ID: [id number]
[2020-06-20] MEDS: ACETAMINOPHEN 500 MG TAB PO PRN (17:02)
[2020-06-20] MEDS: Levofloxacin 750mg IV 750 MG/150 ML BAG IV SCH (17:11)
[2020-06-21] MEDS: ACETAMINOPHEN 500 MG TAB PO PRN ×2 (02:36→14:07)
[2020-06-21 04:03] LABS: Absolute Lymphocytes (CBC) 1.4 K/uL (0.7-4.9); Basophils % 0.2 % (0-1.3); Hematocrit 38.5 % (36.0-45.0); Lymphocytes % 7.1 % (15.3-44.8); MPV 8.4 fL (7.6-11.3); RBC Red Blood Cell Count 4.24 M/uL (3.86-4.86)
[2020-06-21 04:21] LABS: ALT/SGPT 29 U/L (12-78); AST/SGOT 12 U/L (15-37); Albumin 2.1 g/dL (3.4-5.0); Alkaline Phosphatase 96 U/L (45-117); BUN Blood Urea Nitrogen 8 mg/dL (7-18); Bicarbonate 25 mmol/L (21-32); Bilirubin Total 1.3 mg/dL (0.2-1.0); Glucose Level 141 mg/dL (74-106); Sodium Level 141 mmol/L (136-145)
[2020-06-21 04:39] LABS: Blood Morphology Comment NOT SEEN (NOT SEEN); Platelet Estimate ADEQ
[2020-06-21] MEDS: NA CHLORIDE 0.9% 1,000 ML IV SCH ×3 (05:08→20:53)
[2020-06-21] MEDS: PIPER/TAZO/NS 3.375gm 3.375 GM/100 ML BAG IVPB SCH ×3 (05:08→19:02)
[2020-06-21] MEDS: INSULIN -REGULAR HUMAN 50 UNIT/0.5 ML ML SQ SCH ×4 (06:00→20:54)
[2020-06-21] MEDS: KCL 20 MEQ/100 mL IVPB 20 MEQ/100 ML BAG IV SCH ×2 (06:59→08:00)
[2020-06-21] MEDS ORDERED: D50W 25 GM/50 ML SYRINGE IV PRN (12:02)
[2020-06-21] MEDS ORDERED: GLUCAGON 1 MG/VIAL IM PRN (12:02)
--- NOTE | 2020-06-21 12:03 | P.PN ---
Subjective Date of Service: 06/21/20 Primary Care Provider: Dr. Iglesias Chief Complaint: Abdominal pain Patient feels she is clinically improving. She reports less pain and denies shortness of breath. She states she was able to ambulate to the bathroom today. She has been afebrile. Physical Examination - Vital Signs Temperature: 97.8 F Blood Pressure: 138/71 Pulse: 111 Respirations: 18 Pulse Ox (%): 96 - Physical Exam General: Alert, In no apparent distress, Obese HEENT: Mucous membr. moist/pink Neck: JVD not distended Respiratory: Clear to auscultation bilaterally, Diminished Cardiovascular: No edema, Normal S1 S2, Other (Tachycardia) Gastrointestinal: Normal bowel sounds, Non-distended, Other ([address]) Musculoskeletal: No swelling, No tenderness Integumentary: No rashes Neurological: Other (Nonfocal) Assessment And Plan - Current Problems (Diagnosis) (1) Acute perforated appendicitis Current Visit: Yes Status: Acute (2) Morbid obesity Current Visit: Yes Status: Acute (3) DM type 2 (diabetes mellitus, type 2) Current Visit: Yes Status: Acute - Plan Patient continued to have significant leukocytosis. Continue IV Levaquin and Zosyn. Infectious disease consult per primary team. Incentive spirometry. Increase activity as tolerated Diet per Primary team. Insulin sliding scale for glucose management. Physician Review Additional Text: Acute perforated appendicitis s/p laparoscopic appendectomy, DEZ drain placement DM 2, non insulin dependent HTN -seems to be doing well -the patient is currently NPO on IV Zosyn and Levaquin, and IVF; diet per general surgery -on 2L NC, likely due shallow inspiration due to abd pain and body habitus, encouraged incentive spirometer -at bedside -CXR on 06/19 post-op with mild haziness suggestive of atelectasis -pain is controlled at this time, continue current regimen per general surgery -hold home metformin while hospitalized, monitor glucose q.6 hr while NPO, low- dose sliding scale -hold home bisoprolol, patient with low normal blood pressure at this time, will continue to monitor and treat her blood pressure as needed. -will continue to follow
--- NOTE | 2020-06-21 12:59 | PN ---
Date of Progress Note: 06/21/2020 Diagnoses: Ruptured appendix with intraabdominal abscess, diabetes, morbid obesity. Subjective: The patient awake, alert. No distress. No shortness of breath. No chest pain. No fev er. Objective: Chest: Clear. Abdomen: Soft and depressible. Extremities: No calf tenderness. Laboratory Data: Blood work shows 19 first day, 15.3 second day, today once again back to 19. Plate let count 337. Glucose 14. Plan: We expect the patient to be at least 7 days of antibiotics and we have a high chance of recurr ence of abscess in the abdomen, that is why she has 2 DEZ drains. There is an IV antibiotic. We are going to request the help from the Infectious Disease doctor to help us determine a little bit better the proper antibiotics and length. We will also encourage her incentive spirometry, ambulation, glu cose control. Appreciate medical doctor helping us in that. JOHNATHAN/TEO Voice ID: [id number] Report ID: [id number]
[2020-06-21] MEDS ORDERED: POTASSIUM CL SA 10 MEQ TAB PO ONE (13:19)
[2020-06-21] MEDS: Levofloxacin 750mg IV 750 MG/150 ML BAG IV SCH (14:06)
[2020-06-21] MEDS ORDERED: POTASSIUM 25 MEQ EFFERV TAB PO ONE (21:00)
[2020-06-21] MEDS: ONDANSETRON 4 MG/2 ML VIAL IV PRN (21:03)
[2020-06-22] MEDS: PIPER/TAZO/NS 3.375gm 3.375 GM/100 ML BAG IVPB SCH ×5 (00:44→23:42)
[2020-06-22 04:18] LABS: Absolute Lymphocytes (CBC) 1.6 K/uL (0.7-4.9); Basophils % 0.5 % (0-1.3); Hematocrit 37.7 % (36.0-45.0); Lymphocytes % 7.1 % (15.3-44.8); MPV 7.9 fL (7.6-11.3); RBC Red Blood Cell Count 4.17 M/uL (3.86-4.86)
[2020-06-22 04:41] LABS: BUN Blood Urea Nitrogen 7 mg/dL (7-18); Bicarbonate 26 mmol/L (21-32); Glucose Level 154 mg/dL (74-106); Potassium 3.6 mmol/L (3.5-5.1); Sodium Level 144 mmol/L (136-145)
[2020-06-22 05:26] LABS: Blood Morphology Comment NOT SEEN (NOT SEEN); Platelet Estimate ADEQ
[2020-06-22] MEDS: NA CHLORIDE 0.9% 1,000 ML IV SCH ×2 (06:16→15:55)
[2020-06-22] MEDS: INSULIN -REGULAR HUMAN 50 UNIT/0.5 ML ML SQ SCH ×4 (07:30→21:00)
[2020-06-22] MEDS ORDERED: POTASSIUM 25 MEQ EFFERV TAB PO ONE (09:00)
--- NOTE | 2020-06-22 11:53 | PN ---
Subjective: The patient is a 40-year-old female. I was consulted for perforated appendicitis. The patient, according to the surgical team, came in after 4 days of having lower abdominal pain, right-s ided lower abdominal pain, and on evaluation was found to have perforated appendix on the CT scan don e on 06/18, which showed compatible with acute appendicitis and hepatomegaly with hepatic steatosis a nd the patient was taken to the operating table, laparoscopic surgery was performed, and was found to have a large amount of pus in the abdomen. The patient also has significant history of hypertension and diabetes mellitus. She also had gallbladder rupture in 2018. Past Medical History: As per HPI, morbid obesity. Past Surgical History: Cholecystectomy and appendectomy. Social History: Tobacco positive since age 16. The patient is trying to quit smoking. Medications: The patient is currently being treated with Levaquin and Zosyn. Allergies: ADHESIVE TAPES, LATEX, AND NATURAL RUBBER. Review of Systems: A 10-point review was performed. Physical Examination: General: This is a 40-year-old female, lying in bed, not in any acute cardiopulmonary distress. Vital Signs: Temperature 97.8, pulse 84, respirations 20, blood pressure 126/59. Abdomen: Positive finding on examination shows the patient has 2 DEZ drains in her lower abdomen, lef t peripheral line, also has surgical wounds with heath in place. No discharge noted at this time; otherwise, no other finding in the examination except morbid obesity. [place] Data: [place] [address], hemoglobin 12.8, platelets are 365. Chemistry shows sodium 144, pota ssium 3.6, chloride 113, bicarb 26, BUN 7, creatinine 0.6 glucose is 154. Micro data showing E coli and Pseudomonas aeruginosa sensitive to quinolones and Zosyn. Sensitivity is 16. Assessment And Plan: A 40-year-old female with status post appendix rupture. Also, has significant history of diabetes mellitus and morbid obesity, and previous gallbladder rupture, coming in with per forated appendix. We will recommend to discontinue Zosyn as the patient has higher RASHAWN. We will rec ommend to continue Levaquin and add Flagyl. We will follow the patient closely. Repeat CT if leukoc ytosis does not improve. We will follow the patient closely. Thank you Dr. Shepherd for consult. Continue current wound care. NF/MODL Voice ID: [id number] Report ID: [id number]
--- NOTE | 2020-06-22 12:13 | P.PN ---
Subjective Date of Service: 06/22/20 Primary Care Provider: Dr. Iglesias Chief Complaint: Abdominal pain Patient states she has increased her activity level. She has been ambulating to and from bathroom. She denies pain. She has been afebrile. Physical Examination - Vital Signs Temperature: 97.8 F Blood Pressure: 126/59 Pulse: 84 Respirations: 20 Pulse Ox (%): 96 - Physical Exam General: Alert, In no apparent distress, Obese Respiratory: Clear to auscultation bilaterally, Normal air movement Cardiovascular: No edema, Regular rate/rhythm, Normal S1 S2 Gastrointestinal: Normal bowel sounds, Soft and benign, Non-distended, Other (2 DEZ drains.) Musculoskeletal: No swelling, No tenderness Integumentary: No rashes, No erythema Neurological: Other (Nonfocal) Assessment And Plan - Current Problems (Diagnosis) (1) Acute perforated appendicitis Current Visit: Yes Status: Acute (2) Morbid obesity Current Visit: Yes Status: Acute (3) DM type 2 (diabetes mellitus, type 2) Current Visit: Yes Status: Acute - Plan Leukocytosis trended up today. Peritoneal fluid culture is growing E. coli and Pseudomonas. All organisms sensitive to Levaquin and Zosyn Continue IV Levaquin and Zosyn. Infectious disease consulted for antibiotic guidance. Incentive spirometry. Increase activity as tolerated Diet per Primary team. Insulin sliding scale for glucose management.
[2020-06-22] MEDS: Levofloxacin 750mg IV 750 MG/150 ML BAG IV SCH (15:22)
[2020-06-22] MEDS ORDERED: MAGNES/ALUMIN/SIMET 30ML UCUP PO PRN (17:07)
[2020-06-22] MEDS: ONDANSETRON 4 MG/2 ML VIAL IV PRN (19:30)
[2020-06-22] MEDS: FAMOTIDINE 20 MG TAB PO SCH (21:22)
[2020-06-23] MEDS: NA CHLORIDE 0.9% 1,000 ML IV SCH ×3 (01:14→22:00)
[2020-06-23] MEDS: PIPER/TAZO/NS 3.375gm 3.375 GM/100 ML BAG IVPB SCH (05:04)
[2020-06-23] MEDS: ONDANSETRON 4 MG/2 ML VIAL IV PRN ×3 (05:04→22:55)
[2020-06-23 06:16] LABS: Absolute Lymphocytes (CBC) 1.6 K/uL (0.7-4.9); Basophils % 0.7 % (0-1.3); Hematocrit 38.5 % (36.0-45.0); RBC Red Blood Cell Count 4.19 M/uL (3.86-4.86)
[2020-06-23 06:31] LABS: BUN Blood Urea Nitrogen 7 mg/dL (7-18); Bicarbonate 27 mmol/L (21-32); Glucose Level 152 mg/dL (74-106); Potassium 3.6 mmol/L (3.5-5.1); Sodium Level 143 mmol/L (136-145)
[2020-06-23] MEDS: INSULIN -REGULAR HUMAN 50 UNIT/0.5 ML ML SQ SCH ×4 (07:30→21:00)
[2020-06-23] MEDS ORDERED: POTASSIUM CL SA 10 MEQ TAB PO ONE (09:00)
[2020-06-23] MEDS: FAMOTIDINE 20 MG TAB PO SCH ×2 (10:07→21:00)
[2020-06-23] MEDS: METRONIDAZOLE 500mg IVPB 500 MG/100 ML BAG IV SCH ×2 (12:22→17:54)
--- NOTE | 2020-06-23 12:49 | PN ---
Date of Progress Note: 06/23/2020 Diagnoses: Morbid obesity, perforated appendicitis, intraabdominal abscess, diabetes. Review of Systems: No shortness of breath. No chest pain. No fever. Decreased appetite. Physical Examination: General: The patient is awake and alert. Chest: Clear. Abdomen: Soft and depressible. Intact surgical site. DEZ drain serosanguineous. Extremities: No calf tenderness. Laboratory Data: WBC count is improving. She still not tolerating diet. Appreciate Dr. Marr's re commendations. WBC count came from 23 down to 16.2. Plan: We are going to adopt recommendation from Infectious Disease and change antibiotics. The cult ures were reviewed with the patient and sensitivities. Incentive spirometry, ambulation, DVT, GI pro phylaxis. We are going to advance diet to at least full liquid diet. HM/MODL Voice ID: [id number] Report ID: [id number]
--- NOTE | 2020-06-23 13:10 | P.PN ---
Subjective Date of Service: 06/23/20 Primary Care Provider: Dr. Iglesias Chief Complaint: Abdominal pain Patient complaining of nausea. She was started on IV Flagyl yesterday. Her nausea could be related to side effect. She denies any abdominal pain. She is tolerating liquid diet and having regular bowel movement. She has been ambulating to and from bathroom. She has been afebrile. Physical Examination - Vital Signs Temperature: 97.2 F Blood Pressure: 134/68 Pulse: 71 Respirations: 20 Pulse Ox (%): 98 - Physical Exam General: Alert, In no apparent distress, Obese Neck: Supple Respiratory: Clear to auscultation bilaterally, Normal air movement Cardiovascular: No edema, Regular rate/rhythm, Normal S1 S2 Gastrointestinal: Normal bowel sounds, Soft and benign, No tenderness Musculoskeletal: No swelling, No tenderness Integumentary: No rashes Assessment And Plan - Current Problems (Diagnosis) (1) Acute perforated appendicitis Current Visit: Yes Status: Acute (2) Morbid obesity Current Visit: Yes Status: Acute (3) DM type 2 (diabetes mellitus, type 2) Current Visit: Yes Status: Acute - Plan Leukocytosis is now improving. Peritoneal fluid culture is growing E. coli and Pseudomonas. All organisms sensitive to Levaquin and Zosyn Infectious disease input appreciated. Antibiotics changed to Levaquin and Flagyl. Antiemetics p.r.n. for nausea Incentive spirometry. Increase activity as tolerated Diet per Primary team. Insulin sliding scale for glucose management.
[2020-06-23] MEDS: Levofloxacin 750mg IV 750 MG/150 ML BAG IV SCH (14:42)
--- NOTE | 2020-06-23 16:46 | PN ---
Subjective: The patient is lying in bed. No new complaints. Able to eat slightly better, but still not hungry enough. Objective: Vital Signs: Temperature 97.2, pulse 71, respirations 20, blood pressure 134/68. No new changes in examination. Drainage is getting less. Laboratory Data: WBC 16,000 down from 23,000, hemoglobin 12.8, platelets are 405. Chemistry shows s odium 143, potassium 3.6, chloride 110, bicarb 27, BUN 7, creatinine 0.6, glucose is 152. Cultures f rom peritoneal cavity show E coli, Pseudomonas and Enterococcus. The patient is currently being dylan elkin with Levaquin and Flagyl. Assessment And Plan: Status post appendix rupture as appendix perforation and sepsis. The patient i s continuing to improve. Leukocytosis is improving slowly. Continue antibiotic and supportive care. Total course will be close to 4 weeks. We will follow the patient as needed. NF/MODL Voice ID: [id number] Report ID: [id number]
[2020-06-23] MEDS: HYDROCODONE/APAP 5/325 MG TAB PO PRN (22:53)
[2020-06-24] MEDS: METRONIDAZOLE 500mg IVPB 500 MG/100 ML BAG IV SCH ×4 (00:35→17:15)
[2020-06-24] MEDS: NA CHLORIDE 0.9% 1,000 ML IV SCH ×5 (04:16→22:37)
[2020-06-24 05:55] LABS: Absolute Lymphocytes (CBC) 1.8 K/uL (0.7-4.9); Basophils % 0.7 % (0-1.3); Hematocrit 37.7 % (36.0-45.0); Lymphocytes % 11.1 % (15.3-44.8); MPV 7.8 fL (7.6-11.3); RBC Red Blood Cell Count 4.18 M/uL (3.86-4.86)
[2020-06-24 06:07] LABS: BUN Blood Urea Nitrogen 5 mg/dL (7-18); Bicarbonate 28 mmol/L (21-32); Glucose Level 126 mg/dL (74-106); Potassium 3.2 mmol/L (3.5-5.1); Sodium Level 140 mmol/L (136-145)
[2020-06-24] MEDS ORDERED: POTASSIUM CL SA 10 MEQ TAB PO ONE ×2 (06:17→15:00)
[2020-06-24] MEDS: INSULIN -REGULAR HUMAN 50 UNIT/0.5 ML ML SQ SCH ×4 (07:30→20:58)
[2020-06-24] MEDS: FAMOTIDINE 20 MG TAB PO SCH ×2 (08:21→20:05)
--- NOTE | 2020-06-24 12:42 | P.PN ---
Subjective Date of Service: 06/24/20 Primary Care Provider: Dr. Iglesias Chief Complaint: Abdominal pain Patient reports intermittent nausea which responds well to IV Zofran. She is tolerating full liquid diet and having regular bowel movement. She has been ambulating. Physical Examination - Vital Signs Temperature: 96.9 F Blood Pressure: 135/62 Pulse: 88 Respirations: 18 Pulse Ox (%): 96 - Physical Exam Respiratory: Clear to auscultation bilaterally, Normal air movement Cardiovascular: No edema, Regular rate/rhythm, Normal S1 S2 Gastrointestinal: Normal bowel sounds, Soft and benign, Other (DEZ drains in place.) Musculoskeletal: No swelling, No tenderness Integumentary: No rashes Neurological: Other (Nonfocal) Assessment And Plan - Current Problems (Diagnosis) (1) Acute perforated appendicitis Current Visit: Yes Status: Acute (2) Morbid obesity Current Visit: Yes Status: Acute (3) DM type 2 (diabetes mellitus, type 2) Current Visit: Yes Status: Acute - Plan Continue current antibiotics Infectious disease is following Antiemetics p.r.n. for nausea Incentive spirometry. Increase activity as tolerated Diet per Primary team. Insulin sliding scale for glucose management.
[2020-06-24 13:19] LABS: BUN Blood Urea Nitrogen 4 mg/dL (7-18); Bicarbonate 28 mmol/L (21-32); Glucose Level 163 mg/dL (74-106); Magnesium 1.9 mg/dL (1.8-2.4); Potassium 3.8 mmol/L (3.5-5.1); Sodium Level 140 mmol/L (136-145)
[2020-06-24] MEDS: ONDANSETRON 4 MG/2 ML VIAL IV PRN ×2 (13:23→20:05)
[2020-06-24] MEDS: Levofloxacin 750mg IV 750 MG/150 ML BAG IV SCH (14:21)
[2020-06-24] MEDS: HYDROCODONE/APAP 5/325 MG TAB PO PRN (22:36)
[2020-06-25] MEDS: METRONIDAZOLE 500mg IVPB 500 MG/100 ML BAG IV SCH ×5 (00:46→23:56)
[2020-06-25] MEDS: HYDROCODONE/APAP 5/325 MG TAB PO PRN ×2 (02:37→21:04)
[2020-06-25] MEDS: NA CHLORIDE 0.9% 1,000 ML IV SCH ×3 (04:00→21:05)
[2020-06-25 05:38] LABS: Absolute Lymphocytes (CBC) 1.7 K/uL (0.7-4.9); Basophils % 0.4 % (0-1.3); Lymphocytes % 9.1 % (15.3-44.8); MPV 7.8 fL (7.6-11.3); RBC Red Blood Cell Count 3.86 M/uL (3.86-4.86)
[2020-06-25 06:04] LABS: BUN Blood Urea Nitrogen 4 mg/dL (7-18); Bicarbonate 26 mmol/L (21-32); Glucose Level 124 mg/dL (74-106); Potassium 3.4 mmol/L (3.5-5.1); Sodium Level 139 mmol/L (136-145)
[2020-06-25] MEDS ORDERED: POTASSIUM CL SA 10 MEQ TAB PO ONE ×3 (06:07→16:26)
[2020-06-25] MEDS: INSULIN -REGULAR HUMAN 50 UNIT/0.5 ML ML SQ SCH ×4 (07:30→20:57)
[2020-06-25] MEDS: FAMOTIDINE 20 MG TAB PO SCH ×2 (08:04→20:56)
[2020-06-25 09:01] LABS: Blood Morphology Comment NOT SEEN (NOT SEEN); Platelet Estimate ADEQ
--- NOTE | 2020-06-25 11:31 | P.PN ---
Subjective Date of Service: 06/25/20 Primary Care Provider: Dr. Iglesias Chief Complaint: Abdominal pain Patient complaining of dysuria and increased urinary frequency. She states the nausea is better. WBC count is trending up. She is tolerating full liquid diet. Physical Examination - Vital Signs Temperature: 97 F Blood Pressure: 117/65 Pulse: 82 Respirations: 16 Pulse Ox (%): 98 - Physical Exam General: In no apparent distress Respiratory: Clear to auscultation bilaterally, Normal air movement Cardiovascular: No edema, Regular rate/rhythm, Normal S1 S2 Gastrointestinal: Normal bowel sounds, Soft and benign, No tenderness Musculoskeletal: No swelling Integumentary: No rashes, No erythema Neurological: Other (Nonfocal) Assessment And Plan - Current Problems (Diagnosis) (1) Acute perforated appendicitis Current Visit: Yes Status: Acute (2) Morbid obesity Current Visit: Yes Status: Acute (3) DM type 2 (diabetes mellitus, type 2) Current Visit: Yes Status: Acute - Plan Continue current antibiotics Infectious disease is following. Patient is planned for 4 weeks of antibiotics. Check UA given urinary symptoms Antiemetics p.r.n. for nausea Incentive spirometry. Diet per Primary team. Insulin sliding scale for glucose management.
[2020-06-25] MEDS: Levofloxacin 750mg IV 750 MG/150 ML BAG IV SCH (14:00)
[2020-06-25 14:19] LABS: Urine Appearance CLEAR; Urine Bilirubin NEGATIVE (NEG); Urine Blood 2+ (NEG); Urine Color YELLOW; Urine Glucose NEGATIVE (NEG); Urine Protein NEGATIVE (NEG); Urine Urobilinogen 0.2 mg/dL (0.2-1.0); Urine pH 5.5 (5.0-7.0)
[2020-06-25] MEDS: ONDANSETRON 4 MG/2 ML VIAL IV PRN ×2 (14:46→20:56)
[2020-06-25 14:48] LABS: Urine Bacteria 20-50 /HPF (<20)
[2020-06-26] MEDS: HYDROCODONE/APAP 5/325 MG TAB PO PRN (04:06)
[2020-06-26] MEDS: ONDANSETRON 4 MG/2 ML VIAL IV PRN ×3 (04:12→17:14)
[2020-06-26] MEDS: METRONIDAZOLE 500mg IVPB 500 MG/100 ML BAG IV SCH ×4 (05:43→23:38)
[2020-06-26 06:22] LABS: Potassium 3.8 mmol/L (3.5-5.1)
[2020-06-26] MEDS: INSULIN -REGULAR HUMAN 50 UNIT/0.5 ML ML SQ SCH ×4 (07:30→21:00)
[2020-06-26] MEDS ORDERED: POTASSIUM CL SA 10 MEQ TAB PO ONE (09:00)
[2020-06-26] MEDS: FAMOTIDINE 20 MG TAB PO SCH ×2 (09:22→21:26)
[2020-06-26] MEDS: NA CHLORIDE 0.9% 1,000 ML IV SCH ×3 (11:20→21:33)
--- NOTE | 2020-06-26 13:39 | P.PN ---
Subjective Date of Service: 06/26/20 Primary Care Provider: Dr. Iglesias Chief Complaint: Abdominal pain Patient has no complain today. She stated the nausea has resolved. Urine culture is showing mixed growth. Physical Examination - Vital Signs Temperature: 97.1 F Blood Pressure: 147/73 Pulse: 80 Respirations: 16 Pulse Ox (%): 97 - Physical Exam General: Alert, In no apparent distress Respiratory: Clear to auscultation bilaterally, Normal air movement Cardiovascular: No edema, Regular rate/rhythm, Normal S1 S2 Gastrointestinal: Normal bowel sounds, Soft and benign Musculoskeletal: No swelling, No tenderness Integumentary: No rashes Assessment And Plan - Current Problems (Diagnosis) (1) Acute perforated appendicitis Current Visit: Yes Status: Acute (2) Morbid obesity Current Visit: Yes Status: Acute (3) DM type 2 (diabetes mellitus, type 2) Current Visit: Yes Status: Acute - Plan Continue current antibiotics Infectious disease is following. Patient is planned for 4 weeks of antibiotics. Antiemetics p.r.n. for nausea Incentive spirometry. Patient is tolerating soft diet. Monitor CBC. Insulin sliding scale for glucose management.
[2020-06-26] MEDS: Levofloxacin 750mg IV 750 MG/150 ML BAG IV SCH (15:48)
[2020-06-27] MEDS: METRONIDAZOLE 500mg IVPB 500 MG/100 ML BAG IV SCH ×3 (05:30→17:46)
[2020-06-27] MEDS: ONDANSETRON 4 MG/2 ML VIAL IV PRN ×2 (05:35→14:19)
[2020-06-27] MEDS: NA CHLORIDE 0.9% 1,000 ML IV SCH ×2 (06:00→12:10)
[2020-06-27 06:53] LABS: Absolute Lymphocytes (CBC) 1.7 K/uL (0.7-4.9); Basophils % 0.6 % (0-1.3); Lymphocytes % 10.6 % (15.3-44.8); RBC Red Blood Cell Count 3.66 M/uL (3.86-4.86)
[2020-06-27] MEDS: INSULIN -REGULAR HUMAN 50 UNIT/0.5 ML ML SQ SCH ×4 (07:30→21:00)
--- NOTE | 2020-06-27 10:31 | RAD REPORT ---
EXAM DESCRIPTION: Chest Single View CLINICAL HISTORY: 40-year-old female with PICC line placement. TECHNIQUE: Single view, AP portable chest was obtained. COMPARISON: None. FINDINGS: Prominent cardiac and mediastinal silhouette. Heart size is mildly prominent, however may be exaggerated by low lung volumes and portable technique. Lungs are clear without focal opacity, pneumothorax or pleural effusions. Right-sided PICC line tip terminates at the SVC RIGHT atrial junction. The visualized bones are within normal limits. IMPRESSION: 1. No acute cardiopulmonary abnormalities. 2.Right-sided PICC line tip terminates at the SVC RIGHT atrial junction. Electronically signed by: Leigh Ann Lee MD 06/26/2020 12:20 AM AD SETTER Due to temporary technical issues with the PACS/Fluency reporting system, reports are being signed by the in house radiologist without review as a courtesy to ensure prompt reporting. The interpreting r adiologist is fully responsible for the content of the report.
[2020-06-27] MEDS: FAMOTIDINE 20 MG TAB PO SCH ×2 (10:41→22:53)
--- NOTE | 2020-06-27 12:45 | P.PN ---
Subjective Date of Service: 06/27/20 Primary Care Provider: Dr. Iglesias Chief Complaint: Abdominal pain Patient has no complain today. She is desiring to go home. Physical Examination - Vital Signs Temperature: 97.4 F Blood Pressure: 172/75 Pulse: 72 Respirations: 20 Pulse Ox (%): 96 - Physical Exam General: In no apparent distress Respiratory: Clear to auscultation bilaterally, Normal air movement Cardiovascular: No edema, Regular rate/rhythm, Normal S1 S2 Gastrointestinal: Normal bowel sounds, Soft and benign, No tenderness Integumentary: No rashes Assessment And Plan - Current Problems (Diagnosis) (1) Acute perforated appendicitis Current Visit: Yes Status: Acute (2) Morbid obesity Current Visit: Yes Status: Acute (3) DM type 2 (diabetes mellitus, type 2) Current Visit: Yes Status: Acute - Plan Continue current antibiotics Infectious disease is following. Patient is planned for 4 weeks of antibiotics. Incentive spirometry. Patient is tolerating soft diet. Monitor CBC. Insulin sliding scale for glucose management. PICC line placed for prolonged antibiotic therapy.
--- NOTE | 2020-06-27 13:47 | P.PN ---
Subjective Date of Service: 06/25/20 Primary Care Provider: Dr. Iglesias Chief Complaint: ruptured perforated appendicitis with intrabdominal abscess Subjective: Improving Review of Systems General: Fever (no) Respiratory: Shortness of Breath (no) Gastrointestinal: Nausea (no), Vomiting (no), Distention Physical Examination - Vital Signs Temperature: 97.4 F Blood Pressure: 172/75 Pulse: 72 Respirations: 20 Pulse Ox (%): 96 - Physical Exam General: Alert, Oriented x3, Cooperative HEENT: PERRLA, EOMI Gastrointestinal: Hypoactive, Soft and benign, Other (chayito serosanguineous) Musculoskeletal: No erythema, No tenderness, No warmth Assessment And Plan - Plan iv abx for 2 weeks then PO oob IS Physician Review Additional Text: Acute perforated appendicitis s/p laparoscopic appendectomy, CHAYITO drain placement DM 2, non insulin dependent HTN
--- NOTE | 2020-06-27 13:51 | P.PN ---
Subjective Date of Service: 06/26/20 Primary Care Provider: Dr. Iglesias Chief Complaint: ruptured perforated appendicitis with intrabdominal abscess, Subjective: Tolerating diet, Other (+ flatus) Review of Systems General: Fever (no) Respiratory: Shortness of Breath (no) Cardiovascular: Chest Pain (no) Gastrointestinal: Distention Genitourinary: Dysuria (no) Physical Examination - Vital Signs Temperature: 97.4 F Blood Pressure: 172/75 Pulse: 72 Respirations: 20 Pulse Ox (%): 96 - Physical Exam General: Alert, In no apparent distress, Oriented x3 HEENT: PERRLA Neck: Supple Gastrointestinal: Hypoactive, Other (DEZ clEAR) Integumentary: No rashes, No breakdown, No erythema, No warmth, No cyanosis Neurological: Normal speech Assessment And Plan - Plan iv abx for 2 weeks then PO PER Dr Jennifer BOURGEOIS IS regional transportation manager for outpatient I abx options Plan to discharge in: Greater than 2 days
--- NOTE | 2020-06-27 13:55 | P.PN ---
Subjective Date of Service: 06/27/20 Primary Care Provider: Dr. Iglesias Chief Complaint: ruptured perforated appendicitis with intrabdominal abscess, Subjective: No new changes, Tolerating diet, Ambulating, Improving Review of Systems General: Weakness Respiratory: Shortness of Breath (no) Gastrointestinal: No Distention Genitourinary: Unremarkable Physical Examination - Vital Signs Temperature: 97.4 F Blood Pressure: 172/75 Pulse: 72 Respirations: 20 Pulse Ox (%): 96 - Physical Exam General: Alert, In no apparent distress, Oriented x3, Cooperative HEENT: PERRLA, EOMI Neck: Supple Cardiovascular: No edema Gastrointestinal: Hypoactive, Soft and benign Musculoskeletal: No swelling, No erythema, No tenderness, No warmth Integumentary: No rashes, No breakdown, No erythema, No warmth, No cyanosis Neurological: Normal speech - Studies wbc 16 Assessment And Plan - Plan iv abx for one more weeks then PO PER Dr Jennifer BOURGEOIS IS senior product marketing manager for outpatient I abx options
[2020-06-27] MEDS: HYDROCODONE/APAP 5/325 MG TAB PO PRN ×3 (14:20→22:54)
[2020-06-27] MEDS: Levofloxacin 750mg IV 750 MG/150 ML BAG IV SCH (14:27)
--- NOTE | 2020-06-27 18:44 | PN ---
Subjective: The patient is lying in bed. No new acute event. Objective: Vital Signs: Temperature 97, pulse 70, respirations 18, blood pressure 172/75. Lungs: Basal crackles. Heart: S1, S2. Regular. Abdomen: Soft. Bowel sounds present. DEZ drain in place. Laboratory Data: Peritoneal fluid culture; E coli, Pseudomonas, Enterococcus faecalis. Currently, t he patient is on antibiotic including Levaquin and Flagyl. Assessment And Plan: Status post appendix perforation. The patient continued to have persistent justo kocytosis. We will recommend to add vancomycin, continue Levaquin and Flagyl. We will follow the pa tiesemaj closely. Consider switching Levaquin and Flagyl to Zosyn. NF/MODL Voice ID: [id number] Report ID: [id number]
[2020-06-28] MEDS: METRONIDAZOLE 500mg IVPB 500 MG/100 ML BAG IV SCH ×5 (00:03→23:59)
[2020-06-28] MEDS: NA CHLORIDE 0.9% 1,000 ML IV SCH ×2 (00:03→02:00)
[2020-06-28] MEDS: INSULIN -REGULAR HUMAN 50 UNIT/0.5 ML ML SQ SCH ×4 (07:30→21:00)
--- NOTE | 2020-06-28 09:14 | RAD REPORT ---
EXAM DESCRIPTION: RAD - Abdomen 1 View (KUB) - 06/28/2020 8:58 am CLINICAL HISTORY: Abdomen pain. FINDINGS: Biliary stent in place. 2 radiopaque structures within the right pelvis measuring approximately 18 and 14 centimeters presuma itzel represent drains and should be correlated clinically. If the patient does not have drain so then this could indicate retained surgical material within the pelvis. Several loops of small bowel are mildly dilated. Air is also present within the colon. This probably represents an ileus. Early partial small bowel obstruction can have this appearance and if the patien t's symptoms do not resolve then a followup abdominal plain film series would be recommend
[2020-06-28] MEDS: FAMOTIDINE 20 MG TAB PO SCH ×2 (09:22→21:21)
[2020-06-28] MEDS: ONDANSETRON 4 MG/2 ML VIAL IV PRN (09:23)
--- NOTE | 2020-06-28 11:17 | PN ---
Date of Progress Note: 06/28/2020 Diagnoses: Intraabdominal abscess, diabetes, morbid obesity, rupture appendix. Subjective: This is case of a 40-year-old patient received emergent surgery for ruptured appendix an d drainage of intraabdominal abscess. The patient is doing better. We are compliant with the ID rec ommendations of 2 weeks of antibiotics and patient prefer to be in the hospital, not at home. Althou gh, we did refer the case to counter caser for options. She denies any shortness of breath, any chest pain, any fever. Objective: Chest: Clear. Abdomen: Soft and depressible. Extremities: No Homans signs. Laboratory Data: The blood work today is still pending. Plan: Plan will be to check CBC tomorrow. We going to complete the antibiotics, should be finished by this next Saturday and then she will be in antibiotics by mouth. JOHNATHAN/TEO Voice ID: [id number] Report ID: [id number]
[2020-06-28] MEDS: Levofloxacin 750mg IV 750 MG/150 ML BAG IV SCH (14:12)
[2020-06-28] MEDS: HYDROCODONE/APAP 5/325 MG TAB PO PRN (14:43)
--- NOTE | 2020-06-28 15:02 | P.PN ---
Subjective Date of Service: 06/28/20 Primary Care Provider: Dr. Iglesias Chief Complaint: ruptured perforated appendicitis with intrabdominal abscess, Subjective: Other (overall feeling about the same, does reports some left flank pain over past 2-3 days, too painful to even walk at times. Also reports no BM/flatus in ~2-3 days as well. denies nausea/vomiting) Review of Systems 10-point ROS is otherwise unremarkable Physical Examination - Vital Signs Temperature: 97.3 F Blood Pressure: 139/69 Pulse: 73 Respirations: 20 Pulse Ox (%): 96 - Physical Exam General: Alert, In no apparent distress, Obese HEENT: Sclerae nonicteric Respiratory: Clear to auscultation bilaterally Cardiovascular: Regular rate/rhythm Gastrointestinal: Soft and benign, No tenderness Neurological: Normal speech, Normal affect Assessment & Plan Physician Review Additional Text: Acute perforated appendicitis s/p laparoscopic appendectomy, DEZ drainx2 placement DM 2, non insulin dependent HTN morbid obesity continue levaquin & flagyl, ID following - recommends 4 weeks of antibiotics and addition of vancomycin for persistent leukocytosis - will discuss and clarify plan today dc IVF, has been tolerating diet, but now with 2-3 days of L flank pain, no flatus/BM in a few days as well, will obtain KUB to eval for post-op ileus / SBo PICC line was placed for prolonged Abx therapy encouraged patient to ambulate, continue IS pain seems to be well controlled continue DEZ Drains per surgery dispo: SNF vs home - pending final Abx recommendations Time Spent Managing Pts Care (In Minutes): 35
[2020-06-29] MEDS: METRONIDAZOLE 500mg IVPB 500 MG/100 ML BAG IV SCH ×2 (05:50→11:57)
[2020-06-29] MEDS: INSULIN -REGULAR HUMAN 50 UNIT/0.5 ML ML SQ SCH ×4 (07:30→21:00)
[2020-06-29] MEDS: FAMOTIDINE 20 MG TAB PO SCH ×2 (08:26→21:23)
[2020-06-29 10:24] LABS: Basophils % 0.8 % (0-1.3); Hematocrit 33.4 % (36.0-45.0); Lymphocytes % 15.5 % (15.3-44.8); MPV 8.2 fL (7.6-11.3); RBC Red Blood Cell Count 3.69 M/uL (3.86-4.86)
[2020-06-29] MEDS: ONDANSETRON 4 MG/2 ML VIAL IV PRN (13:47)
[2020-06-29] MEDS: Levofloxacin 750mg IV 750 MG/150 ML BAG IV SCH (13:47)
[2020-06-29] MEDS: metroNIDAZOLE 500 MG TABLET PO SCH ×2 (17:16→23:46)
--- NOTE | 2020-06-29 17:39 | P.PN ---
Subjective Date of Service: 06/29/20 Primary Care Provider: Dr. Iglesias Chief Complaint: ruptured perforated appendicitis with intrabdominal abscess, Subjective: Improving (reports BMx2 this morning, has been walking around the nursing station, passing flatus, left flank pain is minimal now) Review of Systems 10-point ROS is otherwise unremarkable Physical Examination - Vital Signs Temperature: 97.1 F Blood Pressure: 165/78 Pulse: 75 Respirations: 17 Pulse Ox (%): 97 - Physical Exam General: Alert, In no apparent distress, Obese HEENT: Sclerae nonicteric Respiratory: Clear to auscultation bilaterally Cardiovascular: Regular rate/rhythm Gastrointestinal: Soft and benign, Non-distended, No tenderness, Other (DEZ drains in place) Neurological: Normal speech, Normal affect Assessment & Plan Physician Review Additional Text: Acute perforated appendicitis s/p laparoscopic appendectomy, DEZ drainx2 placement Postoperative ileus DM 2, non insulin dependent HTN morbid obesity continue levaquin & flagyl, ID following - recommends 4 weeks of antibiotics, leukocytosis improving, recommended can switch to p.o. Levaquin and Flagyl if tolerating diet not having diarrhea - recommends monitoring for at least 24 hr prior to discharge to ensure patient tolerates. Now with bowel movements this morning, since postoperative ileus is resolved, discuss with general surgery, advance diet to full liquids PICC line was placed for prolonged Abx therapy, me not needed to be able to tolerate p.o. encouraged patient to ambulate, continue IS pain seems to be well controlled continue DEZ Drains per surgery dispo: Possible home in 48hrs, pt will start PO levaquin in AM, received IV today, recommended to ensure tolerating PO for at least 24 hrs Time Spent Managing Pts Care (In Minutes): 35
--- NOTE | 2020-06-29 18:02 | PN ---
Subjective: Patient is sitting in easy chair, not in any acute distress. Objective: Vital Signs: Reviewed. Temperature 97.3, pulse 70, respirations 14, blood pressure 153/ 80. Lungs: Clear to auscultation. Heart: S1, S2. Regular. Abdomen: Soft. Bowel sounds present. DEZ drains in place. Laboratory Data: Shows WBC 12.9, hemoglobin 11.1, platelets are 466. Chemistry; no new chemistry av ailable today. Micro data shows E coli, Pseudomonas, and Enterococcus faecalis, peritoneal fluid cul tures. Currently, patient is on Levaquin and Flagyl. Assessment And Plan: Status post appendix rupture. Patient is improving slowly. Leukocytosis is im proving. Continue Levaquin and Flagyl as patient is not able to have bowel movement, can be switched to oral. Continue to monitor CBC and BMP while the patient is on antibiotic for total of 4 weeks. We will follow the patient as needed. NF/MODL Voice ID: [id number] Report ID: [id number]
[2020-06-29] MEDS ORDERED: HCTZ PO SCH (21:00)
[2020-06-29] MEDS ORDERED: BISOPROLOL PO SCH (21:00)
[2020-06-30 00:32] VITALS: O2SAT 96
[2020-06-30] MEDS: metroNIDAZOLE 500 MG TABLET PO SCH ×3 (05:56→18:00)
[2020-06-30] MEDS: INSULIN -REGULAR HUMAN 50 UNIT/0.5 ML ML SQ SCH ×3 (07:30→16:28)
[2020-06-30 08:21] LABS: Basophils % 0.8 % (0-1.3); Hematocrit 34.2 % (36.0-45.0); Lymphocytes % 17.7 % (15.3-44.8); RBC Red Blood Cell Count 3.82 M/uL (3.86-4.86)
[2020-06-30 08:34] LABS: Magnesium 2.1 mg/dL (1.8-2.4); Potassium 3.7 mmol/L (3.5-5.1)
[2020-06-30] MEDS ORDERED: levoFLOXacin 750 MG TAB PO SCH (09:00)
[2020-06-30] MEDS: FAMOTIDINE 20 MG TAB PO SCH (09:31)
[2020-06-30 16:24] VITALS: BP 139/61; TEMP 96.4
--- NOTE | 2020-06-30 16:36 | P.DS ---
Admission Date: 06/19/20 Discharge Date: 06/30/20 Primary Care Provider: Dr. Iglesias Discharge Condition: GOOD Reason for Admission: ruptured perforated appendicitis with intrabdominal abscess, UTI - Problems (1) Acute perforated appendicitis Current Visit: Yes Status: Acute (2) DM type 2 (diabetes mellitus, type 2) Current Visit: Yes Status: Acute Qualifiers: Diabetes mellitus complication status: with other specified complication Hospital Course: unremarkable Vital Signs/Physical Exam: Temp Pulse Resp BP Pulse Ox 96.4 F L 65 18 139/61 97 06/30/20 16:00 06/30/20 16:00 06/30/20 16:00 06/30/20 16:00 06/30/20 16:00 General: Alert, In no apparent distress, Oriented x3, Cooperative HEENT: Normocephalic, PERRLA Neck: Supple Respiratory: Normal air movement Cardiovascular: No edema, Normal pulses Gastrointestinal: Normal bowel sounds, Soft and benign, Other (DEZ clear. One DEZ removed another one will stay for outpatient removal) Musculoskeletal: No erythema, No tenderness, No warmth, Other (PICC line intact) Neurological: Normal gait, Normal speech Rectal: Deferred Laboratory Data at Discharge: WBC 11.0 K/uL (4.3-10.9) H D 06/30/20 07:48 Hgb 11.6 g/dL (12.0-15.0) L 06/30/20 07:48 Hct 34.2 % (36.0-45.0) L 06/30/20 07:48 Plt Count 501 K/uL (152-406) H 06/30/20 07:48 Sodium 141 mmol/L (136-145) 06/30/20 07:48 Potassium 3.7 mmol/L (3.5-5.1) 06/30/20 07:48 BUN 6 mg/dL (7-18) L 06/30/20 07:48 Creatinine 0.85 mg/dL (0.55-1.3) 06/30/20 07:48 Glucose 117 mg/dL (74-106) H 06/30/20 07:48 Phosphorus 4.1 mg/dL (2.5-4.9) 06/25/20 05:23 Magnesium 2.1 mg/dL (1.8-2.4) 06/30/20 07:48 Total Bilirubin 1.3 mg/dL (0.2-1.0) H 06/21/20 03:29 AST 12 U/L (15-37) L 06/21/20 03:29 ALT 29 U/L (12-78) 06/21/20 03:29 Alkaline Phosphatase 96 U/L (45-117) 06/21/20 03:29 Lipase 52 U/L (73-393) L 06/18/20 23:04 Home Medications: Bisoprolol/Hydrochlorothiazide [Bisoprolol-Hctz 10-6.25 mg Tab] 1 tab PO BEDTIME 06/19/20 Loratadine [Claritin*] 10 mg PO BEDTIME 06/19/20 Metformin HCl [Glucophage] 1,000 mg PO BIDWM 06/19/20 Codeine/APAP [Tylenol W/Codeine #3 tab] 1 tab PO Q6HP PRN #30 tab 06/30/20 levoFLOXacin [Levaquin*] 750 mg PO DAILY 18 Days #18 tab 06/30/20 metroNIDAZOLE [Flagyl*] 500 mg PO Q6HR 18 Days #72 tablet 06/30/20 New Medications: metroNIDAZOLE [Flagyl*] 500 mg PO Q6HR 18 Days #72 tablet levoFLOXacin [Levaquin*] 750 mg PO DAILY 18 Days #18 tab Codeine/APAP [Tylenol W/Codeine #3 tab] 1 tab PO Q6HP PRN #30 tab PRN Reason: Pain Patient Discharge Instructions: Pt advised the importance of compliance with Dr Jennifer dao reccomendation. DEZ care Followup: Faisal Treviño MD [Primary Care Provider] - 1-2 Weeks (mart ) Adryan Shepherd MD [ACTIVE - CAN ADMIT] - 07/04/20
--- NOTE | 2020-06-30 17:02 | OP ---
Date of Procedure: 06/30/2020 Surgeon: Adryan Shepherd MD Preoperative Diagnoses: Acute cholecystitis, intractable right upper quadrant abdominal pain, sympto matic cholelithiasis, obesity. Postoperative Diagnoses: Acute cholecystitis, intractable right upper quadrant abdominal pain, sympt omatic cholelithiasis, obesity plus acute suppurative cholecystitis. Procedure: Laparoscopic cholecystectomy. Anesthesia: General plus local. Drains: DEZ #10. Finding: Acute suppurative cholecystitis. Indications For Procedure: This is the case of a 40-year-old patient, who comes to us with intractab le abdominal pain few hours ago. She was booked for surgery for tomorrow electively. She went to th e ER last Saturday, but the pain got worse overnight and she was admitted in the last few hours emergen tly. The benefits, alternatives, and risks laparoscopic possible open cholecystectomy were fully exp lained which include, but not limited to infection, bleeding, damage to adjacent structures, anesthes ia complication, choledocholithiasis, bile leak, pancreatitis, VT, and even . She also understa nds this may not relieve the symptoms. She might need more than one surgical intervention. She unde rstood and signed the consent. Procedure In Detail: The patient was brought to the operating room and placed in supine position. A nesthesia was done without complication. Abdominal area was prepped and draped in sterile fashion. Marcaine 0.5% was injected for local anesthetic followed by sharp incision of the skin in the infraum bilical region. The incision was carried down to fascia, which was opened under direct vision. Zulema toneum was encountered and opened under direct vision. Vicryl #1 placed inside the fascia. Juan Carlos t rocar was carefully introduced. Pneumoperitoneum was obtained. I placed 3 more trocars, 5 mm each o ne of them in the right upper quadrant under direct visualization. At that moment, I proceeded to vi sualize the area and showed an inflamed thick gallbladder distended, so we introduced an Endo needle and aspirated the area and showed solid component. This area was sent for culture. Needle was remov ed. A grasper was placed in the fundus of the gallbladder, another grasper in the infundibulum retra cting the gallbladder in the inferolateral fashion exposing the triangle of Calot and obtaining criti howie view of safety. Cystic duct and cystic artery were clearly isolated free circumferentially and a connection between those and the gallbladder was clearly identified. I proceeded to ligate those by using at least 3 clips proximal, 1 clip distal, ligation in middle. Same was done with the cystic a rtery. A small little branch of the cystic artery was also ligated using same technique. Hepatic ar teries and common bile duct were protected at all times. After that, I proceeded to remove the gallb ladder from liver using Bovie cauterizer and removed from abdominal cavity using EndoCatch through th e umbilical incision. To remove the gallbladder from the umbilical incision, we have to extend the i ncisions and the stone was so big and the gallbladder was so big that incision have to be extended. We introduced the cameras once again and obtained pneumoperitoneum. Irrigated the area until clean. The area showed an inflammation and showed suppurative gallbladder. So, I proceeded to leave a DEZ d rain in that area exiting through one of the trocar site and secured in place with 2-0 nylon. After assuring a complete hemostasis, then we proceeded to remove the trocars under direct vision, deflated pneumoperitoneum, closed the fascia with #1 Vicryl. Extra stitches have to put in the fascia and um bilical area since we have to extend the incision to remove the gallbladder. The skin was approximat ed with heath after closing the subcutaneous tissue with 3-0 chromic. The patient tolerated the pr ocedure well. The patient sent to recovery in stable condition. JOHNATHAN/TEO Voice ID: [id number] Report ID: [id number]
--- NOTE | 2020-06-30 20:48 | P.PN ---
Subjective Date of Service: 06/30/20 Primary Care Provider: Dr. Iglesias Chief Complaint: ruptured perforated appendicitis with intrabdominal abscess, UTI Subjective: Improving (passing flatus, +BM, no pain, tolerating diet) Review of Systems 10-point ROS is otherwise unremarkable Physical Examination - Vital Signs Temperature: 96.4 F Blood Pressure: 139/61 Pulse: 65 Respirations: 18 Pulse Ox (%): 97 - Physical Exam General: Alert, In no apparent distress HEENT: Mucous membr. moist/pink, Sclerae nonicteric Respiratory: Clear to auscultation bilaterally Cardiovascular: No edema, Regular rate/rhythm Gastrointestinal: Soft and benign, No tenderness Integumentary: No rashes Neurological: Normal speech, Normal affect Assessment & Plan Physician Review Additional Text: Acute perforated appendicitis s/p laparoscopic appendectomy, DEZ drainx2 placement Postoperative ileus DM 2, non insulin dependent HTN morbid obesity PO levaquin and flagyl started today, reviewed with ID - recommends 4 weeks total - sent to pharmacy patient feeling much better post-op ileus resolved, tolerating diet and +BMs pain well controlled for likely discharge today, general surgery to see patient dispo: Possible home in 48hrs, pt will start PO levaquin in AM, received IV today, recommended to ensure tolerating PO for at least 24 hrs Time Spent Managing Pts Care (In Minutes): 35
== END 2020-06-30 18:45 | disposition home or self-care (01) | DRG 338 ==
LOC: ER 22:01 → ERHOLD 06-19 01:44 → 2ND 06-19 02:48
PROVIDERS: ADMIT Surgery; ATTEND Surgery
PROC: 0W9F4ZZ Drainage of Abdominal Wall, Percutaneous Endoscopic Approach (ICD-10-PCS; 2020-06-19)
PROC: 0DTJ4ZZ Resection of Appendix, Percutaneous Endoscopic Approach (ICD-10-PCS; principal; 2020-06-19 13:30)
PROC: 02HV33Z Insertion of Infusion Device into Superior Vena Cava, Percutaneous Approach (ICD-10-PCS; 2020-06-25)
PROC: 0FT44ZZ Resection of Gallbladder, Percutaneous Endoscopic Approach (ICD-10-PCS; 2020-06-30)
DX: K35.33 Acute appendicitis with perforation, localized peritonitis, and gangrene, with abscess (principal); A41.9 Sepsis, unspecified organism; Z68.43 Body mass index [BMI] 50.0-59.9, adult; K50.00 Crohn's disease of small intestine without complications; K56.7 Ileus, unspecified; K80.00 Calculus of gallbladder with acute cholecystitis without obstruction; K66.0 Peritoneal adhesions (postprocedural) (postinfection); K52.9 Noninfective gastroenteritis and colitis, unspecified; E66.01 Morbid (severe) obesity due to excess calories; I10 Essential (primary) hypertension; E11.9 Type 2 diabetes mellitus without complications; K76.0 Fatty (change of) liver, not elsewhere classified; F17.200 Nicotine dependence, unspecified, uncomplicated; B96.5 Pseudomonas (aeruginosa) (mallei) (pseudomallei) as the cause of diseases classified elsewhere; B95.2 Enterococcus as the cause of diseases classified elsewhere; B96.20 Unspecified Escherichia coli [E. coli] as the cause of diseases classified elsewhere; Z91.040 Latex allergy status; Z91.048 Other nonmedicinal substance allergy status; Z90.49 Acquired absence of other specified parts of digestive tract; Z79.84 Long term (current) use of oral hypoglycemic drugs; Z79.899 Other long term (current) drug therapy; Z20.828 Contact with and (suspected) exposure to other viral communicable diseases
CPT/HCPCS: 36415; 36569; 71045; 74018; 74177; 80048; 80053; 80076; 81001; 81003; 81025; 82947; 83690; 83735; 84100; 84132; 85025; 87070; 87075; 87077; 87086; 87088; 87186; 87205; 88304; 94010; 94760; 96361; 96365; 96375; 97116; 97161; 97530; 99285; J0330; J1170; J2250; J2405; J2543; J2704; J2710; J3010; J3480; J7030; J7120; J7799; Q9967; U0002; U0003

== ENCOUNTER 2022-12-23 20:45 | Emergency (ER) | payer BC, OTHER ==
--- OUTSIDE RECORDS SUMMARY | 2022-12-23 20:50 | XMS REPORT | Continuity of Care Document ---
:1980 Author Organization [facility] t Address [address] [place] [address] [place] [id number] Care Team Providers Name Role Phone ANEESH SINHA Primary Care Physician Unavailable SAADIA Attending Clinician Unavailable Aneesh Sinha Attending Clinician [phone] TOMMY CHAND Attending Clinician Unavailable TOMMY CHAND Attending Clinician Unavailable Tommy Chand MD Attending Clinician GENERAL, SERVICE Attending Clinician Unavailable SAADIA Admitting Clinician Unavailable Payers Payer Name Policy Type Policy Number Effective Date Expiration Date [id number] 2020 00:00:00 [place] [id number] 2020 00:00:00 OUT OF STATE Problems Condition Condition Condition Status Onset Resolution Last Treating Co mments Source Name Details Category Date Date Treatment Clinician Date Chronic Chronic Problem Active [place] kidney Kidney 2-18 Communi disease Disease 00:00: ty stage 3A Stage 3a 00 [facility] Positive Positive Problem Active [facility] Measure[facility] 2-10 [facility] t finding t Finding 00:00: ty 00 [facility] Chronic Chronic Problem Active [place] intractabl Intractabl 1-17 Co m[facility]i e migraine e Migraine 00:00: ty without without 00 [facility]ospita aura Aura l Clinics Migraine Migraine Problem Active 2020-07 Sween y 2-07 Communi 00:00: ty 00 [facility]osp[facility] Clin[facility] Hypertrigl Hypertrigl Problem Active [facility] yceridemia yceridemia 8-27 Co mmuni 00:00: ty [facility] Diabetes Diabetes Problem Active [facility] mellitus Mellitus 5-18 Commun i 00:: ty [facility] Hypertensi Hypertensi Problem Active S [facility] ve ve 18 Communi disorder Disorder 00:00: ty [facility] Seasonal Seasonal Problem Active [facility] allergy Allergy 18 Communi 00:00: ty [facility] Body mass Body Mass Problem Active Swe patric index 40+ Index 40+ 5-18 Comm uni - severely - Severely 00:00: ty obese Obese [facility] Polycystic Polycystic Problem Active [facility] ovary Ovary 12-06 Communi syndrome Syndrome 00:00: ty [facility] No known No known Disease Unive rs active active ity of problems problems [facility] [place] [facility] S/P S/P Problem Active [facility] cholecyste cholecyste Ph ysici ctomy ctomy ans Allergies, Adverse Reactions, Alerts Allergy Allergy Status Severity Reaction(s) Onset Inactive Treating Comm ents Source Name Type Date Date Clinician LATEX DRUG Active Rash Univers INGREDI - ity of 00:00: [place] [facility] Latex Allergy Active Rash [place] to Communi substanc ty e [facility] NO KNOWN Drug Active Univers ALLERGIE Class ity of S [facility] [place] [facility] Social History Social Habit Start Date Stop Date Quantity Comments Source Exposure to Not sure [facility] SARS-CoV-2 (event) Medica l Branch Tobacco use and 2021-08-01 2021-08-01 Never used [facility] exposure 00:00:00 00:00:00 [facility] Sex Assigned At [birth year] [facility] 00:00:00 00:00:00 [facility] Smoking Status Start Date Stop Date Source Former Smoker [facility] Unknown if ever smoked [facility] Medications Ordered Filled Start Stop Current Ordering Indication Dosage Frequency Signature Comments Components Source Medication Medication Date Date Medication? Clinician (SIG) Name Name ubrogepant Yes Ubrelvy 50 U nivers (UBRELVY) 1-11 mg tablet ity o f 50 mg Tab 09:13: Take 1 [place] 15 tablet by Medical oral Branch route. Ibuprofen Yes ibuprofen Uni vers 200 mg -11 200 mg ity of capsule 09:13: capsule 15 Take 1 Medical capsule Branch every 6 hours by oral route as needed. biotin Yes biotin Univers 1,000 mcg -11 1,000 mcg ity o f Chew 09:13: chewable [place] 15 tablet Medical Take 1 Branch tablet every day by oral route. topiramate Yes [id number] 25mg Take 1 Univers 25 mg 1-11 9105 tablet by ity of tablet 00:00: mouth 2 [place] 00 (two) Medical times Branch daily. After one week, may take 2 PO BID. rizatriptan Yes TAKE ONE Un marisabel 10 mg 1-03 TABLET BY ity of tablet 00:00: MOUTH AT [place] 00 ONSET OF Medical MIGRAINE. Branch IF SYMPTOMS PERSIST, A SECOND DOSE MAY BE TAKEN IN 2 HOURS. DO NOT EXCEED 2 DOSES IN A 24 HOUR PERIOD, UNLESS OTHERWISE INSTRUCTED BY YOUR PHYSICIAN RISA Du Yes 10mg Take 10 mg U nivers mg tablet 1-01 by mouth ity of 00:00: daily. [address] metFORMIN 2020-07 Yes 1000mg Take 1,000 Univers 1,000 mg 2-23 mg by ity of tablet 00:00: mouth 2 [place] (two) Medical times Branch daily. montelukast 2020-07 Yes 10mg Take 10 mg Univers 10 mg 2-19 by mouth ity of tablet 00:00: daily. [place] [facility] Branch meclizine 2020-07 Yes Univers 25 mg 2-03 ity of tablet 00:00: [place] [id number] Medical Branch fenofibrate 2020-07 Yes Univer s 145 mg 1-30 ity of tablet 00:00: [place] [facility] bisoproloL- 2020-07 Yes Univer s hydrochloro 1-15 ity of thiazide 00:00: [place] 10-6.25 mg 00 Medical per tablet Branch bisoprolol bisoprolol No bisoprolol [place] 10 10 10 Communi mg-hydrochl mg-hydrochl mg-hydroch ty orothiazide [facility]rothiazide [facility] 6.25 mg 6.25 mg de 6.25 mg l tablet TAKE tablet TAKE tablet Clinics 1 TABLET BY 1 TABLET BY TAKE 1 MOUTH ONCE MOUTH ONCE TABLET BY DAILY DAILY MOUTH ONCE DAILY metformin metformin No metformin [place] 1,000 mg 1,000 mg 1,000 mg Com alanna tablet TAKE tablet TAKE tablet ty 1 TABLET BY 1 TABLET BY TAKE 1 Hospita MOUTH TWICE MOUTH TWICE TABLET BY l DAILY DAILY MOUTH Clinics PATIENT DUE PATIENT DUE TWICE FOR LABS FOR LABS DAILY PATIENT DUE FOR LABS montelukast montelukast No montelukas [place] 10 mg 10 mg t 10 mg Communi tablet TAKE tablet TAKE tablet ty 1 TABLET BY 1 TABLET BY TAKE 1 Hospita MOUTH ONCE MOUTH ONCE TABLET BY l DAILY DAILY MOUTH ONCE Clinics DAILY biotin biotin No 1 Q1D biotin [place] 1,000 mcg 1,000 mcg 1,000 mcg Communi chewable chewable chewable ty tablet Take tablet Take tablet Hospita 1 tablet 1 tablet Take 1 l every day every day tablet Cli nics by oral by oral every day route. route. by oral route. bisoprolol bisoprolol No bisoprolol [place] 10 10 10 Communi mg-hydrochl mg-hydrochl mg-hydroch ty orothiazide [facility]rothiazide [facility] 6.25 mg 6.25 mg de 6.25 mg l tablet TAKE tablet TAKE tablet Clinics 1 TABLET BY 1 TABLET BY TAKE 1 MOUTH ONCE MOUTH ONCE TABLET BY DAILY DAILY MOUTH ONCE DAILY fenofibrate fenofibrate No 1 Q1D fenofibrat [place] nanocrystal nanocrystal e C ommuni lized 145 lized 145 nanocrysta ty mg tablet mg tablet llized 145 Hospita Take 1 Take 1 mg tablet l tablet tablet Take 1 Clinics every day every day tablet by oral by oral every day route. route. by oral route. glucosamine glucosamine No 1capsul BID glucosamin [place] 116 116 e(s) e 116 Communi mg-chondroi mg-chondroi mg-chondro ty tin 100 tin 100 itin 100 Hospi ta mg-dietary mg-dietary mg-dietary l supplement supplement supplement Clinics #25 capsule #25 capsule #25 Take 1 Take 1 capsule capsule capsule Take 1 twice a day twice a day capsule by oral by oral twice a route. route. day by oral route. ibuprofen ibuprofen No 1capsul Q6H ibuprofen [place] 200 mg 200 mg e(s) 200 mg Communi capsule capsule capsule ty Take 1 Take 1 Take 1 Hospita capsule capsule capsule l every 6 every 6 every 6 Clinic s hours by hours by hours by oral route oral route oral route as needed. as needed. as needed. metformin metformin No metformin [place] 1,000 mg 1,000 mg 1,000 mg Com alanna tablet TAKE tablet TAKE tablet ty 1 TABLET BY 1 TABLET BY TAKE 1 Hospita MOUTH TWICE MOUTH TWICE TABLET BY l DAILY DAILY MOUTH Clinics PATIENT DUE PATIENT DUE TWICE FOR LABS FOR LABS DAILY PATIENT DUE FOR LABS montelukast montelukast No montelukas [place] 10 mg 10 mg t 10 mg Communi tablet TAKE tablet TAKE tablet ty 1 TABLET BY 1 TABLET BY TAKE 1 Hospita MOUTH ONCE MOUTH ONCE TABLET BY l DAILY DAILY MOUTH ONCE Clinics DAILY omega-3 417 omega-3 417 No 1capsul BID omega-3 [place] mg-dha 120 mg-dha 120 e(s) 417 mg-dha Communi mg-epa-276 mg-epa-276 120 ty mg-fish oil mg-fish oil mg-epa-276 Hospita 600 600 mg-fish l mg-tumeric mg-tumeric oil 600 Clinics capsule capsule mg-tumeric Take 1 Take 1 capsule capsule capsule Take 1 twice a day twice a day capsule by oral by oral twice a route. route. day by oral route. biotin biotin No 1 Q1D biotin [place] 1,000 mcg 1,000 mcg 1,000 mcg Communi chewable chewable chewable ty tablet Take tablet Take tablet Hospita 1 tablet 1 tablet Take 1 l every day every day tablet Cli nics by oral by oral every day route. route. by oral route. bisoprolol bisoprolol No bisoprolol [place] 10 10 10 Communi mg-hydrochl mg-hydrochl mg-hydroch ty orothiazide [facility]rothiazide [facility] 6.25 mg 6.25 mg de 6.25 mg l tablet TAKE tablet TAKE tablet Clinics 1 TABLET BY 1 TABLET BY TAKE 1 MOUTH ONCE MOUTH ONCE TABLET BY DAILY DAILY MOUTH ONCE DAILY fenofibrate fenofibrate No fenofibrat [place] nanocrystal nanocrystal e C ommuni lized 145 lized 145 nanocrysta ty mg tablet mg tablet llized 145 Hospita TAKE 1 TAKE 1 mg tablet l TABLET BY TABLET BY TAKE 1 Cli nics MOUTH ONCE MOUTH ONCE TABLET BY DAILY DAILY MOUTH ONCE DAILY glucosamine glucosamine No 1capsul BID glucosamin [place] 116 116 e(s) e 116 Communi mg-chondroi mg-chondroi mg-chondro ty tin 100 tin 100 itin 100 Hospi ta mg-dietary mg-dietary mg-dietary l supplement supplement supplement Clinics #25 capsule #25 capsule #25 Take 1 Take 1 capsule capsule capsule Take 1 twice a day twice a day capsule by oral by oral twice a route. route. day by oral route. ibuprofen ibuprofen No 1capsul Q6H ibuprofen [place] 200 mg 200 mg e(s) 200 mg Communi capsule capsule capsule ty Take 1 Take 1 Take 1 Hospita capsule capsule capsule l every 6 every 6 every 6 Clinic s hours by hours by hours by oral route oral route oral route as needed. as needed. as needed. metformin metformin No metformin [place] 1,000 mg 1,000 mg 1,000 mg Com alanna tablet TAKE tablet TAKE tablet ty 1 TABLET BY 1 TABLET BY TAKE 1 Hospita MOUTH TWICE MOUTH TWICE TABLET BY l DAILY DAILY MOUTH Clinics PATIENT DUE PATIENT DUE TWICE FOR LABS FOR LABS DAILY PATIENT DUE FOR LABS montelukast montelukast No montelukas [place] 10 mg 10 mg t 10 mg Communi tablet TAKE tablet TAKE tablet ty 1 TABLET BY 1 TABLET BY TAKE 1 Hospita MOUTH ONCE MOUTH ONCE TABLET BY l DAILY DAILY MOUTH ONCE Clinics DAILY omega-3 417 omega-3 417 No 1capsul BID omega-3 [place] mg-dha 120 mg-dha 120 e(s) 417 mg-dha Communi mg-epa-276 mg-epa-276 120 ty mg-fish oil mg-fish oil mg-epa-276 Hospita 600 600 mg-fish l mg-tumeric mg-tumeric oil 600 Clinics capsule capsule mg-tumeric Take 1 Take 1 capsule capsule capsule Take 1 twice a day twice a day capsule by oral by oral twice a route. route. day by oral route. biotin biotin No 1 Q1D biotin [place] 1,000 mcg 1,000 mcg 1,000 mcg Communi chewable chewable chewable ty tablet Take tablet Take tablet Hospita 1 tablet 1 tablet Take 1 l every day every day tablet Cli nics by oral by oral every day route. route. by oral route. bisoprolol bisoprolol No bisoprolol [place] 10 10 10 Communi mg-hydrochl mg-hydrochl mg-hydroch ty orothiazide [facility]thiazide [facility] 6.25 mg 6.25 mg de 6.25 mg l tablet TAKE tablet TAKE tablet Clinics 1 TABLET BY 1 TABLET BY TAKE 1 MOUTH ONCE MOUTH ONCE TABLET BY DAILY DAILY MOUTH ONCE DAILY fenofibrate fenofibrate No fenofibrat [place] nanocrystal nanocrystal e C ommuni lized 145 lized 145 nanocrysta ty mg tablet mg tablet llized 145 Hospita TAKE 1 TAKE 1 mg tablet l TABLET BY TABLET BY TAKE 1 Cli nics MOUTH ONCE MOUTH ONCE TABLET BY DAILY DAILY MOUTH ONCE DAILY glucosamine glucosamine No 1capsul BID glucosamin [place] 116 116 e(s) e 116 Communi mg-chondroi mg-chondroi mg-chondro ty tin 100 tin 100 itin 100 Hospi ta mg-dietary mg-dietary mg-dietary l supplement supplement supplement Clinics #25 capsule #25 capsule #25 Take 1 Take 1 capsule capsule capsule Take 1 twice a day twice a day capsule by oral by oral twice a route. route. day by oral route. ibuprofen ibuprofen No 1capsul Q6H ibuprofen [place] 200 mg 200 mg e(s) 200 mg Communi capsule capsule capsule ty Take 1 Take 1 Take 1 Hospita capsule capsule capsule l every 6 every 6 every 6 Clinic s hours by hours by hours by oral route oral route oral route as needed. as needed. as needed. meclizine meclizine No 1 TID meclizine [place] 25 mg 25 mg 25 mg Communi tablet Take tablet Take tablet ty 1 tablet 3 1 tablet 3 Take 1 H ospita times a day times a day tablet 3 l by oral by oral times a Clinic s route. route. day by oral route. metformin metformin No metformin [place] 1,000 mg 1,000 mg 1,000 mg Com alanna tablet TAKE tablet TAKE tablet ty 1 TABLET BY 1 TABLET BY TAKE 1 Hospita MOUTH TWICE MOUTH TWICE TABLET BY l DAILY DAILY MOUTH Clinics PATIENT DUE PATIENT DUE TWICE FOR LABS FOR LABS DAILY PATIENT DUE FOR LABS montelukast montelukast No montelukas [place] 10 mg 10 mg t 10 mg Communi tablet TAKE tablet TAKE tablet ty 1 TABLET BY 1 TABLET BY TAKE 1 Hospita MOUTH ONCE MOUTH ONCE TABLET BY l DAILY DAILY MOUTH ONCE Clinics DAILY omega-3 417 omega-3 417 No 1capsul BID omega-3 [place] mg-dha 120 mg-dha 120 e(s) 417 mg-dha Communi mg-epa-276 mg-epa-276 120 ty mg-fish oil mg-fish oil mg-epa-276 Hospita 600 600 mg-fish l mg-tumeric mg-tumeric oil 600 Clinics capsule capsule mg-tumeric Take 1 Take 1 capsule capsule capsule Take 1 twice a day twice a day capsule by oral by oral twice a route. route. day by oral route. Ubrelvy 50 Ubrelvy 50 No 1 Ubrelvy 50 [place] mg tablet mg tablet mg tablet Communi Take 1 Take 1 Take 1 ty tablet by tablet by tablet by Hospita oral route. oral route. oral l route. [facility] biotin biotin No 1 Q1D biotin [place] 1,000 mcg 1,000 mcg 1,000 mcg Communi chewable chewable chewable ty tablet Take tablet Take tablet Hospita 1 tablet 1 tablet Take 1 l every day every day tablet Cli nics by oral by oral every day route. route. by oral route. bisoprolol bisoprolol No bisoprolol [place] 10 10 10 Communi mg-hydrochl mg-hydrochl mg-hydroch ty orothiazide [facility]rothiazide [facility] 6.25 mg 6.25 mg de 6.25 mg l tablet TAKE tablet TAKE tablet Clinics 1 TABLET BY 1 TABLET BY TAKE 1 MOUTH ONCE MOUTH ONCE TABLET BY DAILY DAILY MOUTH ONCE DAILY fenofibrate fenofibrate No fenofibrat [place] nanocrystal nanocrystal e C ommuni lized 145 lized 145 nanocrysta ty mg tablet mg tablet llized 145 Hospita TAKE 1 TAKE 1 mg tablet l TABLET BY TABLET BY TAKE 1 Cli nics MOUTH ONCE MOUTH ONCE TABLET BY DAILY DAILY MOUTH ONCE DAILY glucosamine glucosamine No 1capsul BID glucosamin [place] 116 116 e(s) e 116 Communi mg-chondroi mg-chondroi mg-chondro ty tin 100 tin 100 itin 100 Hospi ta mg-dietary mg-dietary mg-dietary l supplement supplement supplement Clinics #25 capsule #25 capsule #25 Take 1 Take 1 capsule capsule capsule Take 1 twice a day twice a day capsule by oral by oral twice a route. route. day by oral route. ibuprofen ibuprofen No 1capsul Q6H ibuprofen [place] 200 mg 200 mg e(s) 200 mg Communi capsule capsule capsule ty Take 1 Take 1 Take 1 Hospita capsule capsule capsule l every 6 every 6 every 6 Clinic s hours by hours by hours by oral route oral route oral route as needed. as needed. as needed. meclizine meclizine No 1 TID meclizine [place] 25 mg 25 mg 25 mg Communi tablet Take tablet Take tablet ty 1 tablet 3 1 tablet 3 Take 1 H ospita times a day times a day tablet 3 l by oral by oral times a Clinic s route. route. day by oral route. metformin metformin No metformin [place] 1,000 mg 1,000 mg 1,000 mg Com alanna tablet TAKE tablet TAKE tablet ty 1 TABLET BY 1 TABLET BY TAKE 1 Hospita MOUTH TWICE MOUTH TWICE TABLET BY l DAILY DAILY MOUTH Clinics PATIENT DUE PATIENT DUE TWICE FOR LABS FOR LABS DAILY PATIENT DUE FOR LABS montelukast montelukast No montelukas [place] 10 mg 10 mg t 10 mg Communi tablet TAKE tablet TAKE tablet ty 1 TABLET BY 1 TABLET BY TAKE 1 [facility]ospita MOUTH ONCE MOUTH ONCE TABLET BY l DAILY DAILY MOUTH ONCE Clinics DAILY omega-3 417 omega-3 417 No 1capsul BID omega-3 [place] mg-dha 120 mg-dha 120 e(s) 417 mg-dha Communi mg-epa-276 mg-epa-276 120 ty mg-fish oil mg-fish oil mg-epa-276 Hospita 600 600 mg-fish l mg-tumeric mg-tumeric oil 600 Clinics capsule capsule mg-tumeric Take 1 Take 1 capsule capsule capsule Take 1 twice a day twice a day capsule by oral by oral twice a route. route. day by oral route. rizatriptan rizatriptan No rizatripta [place] 10 mg 10 mg n 10 mg Communi tablet TAKE tablet TAKE tablet ty 1 TABLET 1 TABLET TAKE 1 Hospi ta (10 MG) BY (10 MG) BY TABLET (10 l ORAL ROUTE ORAL ROUTE MG) BY C leda ONCE, NOVEMBER ONCE, NOVEMBER ORAL ROUTE REPEAT AT 2 REPEAT AT 2 ONCE, NOVEMBER HOUR HOUR REPEAT AT INTERVALS; INTERVALS; 2 HOUR DO NOT DO NOT INTERVALS; EXCEED 30 EXCEED 30 DO NOT MG IN 24 MG IN 24 EXCEED 30 HOURS HOURS MG IN 24 HOURS Ubrelvy 100 Ubrelvy 100 No 1 Q1D Ubrelvy [place] mg tablet mg tablet 100 mg Com alanna Take 1 Take 1 tablet ty tablet tablet Take 1 Hospita every day every day tablet l by oral by oral every day Clin ics route as route as by oral needed. needed. route as needed. Ubrelvy 50 Ubrelvy 50 No 1 Ubrelvy 50 [place] mg tablet mg tablet mg tablet Communi Take 1 Take 1 Take 1 ty tablet by tablet by tablet by Hospita oral route. oral route. oral l route. Clinics biotin biotin No 1 Q1D biotin [place] 1,000 mcg 1,000 mcg 1,000 mcg Communi chewable chewable chewable ty tablet Take tablet Take tablet [facility]ospita 1 tablet 1 tablet Take 1 l every day every day tablet Cli nics by oral by oral every day route. route. by oral route. bisoprolol bisoprolol No bisoprolol [place] 10 10 10 Communi mg-hydrochl mg-hydrochl mg-hydroch ty orothiazide [facility]thiazide [facility] 6.25 mg 6.25 mg de 6.25 mg l tablet TAKE tablet TAKE tablet Clinics 1 TABLET BY 1 TABLET BY TAKE 1 MOUTH ONCE MOUTH ONCE TABLET BY DAILY DAILY MOUTH ONCE DAILY Farxiga 10 Farxiga 10 No 1 Q1D Farxiga 10 [place] mg tablet mg tablet mg tablet Communi Take 1 Take 1 Take 1 ty tablet tablet tablet Hospita every day every day every day l by oral by oral by oral Clinic s route. route. route. fenofibrate fenofibrate No fenofibrat [place] nanocrystal nanocrystal e C ommuni lized 145 lized 145 nanocrysta ty mg tablet mg tablet llized 145 Hospita TAKE 1 TAKE 1 mg tablet l TABLET BY TABLET BY TAKE 1 Cli nics MOUTH ONCE MOUTH ONCE TABLET BY DAILY DAILY MOUTH ONCE DAILY glucosamine glucosamine No 1capsul BID glucosamin [place] 116 116 e(s) e 116 Communi mg-chondroi mg-chondroi mg-chondro ty tin 100 tin 100 itin 100 Hospi ta mg-dietary mg-dietary mg-dietary l supplement supplement supplement Clinics #25 capsule #25 capsule #25 Take 1 Take 1 capsule capsule capsule Take 1 twice a day twice a day capsule by oral by oral twice a route. route. day by oral route. ibuprofen ibuprofen No 1capsul Q6H ibuprofen [place] 200 mg 200 mg e(s) 200 mg Communi capsule capsule capsule ty Take 1 Take 1 Take 1 Hospita capsule capsule capsule l every 6 every 6 every 6 Clinic s hours by hours by hours by oral route oral route oral route as needed. as needed. as needed. meclizine meclizine No meclizine [place] 25 mg 25 mg 25 mg Communi tablet Take tablet Take tablet ty 1 tablet 3 1 tablet 3 Take 1 H ospita times a day times a day tablet 3 l by oral by oral times a Clinic s route. route. day by oral route. metformin metformin No metformin [place] 1,000 mg 1,000 mg 1,000 mg Com alanna tablet TAKE tablet TAKE tablet ty 1 TABLET BY 1 TABLET BY TAKE 1 Hospita MOUTH TWICE MOUTH TWICE TABLET BY l DAILY DAILY MOUTH Clinics PATIENT DUE PATIENT DUE TWICE FOR LABS FOR LABS DAILY PATIENT DUE FOR LABS montelukast montelukast No montelukas [place] 10 mg 10 mg t 10 mg Communi tablet TAKE tablet TAKE tablet ty 1 TABLET BY 1 TABLET BY TAKE 1 Hospita MOUTH ONCE MOUTH ONCE TABLET BY l DAILY DAILY MOUTH ONCE Clinics DAILY omega-3 417 omega-3 417 No 1capsul BID omega-3 [place] mg-dha 120 mg-dha 120 e(s) 417 mg-dha Communi mg-epa-276 mg-epa-276 120 ty mg-fish oil mg-fish oil mg-epa-276 Hospita 600 600 mg-fish l mg-tumeric mg-tumeric oil 600 Clinics capsule capsule mg-tumeric Take 1 Take 1 capsule capsule capsule Take 1 twice a day twice a day capsule by oral by oral twice a route. route. day by oral route. rizatriptan rizatriptan No rizatripta [place] 10 mg 10 mg n 10 mg Communi tablet TAKE tablet TAKE tablet ty 1 TABLET 1 TABLET TAKE 1 Hospi ta (10 MG) BY (10 MG) BY TABLET (10 l ORAL ROUTE ORAL ROUTE MG) BY Jhonathan tompkins ONCE, NOVEMBER ONCE, NOVEMBER ORAL ROUTE REPEAT AT 2 REPEAT AT 2 ONCE, NOVEMBER HOUR HOUR REPEAT AT INTERVALS; INTERVALS; 2 HOUR DO NOT DO NOT INTERVALS; EXCEED 30 EXCEED 30 DO NOT MG IN 24 MG IN 24 EXCEED 30 HOURS HOURS MG IN 24 HOURS Ubrelvy 100 Ubrelvy 100 No 1 Q1D Ubrelvy [place] mg tablet mg tablet 100 mg Com alanna Take 1 Take 1 tablet ty tablet tablet Take 1 Hospita every day every day tablet l by oral by oral every day Clin ics route as route as by oral needed. needed. route as needed. Ubrelvy 50 Ubrelvy 50 No 1 Ubrelvy 50 [place] mg tablet mg tablet mg tablet Communi Take 1 Take 1 Take 1 ty tablet by tablet by tablet by Hospita oral route. oral route. oral l route. Clinics biotin biotin No 1 Q1D biotin [place] 1,000 mcg 1,000 mcg 1,000 mcg Communi chewable chewable chewable ty tablet Take tablet Take tablet Hospita 1 tablet 1 tablet Take 1 l every day every day tablet Cli nics by oral by oral every day route. route. by oral route. bisoprolol bisoprolol No bisoprolol [place] 10 10 10 Communi mg-hydrochl mg-hydrochl mg-hydroch ty orothiazide [facility]thiazide [facility] 6.25 mg 6.25 mg de 6.25 mg l tablet TAKE tablet TAKE tablet Clinics 1 TABLET BY 1 TABLET BY TAKE 1 MOUTH ONCE MOUTH ONCE TABLET BY DAILY DAILY MOUTH ONCE DAILY Farxiga 10 Farxiga 10 No Farxiga 10 [place] mg tablet mg tablet mg tablet Communi TAKE 1 TAKE 1 TAKE 1 ty TABLET BY TABLET BY TABLET BY Hospita MOUTH ONCE MOUTH ONCE MOUTH ONCE l DAILY DAILY DAILY Clinics fenofibrate fenofibrate No fenofibrat [place] nanocrystal nanocrystal e C ommuni lized 145 lized 145 nanocrysta ty mg tablet mg tablet llized 145 Hospita TAKE 1 TAKE 1 mg tablet l TABLET BY TABLET BY TAKE 1 Cli nics MOUTH ONCE MOUTH ONCE TABLET BY DAILY DAILY MOUTH ONCE DAILY glucosamine glucosamine No 1capsul BID glucosamin [place] 116 116 e(s) e 116 Communi mg-chondroi mg-chondroi mg-chondro ty tin 100 tin 100 itin 100 Hospi ta mg-dietary mg-dietary mg-dietary l supplement supplement supplement Clinics #25 capsule #25 capsule #25 Take 1 Take 1 capsule capsule capsule Take 1 twice a day twice a day capsule by oral by oral twice a route. route. day by oral route. ibuprofen ibuprofen No 1capsul Q6H ibuprofen [place] 200 mg 200 mg e(s) 200 mg Communi capsule capsule capsule ty Take 1 Take 1 Take 1 Hospita capsule capsule capsule l every 6 every 6 every 6 Clinic s hours by hours by hours by oral route oral route oral route as needed. as needed. as needed. meclizine meclizine No meclizine [place] 25 mg 25 mg 25 mg Communi tablet TAKE tablet TAKE tablet ty 1 TABLET BY 1 TABLET BY TAKE 1 Hospita MOUTH THREE MOUTH THREE TABLET BY l TIMES DAILY TIMES DAILY MOUTH Clinics THREE TIMES DAILY metformin metformin No metformin [place] 1,000 mg 1,000 mg 1,000 mg Com alanna tablet TAKE tablet TAKE tablet ty 1 TABLET BY 1 TABLET BY TAKE 1 Hospita MOUTH TWICE MOUTH TWICE TABLET BY l DAILY DAILY MOUTH Clinics PATIENT DUE PATIENT DUE TWICE FOR LABS FOR LABS DAILY PATIENT DUE FOR LABS montelukast montelukast No montelukas [place] 10 mg 10 mg t 10 mg Communi tablet TAKE tablet TAKE tablet ty 1 TABLET BY 1 TABLET BY TAKE 1 Hospita MOUTH ONCE MOUTH ONCE TABLET BY l DAILY DAILY MOUTH ONCE Clinics DAILY omega-3 417 omega-3 417 No 1capsul BID omega-3 [place] mg-dha 120 mg-dha 120 e(s) 417 mg-dha Communi mg-epa-276 mg-epa-276 120 ty mg-fish oil mg-fish oil mg-epa-276 Hospita 600 600 mg-fish l mg-tumeric mg-tumeric oil 600 Clinics capsule capsule mg-tumeric Take 1 Take 1 capsule capsule capsule Take 1 twice a day twice a day capsule by oral by oral twice a route. route. day by oral route. topiramate topiramate No topiramate [place] 25 mg 25 mg 25 mg Communi tablet TAKE tablet TAKE tablet ty 2 TABLETS 2 TABLETS TAKE 2 Hos jami TWICE DAILY TWICE DAILY TABLETS l BY MOUTH BY MOUTH TWICE Clinic s DAILY BY MOUTH biotin biotin No 1 Q1D biotin [place] 1,000 mcg 1,000 mcg 1,000 mcg [facility] chewable chewable chewable ty tablet Take tablet Take tablet Hospita 1 tablet 1 tablet Take 1 l every day every day tablet Cli nics by oral by oral every day route. route. by oral route. bisoprolol bisoprolol No bisoprolol [facility] 10 10 10 [facility] mg-hydrochl mg-hydrochl mg-hydroch ty orothiazide [facility]thiazide [facility] 6.25 mg 6.25 mg de 6.25 mg l tablet TAKE tablet TAKE tablet Clinics 1 TABLET BY 1 TABLET BY TAKE 1 MOUTH ONCE MOUTH ONCE TABLET BY DAILY DAILY MOUTH ONCE DAILY Farxiga 10 Farxiga 10 No Farxiga 10 [facility] mg tablet mg tablet mg tablet [facility] TAKE 1 TAKE 1 TAKE 1 ty TABLET BY TABLET BY TABLET BY Hospita MOUTH ONCE MOUTH ONCE MOUTH ONCE l DAILY DAILY DAILY Clinics fenofibrate fenofibrate No fenofibrat [place] nanocrystal nanocrystal e C om[facility]i lized 145 lized 145 nanocrysta ty mg tablet mg tablet llized 145 [facility]ospita TAKE 1 TAKE 1 mg tablet l TABLET BY TABLET BY TAKE 1 Cli nics MOUTH ONCE MOUTH ONCE TABLET BY DAILY DAILY MOUTH ONCE DAILY glucosamine glucosamine No 1capsul BID glucosamin [facility] 116 116 e(s) e 116 [facility] mg-chondroi mg-chondroi mg-chondro ty tin 100 tin 100 itin 100 Hospi ta mg-dietary mg-dietary mg-dietary l supplement supplement supplement Clinics #25 capsule #25 capsule #25 Take 1 Take 1 capsule capsule capsule Take 1 twice a day twice a day capsule by oral by oral twice a route. route. day by oral route. ibuprofen ibuprofen No 1capsul Q6H ibuprofen [facility] 200 mg 200 mg e(s) 200 mg [facility] capsule capsule capsule ty Take 1 Take 1 Take 1 [facility]ospita capsule capsule capsule l every 6 every 6 every 6 Clinic s hours by hours by hours by oral route oral route oral route as needed. as needed. as needed. meclizine meclizine No meclizine [facility] 25 mg 25 mg 25 mg [facility] tablet TAKE tablet TAKE tablet ty 1 TABLET BY 1 TABLET BY TAKE 1 Hospita MOUTH IN AM MOUTH IN AM TABLET BY l and 2 and 2 MOUTH IN Clinics TABLETS AT TABLETS AT AM and 2 8 PM 8 PM TABLETS AT 8 PM metformin metformin No metformin [place] 1,000 mg 1,000 mg 1,000 mg Com alanna tablet TAKE tablet TAKE tablet ty 1 TABLET BY 1 TABLET BY TAKE 1 [facility]ospita MOUTH TWICE MOUTH TWICE TABLET BY l DAILY DAILY MOUTH Clinics TWICE DAILY montelukast montelukast No montelukas [facility] 10 mg 10 mg t 10 mg [facility] tablet TAKE tablet TAKE tablet ty 1 TABLET BY 1 TABLET BY TAKE 1 [facility]ospita MOUTH ONCE MOUTH ONCE TABLET BY l DAILY FOR DAILY FOR MOUTH ONCE Clinics 90 DAYS 90 DAYS DAILY FOR 90 DAYS omega-3 417 omega-3 417 No 1capsul BID omega-3 [facility] mg-dha 120 mg-dha 120 e(s) 417 mg-dha [facility] mg-epa-276 mg-epa-276 120 ty mg-fish oil mg-fish oil mg-epa-276 [facility]osp[facility] 600 600 mg-fish l mg-tumeric mg-tumeric oil 600 Clinics capsule capsule mg-tumeric Take 1 Take 1 capsule capsule capsule Take 1 twice a day twice a day capsule by oral by oral twice a route. route. day by oral route. biotin biotin No 1 Q1D biotin [place] 1,000 mcg 1,000 mcg 1,000 mcg [facility] chewable chewable chewable ty tablet Take tablet Take tablet [facility] 1 tablet 1 tablet Take 1 l every day every day tablet Cli nics by oral by oral every day route. route. by oral route. bisoprolol bisoprolol No bisoprolol [facility] 10 10 10 [facility] mg-hydrochl mg-hydrochl mg-hydroch ty orothiazide [facility]ide [facility] 6.25 mg 6.25 mg de 6.25 mg l tablet TAKE tablet TAKE tablet Clinics 1 TABLET BY 1 TABLET BY TAKE 1 MOUTH ONCE MOUTH ONCE TABLET BY DAILY DAILY MOUTH ONCE DAILY Farxiga 10 Farxiga 10 No Farxiga 10 [facility] mg tablet mg tablet mg tablet [facility] Take 1 Take 1 Take 1 ty tablet by tablet by tablet by Hospita mouth once mouth once mouth once l daily daily daily Clinics fenofibrate fenofibrate No fenofibrat [place] nanocrystal nanocrystal e C ommuni lized 145 lized 145 nanocrysta ty mg tablet mg tablet llized 145 [facility]osp[facility] Take 1 Take 1 mg tablet l tablet by tablet by Take 1 Cli nics mouth once mouth once tablet by daily daily mouth once daily glucosamine glucosamine No 1capsul BID glucosamin [facility] 116 116 e(s) e 116 [facility] mg-chondroi mg-chondroi mg-chondro ty tin 100 tin 100 itin 100 Hospi ta mg-dietary mg-dietary mg-dietary l supplement supplement supplement Clinics #25 capsule #25 capsule #25 Take 1 Take 1 capsule capsule capsule Take 1 twice a day twice a day capsule by oral by oral twice a route. route. day by oral route. hydroxyzine hydroxyzine No 1 TID hydroxyzin [facility] HCl 25 mg HCl 25 mg e HCl 25 C om[facility]i tablet Take tablet Take mg tablet ty 1 tablet 3 1 tablet 3 Take 1 H [facility] times a day times a day tablet 3 l by oral by oral times a Clinic s route. route. day by oral route. ibuprofen ibuprofen No 1capsul Q6H ibuprofen [facility] 200 mg 200 mg e(s) 200 mg [facility] capsule capsule capsule ty Take 1 Take 1 Take 1 [facility]osp[facility] capsule capsule capsule l every 6 every 6 every 6 Clinic s hours by hours by hours by oral route oral route oral route as needed. as needed. as needed. meclizine meclizine No meclizine [facility] 25 mg 25 mg 25 mg [facility] tablet TAKE tablet TAKE tablet ty 1 TABLET BY 1 TABLET BY TAKE 1 [facility]ospita MOUTH THREE MOUTH THREE TABLET BY l TIMES DAILY TIMES DAILY MOUTH Clinics THREE TIMES DAILY metformin metformin No metformin [place] 1,000 mg 1,000 mg 1,000 mg Com alanna tablet Take tablet Take tablet ty 1 tablet by 1 tablet by Take 1 [facility]osp[facility] mouth twice mouth twice tablet by l daily daily mouth Clinics twice daily montelukast montelukast No montelukas [facility] 10 mg 10 mg t 10 mg [facility] tablet TAKE tablet TAKE tablet ty 1 TABLET BY 1 TABLET BY TAKE 1 [facility]ita MOUTH ONCE MOUTH ONCE TABLET BY l DAILY FOR DAILY FOR MOUTH ONCE Clinics 90 DAYS 90 DAYS DAILY FOR 90 DAYS omega-3 417 omega-3 417 No 1capsul BID omega-3 [facility] mg-dha 120 mg-dha 120 e(s) 417 mg-dha [facility] mg-epa-276 mg-epa-276 120 ty mg-fish oil mg-fish oil mg-epa-276 [facility] 600 600 mg-fish l mg-tumeric mg-tumeric oil 600 Clinics capsule capsule mg-tumeric Take 1 Take 1 capsule capsule capsule Take 1 twice a day twice a day capsule by oral by oral twice a route. route. day by oral route. biotin biotin No 1 Q1D biotin [place] 1,000 mcg 1,000 mcg 1,000 mcg [facility] chewable chewable chewable ty tablet Take tablet Take tablet [facility] 1 tablet 1 tablet Take 1 l every day every day tablet Cli nics by oral by oral every day route. route. by oral route. bisoprolol bisoprolol No bisoprolol [facility] 10 10 10 [facility] mg-hydrochl mg-hydrochl mg-hydroch ty orothiazide [facility] 6.25 mg 6.25 mg de 6.25 mg l tablet Take tablet Take tablet Clinics 1 tablet by 1 tablet by Take 1 mouth once mouth once tablet by daily daily mouth once daily Farxiga 10 Farxiga 10 No Farxiga 10 [facility] mg tablet mg tablet mg tablet [facility] Take 1 Take 1 Take 1 ty tablet by tablet by tablet by [facility]ospita mouth once mouth once mouth once l daily daily daily Clinics fenofibrate fenofibrate No fenofibrat [place] nanocrystal nanocrystal e C ommuni lized 145 lized 145 nanocrysta ty mg tablet mg tablet llized 145 [facility]osp[facility] Take 1 Take 1 mg tablet l tablet by tablet by Take 1 Cli nics mouth once mouth once tablet by daily daily mouth once daily glucosamine glucosamine No 1capsul BID glucosamin [facility] 116 116 e(s) e 116 [facility] mg-chondroi mg-chondroi mg-chondro ty tin 100 tin 100 itin 100 Hospi ta mg-dietary mg-dietary mg-dietary l supplement supplement supplement Clinics #25 capsule #25 capsule #25 Take 1 Take 1 capsule capsule capsule Take 1 twice a day twice a day capsule by oral by oral twice a route. route. day by oral route. hydroxyzine hydroxyzine No hydroxyzin [facility] HCl 25 mg HCl 25 mg e HCl 25 C om[facility]i tablet Take tablet Take mg tablet ty 1 tablet 3 1 tablet 3 Take 1 H [facility] times a day times a day tablet 3 l by oral by oral times a Clinic s route. route. day by oral route. ibuprofen ibuprofen No 1capsul Q6H ibuprofen [facility] 200 mg 200 mg e(s) 200 mg [facility] capsule capsule capsule ty Take 1 Take 1 Take 1 [facility]osp[facility] capsule capsule capsule l every 6 every 6 every 6 Clinic s hours by hours by hours by oral route oral route oral route as needed. as needed. as needed. meclizine meclizine No meclizine [facility] 25 mg 25 mg 25 mg [facility] tablet TAKE tablet TAKE tablet ty 1 TABLET BY 1 TABLET BY TAKE 1 [facility] MOUTH THREE MOUTH THREE TABLET BY l TIMES DAILY TIMES DAILY MOUTH Clinics THREE TIMES DAILY metformin metformin No metformin [place] 1,000 mg 1,000 mg 1,000 mg Com alanna tablet Take tablet Take tablet ty 1 tablet by 1 tablet by Take 1 [facility]ospita mouth twice mouth twice tablet by l daily daily mouth Clinics twice daily montelukast montelukast No montelukas [facility] 10 mg 10 mg t 10 mg [facility] tablet Take tablet Take tablet ty 1 tablet by 1 tablet by Take 1 [facility]ospita mouth once mouth once tablet by l daily for daily for mouth once Clinics 90 days 90 days daily for 90 days omega-3 417 omega-3 417 No 1capsul BID omega-3 [facility] mg-dha 120 mg-dha 120 e(s) 417 mg-dha [facility] mg-epa-276 mg-epa-276 120 ty mg-fish oil mg-fish oil mg-epa-276 [facility] 600 600 mg-fish l mg-tumeric mg-tumeric oil 600 Clinics capsule capsule mg-tumeric Take 1 Take 1 capsule capsule capsule Take 1 twice a day twice a day capsule by oral by oral twice a route. route. day by oral route. Bactrim DS Bactrim DS No 1 Q12H Bactrim DS [facility] 800 mg-160 800 mg-160 800 mg-160 [facility] mg tablet mg tablet mg tablet ty Take 1 Take 1 Take 1 [facility]osp[facility] tablet tablet tablet l every 12 every 12 every 12 Cli nics hours by hours by hours by oral route. oral route. oral route. biotin biotin No 1 Q1D biotin [place] 1,000 mcg 1,000 mcg 1,000 mcg [facility] chewable chewable chewable ty tablet Take tablet Take tablet [facility] 1 tablet 1 tablet Take 1 l every day every day tablet Cli nics by oral by oral every day route. route. by oral route. bisoprolol bisoprolol No bisoprolol [facility] 10 10 10 [facility] mg-hydrochl mg-hydrochl mg-hydroch ty orothiazide [facility]ide [facility] 6.25 mg 6.25 mg de 6.25 mg l tablet Take tablet Take tablet Clinics 1 tablet by 1 tablet by Take 1 mouth once mouth once tablet by daily daily mouth once daily Farxiga 10 Farxiga 10 No Farxiga 10 [facility] mg tablet mg tablet mg tablet [facility] Take 1 Take 1 Take 1 ty tablet by tablet by tablet by Hospita mouth once mouth once mouth once l daily daily daily Clinics fenofibrate fenofibrate No fenofibrat [place] nanocrystal nanocrystal e C ommuni lized 145 lized 145 nanocrysta ty mg tablet mg tablet llized 145 [facility] Take 1 Take 1 mg tablet l tablet by tablet by Take 1 Cli nics mouth once mouth once tablet by daily daily mouth once daily glucosamine glucosamine No 1capsul BID glucosamin [facility] 116 116 e(s) e 116 [facility] mg-chondroi mg-chondroi mg-chondro ty tin 100 tin 100 itin 100 Hospi ta mg-dietary mg-dietary mg-dietary l supplement supplement supplement Clinics #25 capsule #25 capsule #25 Take 1 Take 1 capsule capsule capsule Take 1 twice a day twice a day capsule by oral by oral twice a route. route. day by oral route. hydroxyzine hydroxyzine No hydroxyzin [facility] HCl 25 mg HCl 25 mg e HCl 25 C [facility] tablet Take tablet Take mg tablet ty 1 tablet 3 1 tablet 3 Take 1 [facility] times a day times a day tablet 3 l by oral by oral times a Clinic s route. route. day by oral route. ibuprofen ibuprofen No 1capsul Q6H ibuprofen [facility] 200 mg 200 mg e(s) 200 mg [facility] capsule capsule capsule ty Take 1 Take 1 Take 1 [facility]osp[facility] capsule capsule capsule l every 6 every 6 every 6 Clinic s hours by hours by hours by oral route oral route oral route as needed. as needed. as needed. meclizine meclizine No meclizine [facility] 25 mg 25 mg 25 mg [facility] tablet TAKE tablet TAKE tablet ty 1 TABLET BY 1 TABLET BY TAKE 1 [facility] MOUTH THREE MOUTH THREE TABLET BY l TIMES DAILY TIMES DAILY MOUTH Clinics THREE TIMES DAILY metformin metformin No metformin [place] 1,000 mg 1,000 mg 1,000 mg Com alanna tablet Take tablet Take tablet ty 1 tablet by 1 tablet by Take 1 [facility]ospita mouth twice mouth twice tablet by l daily daily mouth Clinics twice daily montelukast montelukast No montelukas [facility] 10 mg 10 mg t 10 mg [facility] tablet Take tablet Take tablet ty 1 tablet by 1 tablet by Take 1 [facility]osp[facility] mouth once mouth once tablet by l daily daily mouth once Clinics daily omega-3 417 omega-3 417 No 1capsul BID omega-3 [facility] mg-dha 120 mg-dha 120 e(s) 417 mg-dha [facility] mg-epa-276 mg-epa-276 120 ty mg-fish oil mg-fish oil mg-epa-276 [facility]osp[facility] 600 600 mg-fish l mg-tumeric mg-tumeric oil 600 Clinics capsule capsule mg-tumeric Take 1 Take 1 capsule capsule capsule Take 1 twice a day twice a day capsule by oral by oral twice a route. route. day by oral route. biotin biotin No 1 Q1D biotin [place] 1,000 mcg 1,000 mcg 1,000 mcg [facility] chewable chewable chewable ty tablet Take tablet Take tablet [facility] 1 tablet 1 tablet Take 1 l every day every day tablet Cli nics by oral by oral every day route. route. by oral route. bisoprolol bisoprolol No bisoprolol [facility] 10 10 10 [facility] mg-hydrochl mg-hydrochl mg-hydroch ty orothiazide [facility]ide [facility] 6.25 mg 6.25 mg de 6.25 mg l tablet Take tablet Take tablet Clinics 1 tablet by 1 tablet by Take 1 mouth once mouth once tablet by daily daily mouth once daily Farxiga 10 Farxiga 10 No Farxiga 10 [facility] mg tablet mg tablet mg tablet [facility] Take 1 Take 1 Take 1 ty tablet by tablet by tablet by Hospita mouth once mouth once mouth once l daily daily daily Clinics fenofibrate fenofibrate No fenofibrat [place] nanocrystal nanocrystal e C ommuni lized 145 lized 145 nanocrysta ty mg tablet mg tablet llized 145 [facility]osp[facility] Take 1 Take 1 mg tablet l tablet by tablet by Take 1 Cli nics mouth once mouth once tablet by daily daily mouth once daily glucosamine glucosamine No 1capsul BID glucosamin [facility] 116 116 e(s) e 116 [facility] mg-chondroi mg-chondroi mg-chondro ty tin 100 tin 100 itin 100 Hospi ta mg-dietary mg-dietary mg-dietary l supplement supplement supplement Clinics #25 capsule #25 capsule #25 Take 1 Take 1 capsule capsule capsule Take 1 twice a day twice a day capsule by oral by oral twice a route. route. day by oral route. ibuprofen ibuprofen No 1capsul Q6H ibuprofen [facility] 200 mg 200 mg e(s) 200 mg [facility] capsule capsule capsule ty Take 1 Take 1 Take 1 [facility]osp[facility] capsule capsule capsule l every 6 every 6 every 6 Clinic s hours by hours by hours by oral route oral route oral route as needed. as needed. as needed. meclizine meclizine No meclizine [facility] 25 mg 25 mg 25 mg [facility] tablet TAKE tablet TAKE tablet ty 1 TABLET BY 1 TABLET BY TAKE 1 [facility] MOUTH THREE MOUTH THREE TABLET BY l TIMES DAILY TIMES DAILY MOUTH Clinics THREE TIMES DAILY metformin metformin No metformin [place] 1,000 mg 1,000 mg 1,000 mg Com alanna tablet Take tablet Take tablet ty 1 tablet by 1 tablet by Take 1 [facility]ospita mouth twice mouth twice tablet by l daily daily mouth Clinics twice daily montelukast montelukast No montelukas [facility] 10 mg 10 mg t 10 mg [facility] tablet Take tablet Take tablet ty 1 tablet by 1 tablet by Take 1 [facility]ospita mouth once mouth once tablet by l daily daily mouth once Clinics daily omega-3 417 omega-3 417 No 1capsul BID omega-3 [facility] mg-dha 120 mg-dha 120 e(s) 417 mg-dha [facility] mg-epa-276 mg-epa-276 120 ty mg-fish oil mg-fish oil mg-epa-276 [facility]osp[facility] 600 600 mg-fish l mg-tumeric mg-tumeric oil 600 Clinics capsule capsule mg-tumeric Take 1 Take 1 capsule capsule capsule Take 1 twice a day twice a day capsule by oral by oral twice a route. route. day by oral route. amoxicillin amoxicillin No amoxicilli [facility] 500 500 n 500 [facility] mg-potassiu mg-potassiu mg-potassi ty m m um [facility]ospita clavulanate clavulanate clavulanat l 125 mg 125 mg e 125 mg Clinics tablet tablet tablet bisoprolol bisoprolol No 1 Q1D bisoprolol [facility] 10 10 10 [facility] mg-hydrochl mg-hydrochl mg-hydroch ty orothiazide [facility]thiazide [facility] 6.25 mg 6.25 mg de 6.25 mg l tablet Take tablet Take tablet Clinics 1 tablet 1 tablet Take 1 every day every day tablet by oral by oral every day route. route. by oral route. metformin metformin No 1 BID metformin [place] 1,000 mg 1,000 mg 1,000 mg Com alanna tablet Take tablet Take tablet ty 1 tablet 1 tablet Take 1 Hospi ta twice a day twice a day tablet l by oral by oral twice a Clinic s route. route. day by oral route. montelukast montelukast No 1 Q1D montelukas [facility] 10 mg 10 mg t 10 mg [facility] tablet Take tablet Take tablet ty 1 tablet 1 tablet Take 1 Hospi ta every day every day tablet l by oral by oral every day Clin ics route. route. by oral route. Vital Signs Vital Name Observation Time Observation Value Comments Source BP Diastolic 2022-09-07 00:00:00 72 mm[Hg] [facility] Height 2022-09-07 00:00:00 63 [in_i] [facility] BMI (Body Mass 2022-09-07 00:00:00 52.4 kg/m2 [facility]) [facility] BP Systolic 2022-09-07 00:00:00 134 mm[Hg] [facility] Body Weight 2022-09-07 00:00:00 4736 [oz_av] [facility] BP Diastolic 2022-06-26 00:00:00 74 mm[Hg] [facility] Height 2022-06-26 00:00:00 63 [in_i] [facility] BMI (Body Mass 2022-06-26 00:00:00 52.1 kg/m2 [facility]) [facility] BP Systolic 2022-06-26 00:00:00 138 mm[Hg] [facility] Body Weight 2022-06-26 00:00:00 4704 [oz_av] [facility] BP Diastolic 2022-05-24 00:00:00 82 mm[Hg] [facility] Height 2022-05-24 00:00:00 63 [in_i] [facility] BMI (Body Mass 2022-05-24 00:00:00 50.3 kg/m2 [facility]) [facility] BP Systolic 2022-05-24 00:00:00 124 mm[Hg] [facility] Body Weight 2022-05-24 00:00:00 4544 [oz_av] [facility] BP Diastolic 2022-02-16 00:00:00 74 mm[Hg] [facility] Height 2022-02-16 00:00:00 63 [in_i] [facility] BMI (Body Mass 2022-02-16 00:00:00 52.4 kg/m2 [facility] s BP Systolic 2022-02-16 00:00:00 116 mm[Hg] [facility] Body Weight 2022-02-16 00:00:00 4736 [oz_av] [facility] BP Diastolic 2021-12-08 00:00:00 82 mm[Hg] [facility] Height 2021-12-08 00:00:00 63 [in_i] [facility] BMI (Body Mass 2021-12-08 00:00:00 53.3 kg/m2 [facility]) [facility] BP Systolic 2021-12-08 00:00:00 130 mm[Hg] [facility] Body Weight 2021-12-08 00:00:00 4816 [oz_av] [facility] BP Diastolic 2021-09-08 00:00:00 86 mm[Hg] [facility] Height 2021-09-08 00:00:00 63 [in_i] [facility] BMI (Body Mass 2021-09-08 00:00:00 54.7 kg/m2 [facility]) [facility] BP Systolic 2021-09-08 00:00:00 138 mm[Hg] [facility] Body Weight 2021-09-08 00:00:00 4944 [oz_av] [facility] Systolic blood 2021-08-01 14:34:00 136 mm[Hg] Un[facility] s[facility] of pressure [facility] Diastolic blood 2021-08-01 14:34:00 81 mm[Hg] Unive rsity of pressure [facility] Heart rate 2021-08-01 14:34:00 70 /min [facility] Body height 2021-08-01 14:34:00 160 cm [facility] Body weight 2021-08-01 14:34:00 144.425 kg [facility] BMI 2021-08-01 14:34:00 56.40 kg/m2 [facility] BP Diastolic 2021-06-27 00:00:00 72 mm[Hg] [facility] Height 2021-06-27 00:00:00 63 [in_i] [facility] BMI (Body Mass 2021-06-27 00:00:00 57.4 kg/m2 [facility] Index) [facility] BP Systolic 2021-06-27 00:00:00 144 mm[Hg] [facility] Body Weight 2021-06-27 00:00:00 5184 [oz_av] [facility] BP Diastolic 2021-06-23 00:00:00 80 mm[Hg] [facility] Height 2021-06-23 00:00:00 63 [in_i] [facility] BMI (Body Mass 2021-06-23 00:00:00 56.7 kg/m2 [facility] Index) [facility] BP Systolic 2021-06-23 00:00:00 118 mm[Hg] [facility] Body Weight 2021-06-23 00:00:00 5120 [oz_av] [facility] Height 2021-06-13 00:00:00 63 [in_i] [facility] BMI (Body Mass 2021-06-13 00:00:00 56.5 kg/m2 [facility] Index) [facility] Body Weight 2021-06-13 00:00:00 5104 [oz_av] [facility] BP Diastolic 2021-06-09 00:00:00 86 mm[Hg] [facility] Height 2021-06-09 00:00:00 63 [in_i] [facility] BMI (Body Mass 2021-06-09 00:00:00 56.9 kg/m2 [facility]) [facility] BP Systolic 2021-06-09 00:00:00 124 mm[Hg] [facility] Body Weight 2021-06-09 00:00:00 5136 [oz_av] [facility] BP Diastolic 2021-03-17 00:00:00 84 mm[Hg] [facility] Height 2021-03-17 00:00:00 63 [in_i] [facility] BMI (Body Mass 2021-03-17 00:00:00 57.9 kg/m2 [facility]) [facility] BP Systolic 2021-03-17 00:00:00 132 mm[Hg] [facility] Body Weight 2021-03-17 00:00:00 5232 [oz_av] [facility] BP Diastolic 2021-03-10 00:00:00 94 mm[Hg] [facility] Height 2021-03-10 00:00:00 63 [in_i] [facility] BMI (Body Mass 2021-03-10 00:00:00 56.9 kg/m2 [facility] BP Systolic 2021-03-10 00:00:00 172 mm[Hg] [facility] Body Weight 2021-03-10 00:00:00 5136 [oz_av] [facility] BP Diastolic 2020-12-06 00:00:00 76 mm[Hg] [facility] Height 2020-12-06 00:00:00 63 [in_i] [facility] BMI (Body Mass 2020-12-06 00:00:00 57.4 kg/m2 [facility] BP Systolic 2020-12-06 00:00:00 124 mm[Hg] [facility] Body Weight 2020-12-06 00:00:00 5184 [oz_av] [facility] BP Systolic 2017-09-05 13:19:00 119 mm[Hg] [facility] BP Diastolic 2017-09-05 13:19:00 76 mm[Hg] [facility] Height 2017-09-05 13:19:00 63 [in_us] [facility] Weight 2017-09-05 13:19:00 293 [lb_av] [facility] Body Mass Index 2017-09-05 13:19:00 51.9 kg/m2 [facility] Calculated Temperature 2017-09-05 13:19:00 98.2 [degF] [facility] Heart Rate 2017-09-05 13:19:00 91 /min [facility] BP Systolic 2017-08-15 13:52:00 137 mm[Hg] [facility] BP Diastolic 2017-08-15 13:52:00 86 mm[Hg] [facility] Height 2017-08-15 13:52:00 63 [in_us] [facility] Weight 2017-08-15 13:52:00 283 [lb_av] [facility] Body Mass Index 2017-08-15 13:52:00 50.13 kg/m2 [facility] Calculated Temperature 2017-08-15 13:52:00 98.1 [degF] [facility] Heart Rate 2017-08-15 13:52:00 94 /min [facility] BP Systolic 2017-08-08 12:58:00 117 mm[Hg] [facility] BP Diastolic 2017-08-08 12:58:00 76 mm[Hg] [facility] Height 2017-08-08 12:58:00 63 [in_us] [facility] Weight 2017-08-08 12:58:00 282 [lb_av] [facility] Body Mass Index 2017-08-08 12:58:00 49.95 kg/m2 [facility] Calculated Temperature 2017-08-08 12:58:00 98 [degF] [facility] Heart Rate 2017-08-08 12:58:00 73 /min [facility] Procedures Procedure Date / Time Performing Clinician Source Performed MAMMO, screening, digital, 2021-06-13 00:00:00 [facility] XR, foot, 3 or more view 2021-03-10 00:00:00 [facility] Appendectomy 2020-05-22 00:00:00 [facility] Cholecystectomy 2017-07-22 00:00:00 [facility] Plan of Care Planned Activity Planned Date Details Comments Source Diagnostic Test 2022-05-24 HbA1c (hemoglobin [facility] Pending 00:00:00 A1c), blood [code [facility] = HbA1c (hemoglobin A1c), blood] Diagnostic Test 2022-05-24 lipid panel, [facility] Pending 00:00:00 serum [code = [facility] lipid panel, serum] Diagnostic Test 2022-05-24 TSH, serum or [place] [facility] Pending 00:00:00 plasma [code = Hospital Clin ics TSH, serum or plasma] Diagnostic Test 2022-05-24 CMP, serum or [place] [facility] Pending 00:00:00 plasma [code = Hospital Clin ics CMP, serum or plasma] Future Appointment 2023-03-06 [facility] [address] [place] [address] Encounters Start End Encounter Admission Attending Care Care Encounter Source Date/Time Date/Time Type Type Clinicians Facility Department ID 2022-09-23 2022-09-23 Outpatient SAADIA [facility] [address] [place] 00:00:00 00:00:00 0305 [facility] i ty H[facility] 2022-09-07 2022-09-07 Aneesh [facility] [place] 00:00:00 00:00:00 [facility] [address] [facility], [facility]PITAL [place], [address] ERNESTINE , Ph. [phone] 2022-08-19 2022-08-19 Outpatient SAADIA [facility] [address] [place] 00:00:00 00:00:00 0129 [facility] i ty H[facility] Clinics 2022-08-19 2022-08-19 Outpatient ERICKSON_R [facility] [address] [place] 00:00:00 00:00:00 0131 Commun i ty Hospita [facility] Clinics 2022-08-19 2022-08-19 Outpatient ERICKSON_R [facility] [address] [place] 00:00:00 00:00:00 0203 Commun i ty Hospita l Clinics 2022-08-19 2022-08-19 Outpatient ERICKSON_R [facility] [address] [place] 00:00:00 00:00:00 0217 Commun i ty Hospita [facility] Clinics 2022-07-15 2022-07-15 Outpatient ERICKSON_R [facility] [address] [place] 00:00:00 00:00:00 1225 Commun i ty Hospita l Clinics 2022-06-26 2022-06-26 Outpatient ERICKSON_R [facility] [address] [place] 00:00:00 00:00:00 1206 Commun i ty Hospita l Clinics 2022-06-26 2022-06-26 Aneesh [facility] [place] [id number] [place] 00:00:00 00:00:00 [facility] DO: [address] [facility] G, HOSPITAL Clinic s [place], [place], [address] ERNESTINE , Ph. [phone] 2022-06-11 2022-06-11 Outpatient ERICKSON_R [facility] [address] [place] 00:00:00 00:00:00 1121 Commun i ty Hospita l Clinics 2022-05-24 2022-05-24 Outpatient ERICKSON_R [facility] [address] [place] 00:00:00 00:00:00 1103 Commun i ty Hospita l Clinics 2022-05-24 2022-05-24 [place] [id number] [place] 00:00:00 00:00:00 [facility] - ty DO: [address] a [facility], HOSPITAL [facility], [address] ERNESTINE , Ph. 2022-02-19 2022-02-19 Outpatient ERICKSON_R [facility] [address] [place] 00:00:00 00:00:00 0801 Commun i ty Hospita [facility] Clinics 2022-02-16 2022-02-16 Outpatient ERICKSON_R [facility] [address] [place] 00:00:00 00:00:00 0729 Commun i ty Hospita l Clinics 2022-02-16 2022-02-16 Aneesh [facility] [place] 00:00:00 00:00:00 [facility] ty DO: [address] [facility], [address] ERNESTINE , Ph. [phone] 2022-02-16 2022-02-16 Outpatient Ernestine [facility] [id number] 00:00:00 00:00:00 Aneesh [id number] Bubba [id number] 2021-12-08 2021-12-08 Outpatient ERICKSON_R [facility] [address] [place] 03:05:00 03:05:00 0520 Commun i ty Hospita l [facility] 2021-12-08 2021-12-08 Aneesh [facility] [place] 00:00:00 00:00:00 [facility] DO: [address] a [facility], HOSPITAL [facility], [address] ERNESTINE , Ph. 2021-12-08 2021-12-08 Outpatient Ernestine [facility] [id number] 00:00:00 00:00:00 Aneesh [id number] Bubba [id number] 2021-11-21 2021-11-21 Outpatient ERICKSON_R [facility] [address] [place] 04:50:00 04:50:00 0503 Commun i ty Hospita l Clinics 2021-10-24 2021-10-24 Outpatient ERICKSON_R [facility] [address] [place] 01:44:00 01:44:00 0405 Commun i ty Hospita l Clinics 2021-10-17 2021-10-17 Outpatient ERICKSON_R [facility] [address] [place] 10:50:00 10:50:00 0329 Commun i ty Hospita l Clinics 2021-09-19 2021-09-19 Outpatient ERICKSON_R [facility] [address] [place] 02:48:00 02:48:00 0301 Commun i ty Hospita l Clinics 2021-09-08 2021-09-08 Outpatient TOMMY ARANDA [facility] [id number] Univers 10:40:00 12:16:55 TOMMY CHAND t[facility] 2021-09-08 2021-09-08 Outpatient ERICKSON_R [facility] [address] [place] 03:38:00 03:38:00 0218 Commun i ty Hospita l Clinics 2021-09-08 2021-09-08 Aneesh [facility] [place] 00:00:00 00:00:00 Bubba [facility] DO: [address] a [facility] l [address], HOSPITAL Clinic [place], [address] ERNESTINE , Ph. 2021-09-08 2021-09-08 Outpatient Ernestine [facility] [id number] 00:00:00 00:00:00 Aneesh [id number] Bubba [id number] 2021-08-01 2021-08-01 Office Jagruti [facility] [id number] Univers 08:40:00 09:23:55 Visit [facility] [id number] Luis [id number] Salomon as MAGALI?BLEA [phone] [place] [id number] [place] [facility] 2021-07-11 2021-07-11 Outpatient ERICKSON_R [facility] [address] [place] 02:54:00 02:54:00 1221 Commun i ty Hospita l Clinics 2021-06-27 2021-06-27 Outpatient ERICKSON_R [facility] [address] [place] 11:34:00 11:34:00 1207 Commun i ty Hospita l Clinics 2021-06-27 2021-06-27 Aneesh [facility] [place] [id number] [place] 00:00:00 00:00:00 [facility] - ty DO: [address] [facility] Clinic [facility], [place], [address] ERNESTINE , Ph. [phone] 2021-06-27 2021-06-27 Outpatient Ernestine [facility] [id number] 00:00:00 00:00:00 Aneesh [id number] Bubba [id number] 2021-06-25 2021-06-25 Outpatient ERICKSON_R [facility] [address] [place] 09:22:00 09:22:00 1205 Commun i ty Hospita l Clinics 2021-06-23 2021-06-23 Outpatient ERICKSON_R [facility] [address] [place] 12:02:00 12:02:00 1203 Commun i ty Hospita l Clinics 2021-06-23 2021-06-23 Aneesh [facility] [place] [id number] [place] 00:00:00 00:00:00 [facility] - ty DO: [address] Hospit a [place], COMMUNITY l [facility], [address] ERNESTINE , Ph. [phone] 2021-06-23 2021-06-23 Outpatient Ernestine [facility] [id number] 00:00:00 00:00:00 Aneesh [id number] Bubba [id number] 2021-06-13 2021-06-13 Outpatient ERICKSON_R [facility] [address] [place] 06:13:00 06:13:00 1123 Commun i ty Hospita l [facility] 2021-06-13 2021-06-13 Aneesh [facility] [place] [id number] [place] 00:00:00 00:00:00 [facility] DO: [address] Hospit a [place], [place], [address] ERNESTINE , Ph. 2021-06-13 2021-06-13 Outpatient Ernestine [facility] [id number] 00:00:00 00:00:00 Aneesh [id number] Bubba [id number] 2021-06-09 2021-06-09 Outpatient ERICKSON_R [facility] [address] [place] 03:13:00 03:13:00 1119 Commun i ty Hospita [facility] 2021-06-09 2021-06-09 Aneesh [facility] [place] [id number] [place] 00:00:00 00:00:00 [facility] DO: [address] Hospit a [place], [place], [address] ERNESTINE , Ph. 2021-06-09 2021-06-09 Outpatient Ernestine [facility] [id number] 00:00:00 00:00:00 Aneesh [id number] Bubba [id number] 2021-03-17 2021-03-17 Outpatient ERICKSON_R [facility] [address] [place] 02:58:00 02:58:00 0827 Commun i ty Hospita l Clinics 2021-03-17 2021-03-17 Aneesh [facility] [place] 00:00:00 00:00:00 Bubba [facility] ty DO: [address] a [facility], HOSPITAL Clinic [place], [place], [address] ERNESTINE , Ph. 2021-03-17 2021-03-17 Outpatient Ernestien [facility] [id number] 00:00:00 00:00:00 Aneesh [id number] Bubba [id number] 2021-03-10 2021-03-10 Outpatient ERICKSON_R [facility] [address] [place] 02:39:00 02:39:00 0820 Commun i ty Hospita l Clinics 2021-03-10 2021-03-10 Outpatient Ernestine [facility] [id number] 00:00:00 00:00:00 Aneesh [id number] Bubba [id number] 2021-03-10 2021-03-10 Aneesh [facility] [place] 00:00:00 00:00:00 Bubba [facility] DO: [address] [facility] [place], [place], [address] ERNESTINE , Ph. 2020-12-27 2020-12-27 Outpatient ERICKSON_R [facility] [address] [place] 10:13:00 10:13:00 0608 Commun i ty Hospita l Clinics 2020-12-06 2020-12-06 Outpatient ERICKSON_R [facility] [address] [place] 05:54:00 05:54:00 0518 Commun i ty Hospita l Clinics 2020-12-06 2020-12-06 Outpatient Ernestine [facility] [id number] 00:00:00 00:00:00 Aneesh [id number] Bubba [id number] 2020-12-06 2020-12-06 [facility] [place] - [place] 18 [place] 00:00:00 00:00:00 [facility]: [address] a [facility] l [address], HOSPITAL Clinic [place], [place], [address] ERNESTINE , Ph. [phone] 2020-11-29 2020-11-29 Outpatient ERNESTINE_R [facility] 10[address] [place] 12:18:00 12:18:00 0511 Commun i ty Hospita l Clinics 2017-09-05 2017-09-05 Appointmen GENERAL, [facility] General [id number] [place] 13:15:00 13:15:00 t; SERVICE Surgery Physic i GENERAL, ans SERVICE 2017-08-15 2017-08-15 Appointmen GENERAL, [facility] General [id number] [place] 13:15:00 13:15:00 t; SERVICE Surgery Physic i GENERAL, ans SERVICE 2017-08-08 2017-08-08 Appointmen GENERAL, [facility] UTP [id number] [place] 13:00:00 13:00:00 t; SERVICE Physic i GENERAL, ans SERVICE Results Test Description Test Time Test Comments Results Result Comments Source Basic metabolic 2000 panel - Serum or Plasma 2021-12-02 00:0 0:00 Test Item Value Reference Range Interpretation Comme nts Glucose [Mass/volume] in Serum or Plasma (test code = 186 mg/dL 65-99 H 2345-7) Urea nitrogen [Mass/volume] in Serum or Plasma (test 14 mg/dL 6 -24 code = 3094-0) Creatinine [Mass/volume] in Serum or Plasma (test code = 0.85 mg/dL 0.57-1.00 2160-0) eGFR (test code = eGFR) 88 mL/min/1.73 >59 Urea nitrogen/Creatinine [Mass Ratio] in Serum or Plasma 16 9- (test code = 3097-3) Sodium [Moles/volume] in Serum or Plasma (test code = 141 mmol/L 957-743 8472-2) Potassium [Moles/volume] in Serum or Plasma (test code = 3.8 mmol/L 3.5-5.2 2823-3) Chloride [Moles/volume] in Serum or Plasma (test code = 102 mmol/L 96-106 2075-0) Carbon dioxide, total [Moles/volume] in Serum or Plasma 23 mmol/L 20-29 (test code = 2027-) Calcium [Mass/volume] in Serum or Plasma (test code = 8.9 mg/dL 8.7-10.2 20711-7) [facility].total [facility] Blood 2021-12-02 00:00:00 Test Item Value Reference Range Interpretation Comments Hemoglobin A1c/Hemoglobin.total in 7.8 % 4.8-5.6 H Blood (test code = 4548-4) [facility] 2000 panel - Serum or [id number] 00:00:00 Test Item Value Reference Range Interpretation Comments Glucose [Mass/volume] in Serum 169 mg/dL 65-99 H or Plasma (test code = 2345-7) Urea nitrogen [Mass/volume] in 18 mg/dL 6-24 Serum or Plasma (test code = 3094-0) Creatinine [Mass/volume] in 1.07 mg/dL 0.57-1.00 H Serum or Plasma (test code = 2160-0) Glomerular filtration 64 mL/min/1.73 >59 rate/1.73 sq M.predicted among non-blacks [Volume Rate/Area] in Serum, Plasma or Blood by Creatinine-based formula (CKD-EPI) (test code = 70449-4) Glomerular filtration 74 mL/min/1.73 >59 rate/1.73 sq M.predicted among blacks [Volume Rate/Area] in Serum, Plasma or Blood by Creatinine-based formula (CKD-EPI) (test code = 06183-2) Urea nitrogen/Creatinine [Mass 17 9-23 Ratio] in Serum or Plasma (test code = 3097-3) Sodium [Moles/volume] in Serum 139 mmol/L 134-144 or Plasma (test code = 2951-2) Potassium [Moles/volume] in 3.8 mmol/L 3.5-5.2 Serum or Plasma (test code = 2823-3) Chloride [Moles/volume] in 102 mmol/L 96-106 Serum or Plasma (test code = 2075-0) Carbon dioxide, total 21 mmol/L 20-29 [Moles/volume] in Serum or Plasma (test code = 2027-9) Calcium [Mass/volume] in Serum 9.4 mg/dL 8.7-10.2 or Plasma (test code = 18762-5) Protein [Mass/volume] in Serum 6.9 g/dL 6.0-8.5 or Plasma (test code = 2885-2) Albumin [Mass/volume] in Serum 4.4 g/dL 3.8-4.8 or Plasma (test code = 1751-7) Globulin [Mass/volume] in 2.5 g/dL 1.5-4.5 Serum by calculation (test code = 78917-8) Albumin/Globulin [Mass Ratio] 1.8 1.2-2.2 in Serum or Plasma (test code = 1759-0) Bilirubin.total [Mass/volume] 0.3 mg/dL 0.0-1.2 in Serum or Plasma (test code = 1974-2) Alkaline phosphatase 42 IU/L 44-121 L [Enzymatic activity/volume] in Serum or Plasma (test code = 6768-6) Aspartate aminotransferase 24 IU/L 0-40 [Enzymatic activity/volume] in Serum or Plasma (test code = 1920-8) Alanine aminotransferase 46 IU/L 0-32 H [Enzymatic activity/volume] in Serum or Plasma (test code = 1742-6) [facility]Hemoglobin.total in Blood 2021-06-10 00:00:00 Test Item Value Reference Range Interpretation Comments Hemoglobin A1c/Hemoglobin.total in 7.8 % 4.8-5.6 H Blood (test code = 4548-4) [facility] 2000 panel - Serum or [id number] 00:00:00 Test Item Value Reference Range Interpretation Comments Glucose [Mass/volume] in Serum 169 mg/dL 65-99 H or Plasma (test code = 2345-7) Urea nitrogen [Mass/volume] in 18 mg/dL 6-24 Serum or Plasma (test code = 3094-0) Creatinine [Mass/volume] in 1.07 mg/dL 0.57-1.00 H Serum or Plasma (test code = 2160-0) Glomerular filtration 64 mL/min/1.73 >59 rate/1.73 sq M.predicted among non-blacks [Volume Rate/Area] in Serum, Plasma or Blood by Creatinine-based formula (CKD-EPI) (test code = 09930-6) Glomerular filtration 74 mL/min/1.73 >59 rate/1.73 sq M.predicted among blacks [Volume Rate/Area] in Serum, Plasma or Blood by Creatinine-based formula (CKD-EPI) (test code = 72530-3) Urea nitrogen/Creatinine [Mass 17 9-23 Ratio] in Serum or Plasma (test code = 3097-3) Sodium [Moles/volume] in Serum 139 mmol/L 134-144 or Plasma (test code = 2951-2) Potassium [Moles/volume] in 3.8 mmol/L 3.5-5.2 Serum or Plasma (test code = 2823-3) Chloride [Moles/volume] in 102 mmol/L 96-106 Serum or Plasma (test code = 2074-0) Carbon dioxide, total 21 mmol/L 20-29 [Moles/volume] in Serum or Plasma (test code = 2027-9) Calcium [Mass/volume] in Serum 9.4 mg/dL 8.7-10.2 or Plasma (test code = 14784-3) Protein [Mass/volume] in Serum 6.9 g/dL 6.0-8.5 or Plasma (test code = 2885-2) Albumin [Mass/volume] in Serum 4.4 g/dL 3.8-4.8 or Plasma (test code = 1751-7) Globulin [Mass/volume] in 2.5 g/dL 1.5-4.5 Serum by calculation (test code = 86748-2) Albumin/Globulin [Mass Ratio] 1.8 1.2-2.2 in Serum or Plasma (test code = 1759-0) Bilirubin.total [Mass/volume] 0.3 mg/dL 0.0-1.2 in Serum or Plasma (test code = 1974-) Alkaline phosphatase 42 IU/L 44-121 L [Enzymatic activity/volume] in Serum or Plasma (test code = 6768-6) Aspartate aminotransferase 24 IU/L 0-40 [Enzymatic activity/volume] in Serum or Plasma (test code = 1920-8) Alanine aminotransferase 46 IU/L 0-32 H [Enzymatic activity/volume] in Serum or Plasma (test code = 1742-6) [facility]Hemoglobin.total in Blood 2021-06-10 00:00:00 Test Item Value Reference Range Interpretation Comments Hemoglobin A1c/Hemoglobin.total in 7.8 % 4.8-5.6 H Blood (test code = 4548-4) [facility] 2000 panel - Serum or [id number] 00:00:00 Test Item Value Reference Range Interpretation Comments Glucose [Mass/volume] in Serum 169 mg/dL 65-99 H or Plasma (test code = 2345-7) Urea nitrogen [Mass/volume] in 18 mg/dL 6-24 Serum or Plasma (test code = 3094-0) Creatinine [Mass/volume] in 1.07 mg/dL 0.57-1.00 H Serum or Plasma (test code = 2160-0) Glomerular filtration 64 mL/min/1.73 >59 rate/1.73 sq M.predicted among non-blacks [Volume Rate/Area] in Serum, Plasma or Blood by Creatinine-based formula (CKD-EPI) (test code = 77982-5) Glomerular filtration 74 mL/min/1.73 >59 rate/1.73 sq M.predicted among blacks [Volume Rate/Area] in Serum, Plasma or Blood by Creatinine-based formula (CKD-EPI) (test code = 01611-7) Urea nitrogen/Creatinine [Mass 17 9-23 Ratio] in Serum or Plasma (test code = 3097-3) Sodium [Moles/volume] in Serum 139 mmol/L 134-144 or Plasma (test code = 2951-2) Potassium [Moles/volume] in 3.8 mmol/L 3.5-5.2 Serum or Plasma (test code = 2823-3) Chloride [Moles/volume] in 102 mmol/L 96-106 Serum or Plasma (test code = 2075-0) Carbon dioxide, total 21 mmol/L 20-29 [Moles/volume] in Serum or Plasma (test code = 2027-9) Calcium [Mass/volume] in Serum 9.4 mg/dL 8.7-10.2 or Plasma (test code = 56679-3) Protein [Mass/volume] in Serum 6.9 g/dL 6.0-8.5 or Plasma (test code = 2885-2) Albumin [Mass/volume] in Serum 4.4 g/dL 3.8-4.8 or Plasma (test code = 1751-7) Globulin [Mass/volume] in 2.5 g/dL 1.5-4.5 Serum by calculation (test code = 70974-5) Albumin/Globulin [Mass Ratio] 1.8 1.2-2.2 in Serum or Plasma (test code = 1759-0) Bilirubin.total [Mass/volume] 0.3 mg/dL 0.0-1.2 in Serum or Plasma (test code = 1975-2) Alkaline phosphatase 42 IU/L 44-121 L [Enzymatic activity/volume] in Serum or Plasma (test code = 6768-6) Aspartate aminotransferase 24 IU/L 0-40 [Enzymatic activity/volume] in Serum or Plasma (test code = 1920-8) Alanine aminotransferase 46 IU/L 0-32 H [Enzymatic activity/volume] in Serum or Plasma (test code = 1742-6) [facility]Hemoglobin.total in Blood 2021-06-10 00:00:00 Test Item Value Reference Range Interpretation Comments Hemoglobin A1c/Hemoglobin.total in 7.8 % 4.8-5.6 H Blood (test code = 4548-4) [facility] W Auto Differential panel - [id number] 00:00:00 Test Item Value Reference Range Interpretation Comments Leukocytes [#/volume] in Blood 9.8 x10e3/uL 3.4-10.8 by Automated count (test code = 6690-2) Erythrocytes [#/volume] in 4.69 x10e6/uL 3.77-5.28 Blood by Automated count (test code = 789-8) Hemoglobin [Mass/volume] in 14.2 g/dL 11.1-15.9 Blood (test code = 718-7) Hematocrit [Volume Fraction] of 41.2 % 34.0-46.6 Blood by Automated count (test code = 4544-3) Erythrocyte mean corpuscular 88 fL 79-97 volume [Entitic volume] by Automated count (test code = 787-2) Erythrocyte mean corpuscular 30.3 pg 26.6-33.0 hemoglobin [Entitic mass] by Automated count (test code = 785-6) Erythrocyte mean corpuscular 34.5 g/dL 31.5-35.7 hemoglobin concentration [Mass/volume] by Automated count (test code = 786-4) Erythrocyte distribution width 12.4 % 11.7-15.4 [Ratio] by Automated count (test code = 788-0) Platelets [#/volume] in Blood 314 x10e3/uL 150-450 by Automated count (test code = 777-3) Neutrophils/100 leukocytes in 58 % not estab. Blood by Automated count (test code = 770-8) Lymphocytes/100 leukocytes in 32 % not estab. Blood by Automated count (test code = 736-9) Monocytes/100 leukocytes in 5 % not estab. Blood by Automated count (test code = 5905-5) Eosinophils/100 leukocytes in 4 % not estab. Blood by Automated count (test code = 713-8) Basophils/100 leukocytes in 1 % not estab. Blood by Automated count (test code = 706-2) immature cells (test code = horse shoer immature cells) Neutrophils [#/volume] in Blood 5.7 x10e3/uL 1.4-7.0 by Automated count (test code = 751-8) Lymphocytes [#/volume] in Blood 3.1 x10e3/uL 0.7-3.1 by Automated count (test code = 731-0) Monocytes [#/volume] in Blood 0.5 x10e3/uL 0.1-0.9 by Automated count (test code = 742-7) Eosinophils [#/volume] in Blood 0.4 x10e3/uL 0.0-0.4 by Automated count (test code = 711-2) Basophils [#/volume] in Blood 0.1 x10e3/uL 0.0-0.2 by Automated count (test code = 704-7) Immature granulocytes/100 0 % not estab. leukocytes in Blood by Automated count (test code = 33388-0) Immature granulocytes 0.0 x10e3/uL 0.0-0.1 [#/volume] in Blood by Automated count (test code = 36550-0) Nucleated erythrocytes/100 horse shoer leukocytes [Ratio] in Blood by Automated count (test code = 54058-0) Morphology [Interpretation] in horse shoer Blood Narrative (test code = 62504-8) [facility] 2000 panel - Serum or [id number] 00:00:00 Test Item Value Reference Range Interpretation Comments Glucose [Mass/volume] in 125 mg/dL 65-99 H Serum or Plasma (test code = 2345-7) Urea nitrogen [Mass/volume] 16 mg/dL 6-24 in Serum or Plasma (test code = 3094-0) Creatinine [Mass/volume] in 0.68 mg/dL 0.57-1.00 Serum or Plasma (test code = 2160-0) Glomerular filtration 108 mL/min/1.73 >59 rate/1.73 sq M.predicted among non-blacks [Volume Rate/Area] in Serum, Plasma or Blood by Creatinine-based formula (CKD-EPI) (test code = 51494-3) Glomerular filtration 125 mL/min/1.73 >59 rate/1.73 sq M.predicted among blacks [Volume Rate/Area] in Serum, Plasma or Blood by Creatinine-based formula (CKD-EPI) (test code = 18411-8) Urea nitrogen/Creatinine 24 9-23 H [Mass Ratio] in Serum or Plasma (test code = 3097-3) Sodium [Moles/volume] in 137 mmol/L 134-144 Serum or Plasma (test code = 2951-2) Potassium [Moles/volume] in 4.0 mmol/L 3.5-5.2 Serum or Plasma (test code = 2823-3) Chloride [Moles/volume] in 103 mmol/L 96-106 Serum or Plasma (test code = 2075-0) Carbon dioxide, total 20 mmol/L 20-29 [Moles/volume] in Serum or Plasma (test code = 8-9) Calcium [Mass/volume] in 9.6 mg/dL 8.7-10.2 Serum or Plasma (test code = 71708-1) Protein [Mass/volume] in 7.2 g/dL 6.0-8.5 Serum or Plasma (test code = 2885-2) Albumin [Mass/volume] in 4.5 g/dL 3.8-4.8 Serum or Plasma (test code = 1751-7) Globulin [Mass/volume] in 2.7 g/dL 1.5-4.5 Serum by calculation (test code = 11948-0) Albumin/Globulin [Mass Ratio] 1.7 1.2-2.2 in Serum or Plasma (test code = 1759-0) Bilirubin.total [Mass/volume] 0.3 mg/dL 0.0-1.2 in Serum or Plasma (test code = 1975-2) Alkaline phosphatase 60 IU/L 48-121 [Enzymatic activity/volume] in Serum or Plasma (test code = 6768-6) Aspartate aminotransferase 23 IU/L 0-40 [Enzymatic activity/volume] in Serum or Plasma (test code = 1920-8) Alanine aminotransferase 32 IU/L 0-32 [Enzymatic activity/volume] in Serum or Plasma (test code = 1742-6) [facility] or [id number] 00:00:00 Test Item Value Reference Range Interpretation Comments Cholesterol [Mass/volume] in Serum 192 mg/dL 100-199 or Plasma (test code = 2093-3) Triglyceride [Mass/volume] in Serum 425 mg/dL 0-149 H or Plasma (test code = 2571-8) Cholesterol in HDL [Mass/volume] in 36 mg/dL >39 L Serum or Plasma (test code = 2085-9) Cholesterol in VLDL [Mass/volume] 69 mg/dL 5-40 H in Serum or Plasma by calculation (test code = 27593-5) Cholesterol in LDL [Mass/volume] in 87 mg/dL 0-99 Serum or Plasma by calculation (test code = 77086-5) Laboratory comment [Text] in Report horse shoer Narrative (test code = 31092-1) [facility]em[facility].total [facility] Blood 2021-03-09 00:00:00 Test Item Value Reference Range Interpretation Comments Hemoglobin A1c/Hemoglobin.total in 7.2 % 4.8-5.6 H Blood (test code = 4548-4) Glucose mean value [Mass/volume] in 160 mg/dL Blood Estimated from glycated hemoglobin (test code = 72350-5) [facility] [Mass/volume] - Serum or [id number] 00:00:00 Test Item Value Reference Range Interpretation Comments Testosterone [Mass/volume] in Serum 33 NG/dL 4-50 or Plasma (test code = 2986-8) Testosterone Free [Mass/volume] in 2.6 pg/mL 0.0-4.2 Serum or Plasma (test code = 2991-8) [facility]] in Serum or Plasma by Detection limit <= 0.005 mIU/[id number] 00:00:00 Test Item Value Reference Range Interpretation Comments Thyrotropin [Units/volume] in 1.650 uIU/mL 0.450-4.500 Serum or Plasma by Detection limit <= 0.005 mIU/L (test code = 05224-0) [facility] [id number] 19:00:00 Test Item Value Reference Range Interpretation Comments Completed (test code = Completed) DONE [facility]
--- NOTE | 2022-12-23 21:34 | EDPHYS ---
Physician Documentation [facility] Name: Varsha Salvador Age: 42 yrs Sex: Female : 1980 Arrival Date: 12/23/2022 Time: 20:45 Bed 9 Private MD: ED Physician Bob Villanueva HPI: 12/23 22:10 This 42 yrs old Female presents to ER via Ambulatory with complaints of Sinus Pain, Ear snw Pain, Headache. 22:10 The patient presents with edema. Onset: The symptoms/episode began/occurred acutely, 2 snw week(s) ago, and became persistent. Associated signs and symptoms: Pertinent positives: ear ache, rhinorrhea, headache. Severity of symptoms: At their worst the symptoms were moderate. The patient has experienced similar episodes in the past, multiple times. The patient has not recently seen a physician. Historical: - Allergies: 20:56 adhesive tape-silicones; aa9 20:56 Latex, Natural Rubber; aa9 - Home Meds: 20:56 Metformin Oral [Active]; aa9 21:48 beysoprolol [Active]; kd3 - PMHx: 20:56 Diabetes - NIDDM; Hypertension; aa9 - PSHx: 20:56 Cholecystectomy; Appendectomy; aa9 - Immunization history:: Client reports having NOT received the Covid vaccine. - Social history:: Smoking status: Patient denies any tobacco usage or history of. ROS: 22:07 Neck: Negative for injury, pain, and swelling, Cardiovascular: Negative for chest pain, snw palpitations, and edema, Respiratory: Negative for shortness of breath, cough, wheezing, and pleuritic chest pain, Abdomen/GI: Negative for abdominal pain, nausea, vomiting, diarrhea, and constipation, Back: Negative for injury and pain, : Negative for injury, bleeding, discharge, and swelling, MS/Extremity: Negative for injury and deformity, Skin: Negative for injury, rash, and discoloration. 22:07 Psych: Negative for depression, anxiety, suicide ideation, homicidal ideation, and hallucinations. 22:07 Constitutional: Positive for body aches, malaise, poor PO intake. 22:07 Eyes: Positive for left eye tender. 22:07 ENT: Positive for ear pain, sinus congestion, sinus pain. 22:07 Neuro: Positive for headache, of the left eye. Exam: 22:06 Constitutional: This is a well developed, well nourished patient who is awake, alert, snw and in no acute distress. Neck: Trachea midline, no thyromegaly or masses palpated, and no cervical lymphadenopathy. Supple, full range of motion without nuchal rigidity, or vertebral point tenderness. No Meningismus. Chest/axilla: Normal chest wall appearance and motion. Nontender with no deformity. No lesions are appreciated. Cardiovascular: Regular rate and rhythm with a normal S1 and S2. No gallops, murmurs, or rubs. Normal PMI, no JVD. No pulse deficits. Respiratory: Lungs have equal breath sounds bilaterally, clear to auscultation and percussion. No rales, rhonchi or wheezes noted. No increased work of breathing, no retractions or nasal flaring. Abdomen/GI: Soft, non-tender, with normal bowel sounds. No distension or tympany. No guarding or rebound. No evidence of tenderness throughout. Back: No spinal tenderness. No costovertebral tenderness. Full range of motion. Skin: Warm, dry with normal turgor. Normal color with no rashes, no lesions, and no evidence of cellulitis. MS/ Extremity: Pulses equal, no cyanosis. Neurovascular intact. Full, normal range of motion. Neuro: Awake and alert, GCS 15, oriented to person, place, time, and situation. Cranial nerves II-XII grossly intact. Motor strength 5/5 in all extremities. Sensory grossly intact. Cerebellar exam normal. Normal gait. Psych: Awake, alert, with orientation to person, place and time. Behavior, mood, and affect are within normal limits. 22:06 Head/face: Noted is tenderness, that is moderate, of the nose, left cheek, left eye and left jaw. 22:06 Eyes: Exam is negative for acute changes. 22:06 ENT: Nose: is normal, Mouth: is normal, Posterior pharynx: Tonsils: bilaterally enlarged. Vital Signs: 20:52 BP 164 / 85; Pulse 69; Resp 18 S; Temp 98.4; Pulse Ox 94% on R/A; Weight 131.54 kg; aa9 Height 5 ft. 3 in. ; 20:52 Body Mass Index 51.37 (131.54 kg, 160.02 cm) aa9 MDM: 21:33 Patient medically screened. snw 22:08 Data reviewed: vital signs, nurses notes. I considered the following discharge snw prescriptions or medication management in the emergency department Medications were administered in the Emergency Department. See MAR. Care significantly affected by the following chronic conditions: environmental allergies. Counseling: I had a detailed discussion with the patient and/or guardian regarding: the historical points, exam findings, and any diagnostic results supporting the discharge/admit diagnosis, the need for outpatient follow up, to return to the emergency department if symptoms worsen or persist or if there are any questions or concerns that arise at home. Special discussion: I have referred the patient to see his PCP for further evaluation of high blood pressure. Based on the history and exam findings, there is no indication for further emergent testing or inpatient evaluation. I discussed with the patient/guardian the need to see the primary care provider for further evaluation of the symptoms. Administered Medications: 21:45 Drug: Dexamethasone IM 10 mg Route: IM; Site: right deltoid; kd3 21:49 Follow up: Response: No adverse reaction kd3 21:45 Drug: Amoxicillin-Clavulanate PO 875 mg Route: PO; kd3 21:49 Follow up: Response: No adverse reaction kd3 21:45 Drug: Famotidine PO 20 mg Route: PO; kd3 21:49 Follow up: Response: No adverse reaction kd3 21:45 Drug: Aspirin PO 325 mg Route: PO; kd3 21:49 Follow up: Response: No adverse reaction kd3 Disposition Summary: 12/23/22 21:33 Discharge Ordered Location: Home snw Condition: Stable snw Diagnosis - Allergic rhinitis, unspecified snw - Acute maxillary sinusitis, unspecified snw Followup: snw - With: Emergency Department - When: As needed - Reason: Worsening of condition Followup: snw - With: Private Physician - When: 1 - 2 days - Reason: Recheck today's complaints, Continuance of care, Re-evaluation by your physician Discharge Instructions: - Discharge Summary Sheet snw - Allergies, Adult snw - Allergic Rhinitis, Adult snw - Sinusitis, Adult snw Forms: - Medication Reconciliation Form snw - Thank You Letter snw - Antibiotic Education snw - Prescription Opioid Use snw Prescriptions: - Augmentin 875-125 mg Oral Tablet - take 1 tablet by ORAL route every 12 hours for 10 days; 20 tablet; Refills: 0, snw Product Selection Permitted - Pepcid 20 mg Oral Tablet - take 1 tablet by ORAL route once daily; 20 tablet; Refills: 0, Product snw Selection Permitted Signatures: Anastacia Ruth, AISHWARYA-C [employer]-Dimitriosw Vivian Delgado, RN RN kd3 Maggi Fragoso, RN RN aa9
--- NOTE | 2022-12-23 21:34 | ER ---
Nurse's Notes [facility] Name: Varsha Salvador Age: 42 yrs Sex: Female : 1980 Arrival Date: 12/23/2022 Time: 20:45 Bed 9 Private MD: Diagnosis: Allergic rhinitis, unspecified;Acute maxillary sinusitis, unspecified Presentation: 12/23 20:52 Chief complaint: Patient states: I think its a really bad sinus infection. pain on the aa9 left side of face, ear and jaw. I've been having allergies for months. I have clear nasal discharge. Coronavirus screen: Vaccine status: Patient reports being unvaccinated. Ebola Screen: No symptoms or risks identified at this time. Initial Sepsis Screen: Does the patient meet any 2 criteria? No. Patient's initial sepsis screen is negative. Does the patient have a suspected source of infection?. Risk Assessment: Do you want to hurt yourself or someone else? Patient reports no desire to harm self or others. Onset of symptoms was December 23, 2022. 20:52 Method Of Arrival: Ambulatory aa9 20:52 Acuity: KEDAR 4 aa9 Triage Assessment: 20:57 Headache History: The patient has had previous headaches and this one is similar to aa9 previous episodes. General: Appears comfortable, obese, Behavior is cooperative, restless. Pain: Complains of pain in left ear, left cheek and left jaw Pain currently is 9 out of 10 on a pain scale. Pain began 2-3 days ago. Also complains of photophobia, inability to work, sleeplessness. Neuro: Level of Consciousness is awake, alert, obeys commands, Oriented to person, place, time, situation. Cardiovascular: Patient's skin is warm and dry. Respiratory: Airway is patent Respiratory effort is even, unlabored. GI: Patient currently denies diarrhea, nausea, vomiting. : No signs and/or symptoms were reported regarding the genitourinary system. Historical: - Allergies: 20:56 adhesive tape-silicones; aa9 20:56 Latex, Natural Rubber; aa9 - Home Meds: 20:56 Metformin Oral [Active]; aa9 21:48 beysoprolol [Active]; kd3 - PMHx: 20:56 Diabetes - NIDDM; Hypertension; aa9 - PSHx: 20:56 Cholecystectomy; Appendectomy; aa9 - Immunization history:: Client reports having NOT received the Covid vaccine. - Social history:: Smoking status: Patient denies any tobacco usage or history of. Screenin:[address] [facility] ED Fall Risk Assessment (Adult) History of falling in the last 3 months, kd3 including since admission No falls in past 3 months (0 pts) Confusion or Disorientation No (0 pts) Intoxicated or Sedated No (0 pts) Impaired Gait No (0 pts) Mobility Assist Device Used No (0 pt) Altered Elimination No (0 pt) Score/Fall Risk Level 0 - 2 = Low Risk Maintained a safe environment. Abuse screen: Denies threats or abuse. Denies injuries from another. Nutritional screening: No deficits noted. Tuberculosis screening: No symptoms or risk factors identified. Vital Signs: 20:52 BP 164 / 85; Pulse 69; Resp 18 S; Temp 98.4; Pulse Ox 94% on R/A; Weight 131.54 kg; aa9 Height 5 ft. 3 in. ; 20:52 Body Mass Index 51.37 (131.54 kg, 160.02 cm) aa9 ED Course: 20:49 Patient arrived in ED. ja2 20:56 Triage completed. aa9 20:58 Arm band placed on right wrist. aa9 21:01 Patient has correct armband on for positive identification. Bed in low position. Adult aa9 w/ patient. Warm blanket given. 21:20 Anastacia Ruth FNP-C is PHCP. snw 21:20 Bob Villanueva MD is Attending Physician. snw 21:38 Vivian Delgado RN is Primary Nurse. kd3 21:48 No provider procedures requiring assistance completed. Patient did not have IV access kd3 during this emergency room visit. Administered Medications: 21:45 Drug: Dexamethasone IM 10 mg Route: IM; Site: right deltoid; kd3 21:49 Follow up: Response: No adverse reaction kd3 21:45 Drug: Amoxicillin-Clavulanate PO 875 mg Route: PO; kd3 21:49 Follow up: Response: No adverse reaction kd3 21:45 Drug: Famotidine PO 20 mg Route: PO; kd3 21:49 Follow up: Response: No adverse reaction kd3 21:45 Drug: Aspirin PO 325 mg Route: PO; kd3 21:49 Follow up: Response: No adverse reaction kd3 Medication: 21:49 VIS not applicable for this client. kd3 Outcome: 21:33 Discharge ordered by . gray 21:48 Discharged to home ambulatory. kd3 21:48 Condition: stable 21:48 Discharge instructions given to patient, family, Instructed on discharge instructions, follow up and referral plans. medication usage, Demonstrated understanding of instructions, follow-up care, medications, Prescriptions given X 2. 21:49 Patient left the ED. kd3 Signatures: Anastacia Ruth, [employer]-C [employer]-Bisi Mahmood Kyli, RN RN kd3 Maggi Fragoso RN RN aa9
[2022-12-23] MEDS ORDERED: AMOX/K CLAV 875 MG TAB ONE (21:48)
[2022-12-23] MEDS ORDERED: dexAMETHasone 10 MG/ML VIAL ONE (21:48)
[2022-12-23] MEDS ORDERED: ASPIRIN 325 MG TAB ONE (21:49)
[2022-12-23] MEDS ORDERED: FAMOTIDINE 20 MG TAB ONE (21:49)
== END 2022-12-23 21:49 | disposition home or self-care (01) ==
LOC: ER 20:45
DX: J01.00 Acute maxillary sinusitis, unspecified (principal); J30.9 Allergic rhinitis, unspecified; E11.9 Type 2 diabetes mellitus without complications; I10 Essential (primary) hypertension; Z91.040 Latex allergy status; Z91.048 Other nonmedicinal substance allergy status
CPT/HCPCS: 96372; 99284; J1100